=== PATIENT | male | born 1955 | race Caucasian/White ===

== ENCOUNTER 2017-03-29 21:30 | Emergency (ER) | payer BC ==
[~2017-03-29] VITALS: Ht 184.2 cm; Wt 104.4 kg
[~2017-03-29 21:30] MED LIST: ACET-1138 PO; ASPEC325 PO; CETI10TA84 PO; CHOL100010 PO; DIPH25CA5 PO; FLUT0.15 NAE; FRRG PO; HYDR2TAB3 PO; LISI-787 PO; MULT-506 PO; PRLSR20 PO
[2017-03-29 21:35] VITALS: TEMP 36.5; Ht 184.2 cm; Wt 104.4 kg
[2017-03-29] MEDS ORDERED: ASPCH81X PO (22:08)
[2017-03-29] MEDS ORDERED: CHOL1TAB42 PO (22:08)
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
[2017-03-29] MEDS ORDERED: OPTIRAY 320 IV PRN (22:15)
[2017-03-29 22:28] LABS: BASO % 0.6 %; BASO ABS # 0.05 K/uL (0-0.2); COMPLETE YES; EOS % 1.5 %; HEMATOCRIT 43.6 % (42-52); IG% 0.2 %; LYMPH % 19.8 %; MEAN CELL VOLUME 94.8 fL (80-100); MEAN CORPUSCULAR HEMOGLOBIN 32.8 pg (25-34); MEAN CORPUSCULAR HGB CONC 34.6 g/dl (32-36); MEAN PLATELET VOLUME 10.1 fL (7.4-10.4); MONO % 6.6 %; NEUT % 71.3 %; PLATELET COUNT 237 K/uL (130-400); WHITE BLOOD COUNT 8.09 K/uL (4.8-10.8)
[2017-03-29 22:44] LABS: ISTAT CREATININE 1.2 mg/dl (0.6-1.3); ISTAT HEMOGLOBIN 15.3 g/dl (14.0-18.0); ISTAT IONIZED CALCIUM 1.21 mmol/l (1.12-1.32)
[2017-03-29 22:45] LABS: CREATININE 1.44 mg/dl (0.60-1.40); POTASSIUM 3.9 mmol/L (3.5-5.1)
[2017-03-30 00:52] VITALS: BP 120/93; PULSE 64; O2SAT 94
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
== END 2017-03-30 00:54 | disposition home or self-care (01) ==
LOC: C.EDB 21:30 → C.EDC 03-30 00:54
DX: R10.13 Epigastric pain (principal); S30.1XXA Contusion of abdominal wall, initial encounter; W22.8XXA Striking against or struck by other objects, initial encounter; Y93.B9 Activity, other involving muscle strengthening exercises; Y99.8 Other external cause status; K21.9 Gastro-esophageal reflux disease without esophagitis; Z96.649 Presence of unspecified artificial hip joint; Z98.1 Arthrodesis status; Z98.890 Other specified postprocedural states; Z82.49 Family history of ischemic heart disease and other diseases of the circulatory system; Z79.82 Long term (current) use of aspirin; Z79.899 Other long term (current) drug therapy

== ENCOUNTER 2017-05-21 06:56 | Emergency (ER) | payer BC ==
[~2017-05-21] VITALS: Ht 185.4 cm; Wt 105.9 kg
[~2017-05-21 06:56] MED LIST changes: -ACET-1138 PO; +ASPCH81X PO; -ASPEC325 PO; -CHOL100010 PO; +CHOL1TAB42 PO; -DIPH25CA5 PO; -FRRG PO; -HYDR2TAB3 PO
[2017-05-21 07:05] VITALS: O2SAT 98; Ht 185.4 cm; Wt 105.9 kg
[2017-05-21] MEDS ORDERED: IBUP-1428 PO (07:25)
[2017-05-21] MEDS ORDERED: ASPI81TA28 PO (07:25)
[2017-05-21] MEDS ORDERED: ASPI325T45 PO (07:27)
[2017-05-21] MEDS ORDERED: MELATAB2 PO (07:28)
[2017-05-21 07:40] LABS: BASO % 0.6 %; BASO ABS # 0.03 K/uL (0-0.2); EOS % 1.7 %; EOS ABS # 0.09 K/uL (0-0.5); HEMATOCRIT 40.8 % (42-52); HEMOGLOBIN 14.3 g/dL (14.0-18.0); IG# 0.02 K/uL (0.00-0.02); LYMPH % 24.4 %; LYMPH ABS # 1.32 K/uL (1.2-3.4); MEAN CELL VOLUME 94.2 fL (80-100); MEAN PLATELET VOLUME 9.7 fL (7.4-10.4); MONO % 7.6 %; MONO ABS # 0.41 K/uL (0.11-0.59); NEUT % 65.3 %; NEUT ABS # 3.54 K/uL (1.4-6.5); PLATELET COUNT 201 K/uL (130-400); RED CELL DISTRIBUTION WIDTH CV 12.8 % (11.5-14.5); RED CELL DISTRIBUTION WIDTH SD 43.8 fL (36.4-46.3); WHITE BLOOD COUNT 5.41 K/uL (4.8-10.8)
--- NOTE | 2017-05-21 07:44 | DIAGNOSTIC IMAGING REPORT ---
CHEST ONE VIEW PORTABLE CLINICAL HISTORY: Atypical chest pain COMPARISON STUDY: 04/03/2015 FINDINGS: The cardiac and mediastinal contours are normal. There is no evidence of focal pulmonary consolidation. There is no evidence of failure. No pleural effusions are visualized.[ IMPRESSION: No active disease in the chest. Electronically signed by: Dennis Zafar M.D. 05/21/2017 7:43 AM Dictated Date/Time: 05/21/2017 7:39 AM
[2017-05-21] MEDS ORDERED: OPTIRAY 320 IV PRN (07:45)
[2017-05-21 07:57] LABS: ALBUMIN 3.8 gm/dl (3.4-5.0); POTASSIUM 3.8 mmol/L (3.5-5.1)
[2017-05-21 07:59] LABS: TOTAL PROTEIN 6.9 gm/dl (6.4-8.2)
--- NOTE | 2017-05-21 08:38 | DIAGNOSTIC IMAGING REPORT ---
CHEST COMBO ANGIO DISSECTION CT DOSE: 1037.36 mGy.cm HISTORY: 62 years-old Male presents with acute chest and thoracic pain with concern for possible aortic dissection. TECHNIQUE: Multiple CTA images of the chest were obtained after the intravenous administration of 93 ml Optiray 320. Coronal and sagittal MIPS were obtained from the axial data set and were submitted for review. A dose lowering technique was utilized adhering to the principles of ALARA. COMPARISON: Chest CT 03/29/2017. FINDINGS: CTA: There is no intramural hematoma identified on the noncontrast scan. Coronary arterial disease. Heart is upper limits of normal in size without pericardial effusion. The thoracic aorta is normal in both course and caliber. The imaged proximal great vessels are patent. There is no aortic dissection or aneurysm identified. Mild atherosclerosis of the thoracic aorta is present. The opacified pulmonary arterial tree is unremarkable. CT CHEST: 4 mm low attenuating nodule of the left thyroid lobe is present. No pathologic-appearing lymph nodes about the chest. There is mild dependent subsegmental atelectasis bilaterally. No pneumothorax, pleural effusion or focal airspace consolidation. Central airways appear patent. Low attenuating lesions throughout the liver again seen, largest which measures 1.2 cm within the hepatic dome, indeterminate. These may reflect hepatic cysts. Upper abdominal structures demonstrate no acute abnormality. Soft tissues are unremarkable. Degenerative changes are seen throughout the thoracic spine. IMPRESSION: 1. No acute intrathoracic abnormality identified. 2. Mild atherosclerosis of the thoracic aorta without evidence of aneurysm, dissection or intramural hematoma. The above report was generated using voice recognition software. It may contain grammatical, syntax or spelling errors. Electronically signed by: Kamron Berg M.D. 05/21/2017 8:37 AM Dictated Date/Time: 05/21/2017 8:26 AM
[2017-05-21] MEDS ORDERED: ALUMINUM/MAGNESIUM SUSP 30 ML UDC PO STA (08:47)
[2017-05-21] MEDS ORDERED: LIDOCAINE HCL 2% VISC SOLN 20 ML UDC PO STA (08:47)
[2017-05-21 10:10] VITALS: BP 132/85; PULSE 68
--- NOTE | 2017-05-21 17:32 | EMERGENCY ROOM VISIT NOTE ---
ED Visit Note First contact with patient: 07:00 Chief Complaint: Chest pain. History of Present Illness: Mr. Sanford is a 62 year-old white male who ambulates into the ED accompanied by his complaining of chest pain. Historically patient reports personal history of hypertension but no coronary artery disease or diabetes. Patient does report on 03/29/2017 he had a chest CT for trauma and was found to have mild dilatation of the proximal aspect of the descending thoracic aortic measuring up to 3.2 cm transversely but no dissection. A follow-up echocardiogram was performed and was reported him as normal; I was not able to review that result area Additionally he reports he has a history of family or valvular heart disease but no coronary disease. Patient reports intermittent chest pain for the last month. Patient has been variable on its onset of activities and resolution. He has not been assessed for his previous episodes. Patient reports he had an acute onset of upper sternal discomfort that started approximately 6 hours before he came to the emergency department. Since that time the discomfort has been constant. He describes his discomfort as a tightness sensation. He rates his discomfort 2/10. The discomfort is nonradiating. He has not identified any aggravating or alleviating factors rated to this discomfort. Associated with his discomfort he reports 2 days ago he fell walking out of his truck and is experiencing midthoracic back pain between the shoulder blades; this discomfort has not been aggravated since the onset of his chest discomfort. He does report he has taken 1 baby aspirin, his prescribed Prilosec and his blood pressure medication prior to arrival at the hospital without relief of his discomfort. Patient denies fevers, chills, sweats, skin eruptions, skin color changes, upper respiratory tract symptoms, wheezing, cough shortness of breath, orthopnea , dependent edema, previous clots, claudication, cramping, recent surgery/ inactivity/extended travel, abdominal pain, nausea, vomiting, diarrhea, constipation, rectal bleeding, black/tarry stools, urinary symptoms, back/flank pain. Review of Systems: As noted above in history of present illness. All body systems were reviewed and found to be negative as noted above. Past Medical History: As previously noted and osteoarthritis, status post right hip arthroplasty, TMJ reconstruction, left knee arthroplasty and lumbar fusion. Current Medications: Medications Dose Route/Sig Max Daily Dose Days Date Category Melatonin Maximum Strengt (Melatonin) 5 Mg Tab 2 Tab PO HS 30 05/21/17 Reported Aspirin 325 Mg Tab 325 Mg PO UD 05/21/17 Reported Motrin (Ibuprofen) 800 Mg Tab 800 Mg PO UD PRN 05/21/17 Reported Aspirin Ec (Aspirin) 81 Mg Tab 81 Mg PO HS 05/21/17 Reported Vitamin D (Cholecalciferol) 5,000 Unit Tab 5,000 Units PO QAM 03/29/17 Reported Zyrtec (Cetirizine HCl) 10 Mg Tab 10 Mg PO QAM 04/03/15 Reported Zestoretic 20MG/12.5MG (HCTZ/Lisinopril) Tab 1 Tab PO QAM 04/03/15 Reported Flonase Allergy Relief (Fluticasone Propionate (Nasal)) 50 Mcg/Act Spr 2 Sprays IRAM DAILY PRN 04/03/15 Reported Multivitamin (Multivitamins) Tab 1 Tab PO QAM 10/14/13 Reported Prilosec (Omeprazole) 20 Mg Capcr 20 Mg PO QAM 06/08/08 Reported Allergies to Medications: Oxycodone. Social History: Patient is not currently employed; he feels safe in his home environment; he denies tobacco use and admits to alcohol use. Physical Examination: Vital Signs: Date Time Temp Pulse Resp B/P (MAP) Pulse Ox O2 Delivery O2 Flow Rate FiO2 05/21/17 10:10 68 132/85 05/21/17 09:10 65 112/81 05/21/17 08:22 57 18 141/90 05/21/17 07:15 62 05/21/17 07:12 98 Room Air 05/21/17 07:05 65 18 146/99 98 Room Air GENERAL: 62-year-old female in no acute distress, nontoxic-appearing, afebrile and hemodynamically stable. NEUROLOGICAL: Awake, alert and oriented to person, place and time. Answering questions appropriately and following commands. Normal gait. Good hand eye coordination. SKIN: Warm, dry and pink. No soft tissue eruptions or trauma noted. HEENT: Atraumatic and normocephalic. PERRLA. Sclera white and conjunctiva pink. Oral cavity moist and pink. Pharynx is nonerythematous or edematous. Speech normal. No lymphadenopathy. Trachea midline. No jugular venous distention. No carotid bruits. BACK: No tenderness over the bony cervical or thoracic spine. Mild tenderness in the mid trapezius level and rhomboid muscle group area without palpable spasm. No CVA tenderness. THORAX: Lungs sounds are clear to auscultation and equal bilaterally with symmetrical chest wall. No wheezing, rales or rhonchi. No crepitus, tenderness , subcutaneous air or deformities noted. HEART: Regular rate and rhythm. No gallops, rubs or murmurs are appreciated. No lifts, heaves or thrills. PMI is not displaced. ABDOMEN: Flat and soft with mild tenderness in the epigastrium. Positive bowel sounds in all quadrants. No guarding, rigidity or organomegaly. EXTREMITIES: Moves all extremities well on command and with purpose. All distal neurovascular statuses are intact and equal bilaterally. No dependent edema or calf tenderness/cords. ED Course: Patient is assessed as noted above. Laboratory Testing: Test 05/21/17 07:25 05/21/17 07:32 Range/Units White Blood Count 5.41 4.8-10.8 K/uL Red Blood Count 4.33 4.7-6.1 M/uL Hemoglobin 14.3 14.0-18.0 g/dL Hematocrit 40.8 42-52 % Mean Corpuscular Volume 94.2 80-100 fL Mean Corpuscular Hemoglobin 33.0 25-34 pg Mean Corpuscular Hemoglobin Concent 35.0 32-36 g/dl Platelet Count 201 130-400 K/uL Mean Platelet Volume 9.7 7.4-10.4 fL Neutrophils (%) (Auto) 65.3 % Lymphocytes (%) (Auto) 24.4 % Monocytes (%) (Auto) 7.6 % Eosinophils (%) (Auto) 1.7 % Basophils (%) (Auto) 0.6 % Neutrophils # (Auto) 3.54 1.4-6.5 K/uL Lymphocytes # (Auto) 1.32 1.2-3.4 K/uL Monocytes # (Auto) 0.41 0.11-0.59 K/uL Eosinophils # (Auto) 0.09 0-0.5 K/uL Basophils # (Auto) 0.03 0-0.2 K/uL RDW Standard Deviation 43.8 36.4-46.3 fL RDW Coefficient of Variation 12.8 11.5-14.5 % Immature Granulocyte % (Auto) 0.4 % Immature Granulocyte # (Auto) 0.02 0.00-0.02 K/uL Sodium Level 139 136-145 mmol/L Potassium Level 3.8 3.5-5.1 mmol/L Chloride Level 105 98-107 mmol/L Carbon Dioxide Level 27 21-32 mmol/L Anion Gap 7.0 3-11 mmol/L Blood Urea Nitrogen 16 7-18 mg/dl Creatinine 1.00 0.60-1.40 mg/dl Est Creatinine Clear Calc Drug Dose 95.3 ml/min Estimated GFR () 91.8 Estimated GFR (Non- 79.2 BUN/Creatinine Ratio 16.3 10-20 Random Glucose 106 70-99 mg/dl Calcium Level 9.0 8.5-10.1 mg/dl Total Bilirubin 1.1 0.2-1 mg/dl Direct Bilirubin 0.2 0-0.2 mg/dl Aspartate Amino Transf (AST/SGOT) 53 15-37 U/L Alanine Aminotransferase (ALT/SGPT) 46 12-78 U/L Alkaline Phosphatase 63 45-117 U/L Total Protein 6.9 6.4-8.2 gm/dl Albumin 3.8 3.4-5.0 gm/dl Lipase 192 73-393 U/L Bedside Troponin I < 0.030 0-0.045 ng/ml Chest X-Rays: Were read by myself and the radiologist showing no acute infiltrates, effusions or pneumothorax. Normal heart silhouette and bony anatomy. Contrast CT of the Aorta: Was reviewed by myself and read by the radiologist showing no acute intrathoracic abnormalities. Mild atherosclerosis within the thoracic aorta without evidence of aneurysm, dissection or intramural hematoma. EKG #!: 0704 Was read by myself and reviewed with Dr. Posadas; shows sinus bradycardia with a ventricular rate of 59 bpm. Left axial deviation, incomplete right bundle-branch block and nonspecific EKG changes. This was compared to a previous from 2015 which shows improvement of ST inversion in the inferior leads but the incomplete right bundle-branch block appears new. EKG #2: 0940 was read myself and reviewed with Dr. Posadas; shows sinus bradycardia with a ventricular rate of 59 bpm. There is a sinus arrhythmia, left axial deviation. The new incomplete right bundle-branch findings are no longer present. There is no new ischemic changes. Patient was hydrated with normal saline. Patient was reassessed multiple times during his stay in the emergency department. Patient was given oral GI cocktail for his symptoms with the reported improvement of his chest discomfort. Patient's case was reviewed with Dr. Posadas; we agreed on diagnostic approach, treatment, disposition and plan. Patient was educated about today's findings and instructed on his treatment plan ; he verbalized understanding and agreement with this plan. Clinical Impression: Chest pain. Decision-Making: Initially my differential diagnosis I considered acute coronary syndrome, thoracic aneurysm, pneumothorax, pneumonia, pulmonary embolism, gastroesophageal reflux, esophagitis and other causes. Disposition: Patient discharged home in stable condition accompanied by his ; prior to departure he was reassessed and subjectively reported he was feeling better and rated his overall discomfort 2/10. Plan: Patient was encouraged to continue his current medications as prescribed. Patient was encouraged to stay well-hydrated, use a bland diet and avoid stomach irritants. Patient was encouraged to follow-up with family physician for recheck and possible referral to cardiology and/or gastroenterology. Patient was encouraged return ED for worsening/uncontrolled pain, shortness of breath, vomiting, bloody stools or any new/concerning symptoms.
== END 2017-05-21 10:39 | disposition home or self-care (01) ==
LOC: C.EDB 06:57
DX: R07.9 Chest pain, unspecified (principal); I10 Essential (primary) hypertension; Z96.641 Presence of right artificial hip joint; Z96.652 Presence of left artificial knee joint; Z98.1 Arthrodesis status; Z79.82 Long term (current) use of aspirin

== ENCOUNTER 2020-10-29 05:53 | Inpatient (IN) ==
--- NOTE | 2020-10-05 14:48 | PAT Medication Instructions ---
Medication Instructions Date of Service October 05, 2020 Home Medications acetaminophen 1,500 mg PO HS PRN amlodipine 5 mg PO QAM aspirin 81 mg PO HS atorvastatin 20 mg PO HS cetirizine 10 mg PO HS cholecalciferol (vitamin D3) [Vitamin D3] 125 mcg PO QAM ibuprofen 800 mg PO TID PRN lisinopril 40 mg PO QAM melatonin 10 mg PO HS metoprolol succinate 25 mg PO QAM multivitamin 1 tab PO QAM omeprazole 20 mg PO QAM trazodone 100 mg PO HS ASK your surgeon for instructions ibuprofen 800 mg PO TID PRN DO NOT take the morning of surgery cholecalciferol (vitamin D3) [Vitamin D3] 125 mcg PO QAM lisinopril 40 mg PO QAM multivitamin 1 tab PO QAM Take morning of surgery With a small sip of water, OTHERWISE NOTHING TO EAT OR DRINK AFTER MIDNIGHT: amlodipine 5 mg PO QAM metoprolol succinate 25 mg PO QAM omeprazole 20 mg PO QAM Take evening before surgery acetaminophen 1,500 mg PO HS PRN (if needed) aspirin 81 mg PO HS atorvastatin 20 mg PO HS cetirizine 10 mg PO HS melatonin 10 mg PO HS trazodone 100 mg PO HS Other Notes If you have any questions please call us at [phone] or [phone] or [phone] or [phone]
--- NOTE | 2020-10-08 14:04 | Anesthesiology Consultation ---
Date of Service October 08, 2020 Assessment & Plan (1) Encounter for pre-operative examination: COVID Status: As of 10/08 assessment, patient denies travel to endemic area, known exposure/sick contacts, or symptoms of COVID19. Patient advised to adhere to social distancing guidelines, wear a mask in public and avoid large crowds or unnecessary travel in the 2 weeks leading up to surgery. Preoperative COVID19 testing to be completed prior to surgery per surgeon's arrangements. Patient encouraged to be extra cautious/conscientious with COVID precautions between COVID testing and surgery. Pt is fully vaccinated. Pending cardio clearance 10/12. Will send EKG to [facility] cardio for their review. Chart Review Chart Review: Acceptable Risk for Surgery (pending [facility] cardio appt) and Patient seen in Pre Admission Testing Teaching & Discussion Instructed NPO after midnight before surgery, except medications with 15 cc of water. Medication instructions provided according to the PAT guidelines. History Surgery Operation Date: 10/29/20 10:05 Proposed Procedures p C5-C7 Anterior Cervical Discectomy and Fusion Spinal Cord Monitoring - Eric Whitlye DO Height/Weight Height: 6 ft 1 in Weight: 105.5 kg Allergies Allergy/AdvReac Type Severity Reaction Status Date / Time oxycodone Allergy Unknown itching Verified 10/03/20 12:45 Medications Home Medications Medication Instructions Recorded Confirmed Last Taken acetaminophen 1,500 mg PO HS PRN 10/03/20 10/03/20 Unknown amlodipine 5 mg PO QAM 10/03/20 10/03/20 Unknown aspirin 81 mg PO HS 10/03/20 10/03/20 Unknown atorvastatin 20 mg PO HS 10/03/20 10/03/20 Unknown cetirizine 10 mg PO HS 10/03/20 10/03/20 Unknown cholecalciferol (vitamin D3) 125 mcg PO QAM 10/03/20 10/03/20 Unknown [Vitamin D3] ibuprofen 800 mg PO TID PRN 10/03/20 10/03/20 Unknown lisinopril 40 mg PO QAM 10/03/20 10/03/20 Unknown melatonin 10 mg PO HS 10/03/20 10/03/20 Unknown metoprolol succinate 25 mg PO QAM 10/03/20 10/03/20 Unknown multivitamin 1 tab PO QAM 10/03/20 10/03/20 Unknown omeprazole 20 mg PO QAM 10/03/20 10/03/20 Unknown trazodone 100 mg PO HS 10/03/20 10/03/20 Unknown Past Medical History Medical History Dilatation of aorta mild? [place] [facility] cardiology [place] [facility]. GERD (gastroesophageal reflux disease) Hyperlipidemia Hypertension Nausea and vomiting after administration of anesthetic agent Ocular migraine "a couple times a year" Osteoarthritis Past Family History Family History Other No family history of adverse response to anesthesia Past Surgical History Surgical History History of colonoscopy History of esophagogastroduodenoscopy (EGD) History of mandibular surgery (~1984) to repair cartilage tear S/P epidural steroid injection S/P hip replacement bilateral S/P left knee arthroscopy S/P lumbar fusion L5-S1 Past Anesthesia History No Hx of Anesthesia Complications (other than PONV) and No Family Hx of Anesthesia Complications History of PONV History of PONV (after first ARUELIO - had general anesthesia) and Hx of Motion Sickness Social History Smoking Status: Never smoker Do You Dip or Chew Tobacco: No Hx Alcohol Use: Yes Alcohol type: beer and hard liquor alcohol intake frequency: a few times a week Hx Substance Use: No substance use type: does not use Review of Systems Pt denies any recent chest pain, shortness of breath, palpitations, cough, fever, URI. +persistent GERD depsite PPI Physical Exam Vital Signs BP: 108/71 P: 56bpm SPO2: 95% RA T: 98.5 F R: 16 ENMT Mouth: + dental restorations (few gold crowns); no chipped teeth and no loose teeth Thyromental Distance: < 3.5 Finger Breadths (3) Mallampati Class: I Neck normal visual inspection, + limited neck extension (but parathesias with full extension) and + facial hair (medum length goatee) Respiratory normal respiratory effort, lungs clear to auscultation Cardiovascular RRR, no murmur, no edema Vessels: no carotid bruit Lab Results Anesthesia Preop Results Results Anesthesia Widget: WBC 5.28 K/uL (4.8-10.8) 10/08/20 Hgb 13.8 g/dL (14.0-18.0) L 10/08/20 Hct 40.7 % (42-52) L 10/08/20 Plt 191 K/uL (130-400) 10/08/20 PT 9.9 Seconds (9.0-12.0) 10/08/20 PTT 25.0 Seconds (21.0-31.0) 10/08/20 INR 1.0 (0.9-1.1) 10/08/20 Urine Color Yellow 10/08/20 Urine Appearance Clear (Clear) 10/08/20 Urine pH 6.0 (4.5-7.5) 10/08/20 Urine Specific [place] 1.015 (1.000-1.030) 10/08/20 Urine Protein Negative (Negative) 10/08/20 Urine Glucose (UA) Negative (Negative) 10/08/20 Urine Ketones Negative (Negative) 10/08/20 Urine Blood Negative (Negative) 10/08/20 Urine Nitrite Negative (Negative) 10/08/20 Urine Bilirubin Negative (Negative) 10/08/20 Urine Urobilinogen Negative (Negative) 10/08/20 Urine Leukocyte Esterase Negative (Negative) 10/08/20 Blood Type O Positive 10/08/20 Antibody Screen NEGATIVE 10/08/20 Testing Laboratory Results 09/25/20 SODIUM: 141 POTASSIUM: 4.4 CHLORIDE: 105 CO2: 27 BUN: 16 CREATININE: 1.0 GLUCOSE: 118 Electrocardiogram Date: 10/08/20 Sinus bradycardia at 53 bpm. Left axis deviation. Nonspecific intraventricular conduction block. Compared with EKG of 05/21/2017, QRS duration has increased, criteria for septal infarct are no longer present. Echocardiogram Date: 04/29/18 EF: 62% The LV cavity size is normal. Mild concentric LVH. LV wall motion is normal. Grade 1 diastolic dysfunction of the left ventricle. The aortic root is mildly enlarged. Compared to previous study dated 04/21/2017, dimension of the aortic root is stable. Diameter of the ascending aorta is mildly increased and is now mildly enlarged. Other Testing Chest CT angiogram 08/30/2020 Subpleural reticular opacities within bilateral lower lobes, not significantly changed from 08/26/2018. No pleural effusion or pneumothorax. Central airways are clear. Unchanged mild ectasia of the aortic root without aneurysmal dilation.
[2020-10-29] MEDS ORDERED: CeleBREX 200 MG CAP PO SCH (06:00)
[2020-10-29] MEDS ORDERED: ACETAMINOPHEN 500 MG TAB PO SCH (06:00)
[2020-10-29] MEDS ORDERED: GABAPENTIN 300 MG CAP PO SCH (06:00)
[2020-10-29] MEDS ORDERED: ceFAZolin 2000MG 2,000 MG/15 ML SYR IV SCH (06:00)
[2020-10-29] MEDS ORDERED: LR 15ML/HR IV SCH (06:00)
[2020-10-29] MEDS ORDERED: PROMETHAZINE HCL 12.5 MG in SODIUM CHLORIDE 0.9% 50 ML IV PRN ×2 (07:01→11:02)
[2020-10-29] MEDS ORDERED: ePHEDrine sulfate 50 MG/ML AMP IV PRN (07:01)
[2020-10-29] MEDS ORDERED: LABETALOL HCL IV 5 MG/ML 20ML IV PRN (07:01)
[2020-10-29] MEDS ORDERED: HYDROmorphone INJ 1 MG/ML SYRINGE IV PRN ×2 (07:01→11:02)
[2020-10-29] MEDS ORDERED: FLUMAZENIL 0.1 MG/1 ML 10 ML VIAL IV PRN (07:01)
[2020-10-29] MEDS ORDERED: ATROPINE SULFATE 0.1 MG/ML 10ML SYR IV PRN (07:01)
[2020-10-29] MEDS ORDERED: ONDANSETRON INJ 2 MG/ML 2 ML VIAL IV PRN ×2 (07:01→11:02)
[2020-10-29] MEDS ORDERED: NALOXONE HCL 0.4 MG/1 ML VIAL/CARP IV PRN ×2 (07:01→11:02)
[2020-10-29] MEDS ORDERED: fentaNYL citrate 100 MCG/2 ML VIAL ONE (07:03)
[2020-10-29] MEDS ORDERED: MIDAZOLAM HCL 1 MG/ML 2ML VIAL ONE (07:03)
[2020-10-29] MEDS ORDERED: PROPOFOL IV EMULSION 10 MG/ML 100 ML VIAL IV ONE (07:15)
--- NOTE | 2020-10-29 07:30 | History & Physical Bridge Note ---
Date of Service October 29, 2020 History & Physical Bridge Note I have examined the patient, reviewed the History & Physical and in the interval since the performance of the History & Physical I have noted the following changes of clinical significance: no changes noted
--- NOTE | 2020-10-29 07:31 | History & Physical Report ---
Date of Service October 29, 2020 Assessment & Plan (1) Cervical stenosis of spinal canal: Admission and Anticipated Discharge Date Admission Date: C5-C7 anterior cervical discectomy and fusion History of Present Illness Chief Complaint: Neck and arm pain Primary Care Provider: Vinny Montero DO This is a 65-year-old male presents with chronic persistent neck and arm pain. After failing course of nonoperative care is here for surgical invention. Allergies Allergy/AdvReac Type Severity Reaction Status Date / Time oxycodone Allergy Mild itching Verified 10/29/20 06:29 Home Medications Medication Instructions Recorded Confirmed Type acetaminophen 1,500 mg PO HS PRN 10/03/20 10/29/20 History amlodipine 5 mg PO QAM 10/03/20 10/29/20 History aspirin 81 mg PO HS 10/03/20 10/29/20 History atorvastatin 20 mg PO HS 10/03/20 10/29/20 History cetirizine 10 mg PO HS 10/03/20 10/29/20 History cholecalciferol (vitamin D3) 125 mcg PO QAM 10/03/20 10/29/20 History [Vitamin D3] ibuprofen 800 mg PO TID PRN 10/03/20 10/29/20 History lisinopril 40 mg PO QAM 10/03/20 10/29/20 History melatonin 10 mg PO HS 10/03/20 10/29/20 History metoprolol succinate 25 mg PO QAM 10/03/20 10/29/20 History multivitamin 1 tab PO QAM 10/03/20 10/29/20 History omeprazole 20 mg PO QAM 10/03/20 10/29/20 History trazodone 100 mg PO HS 10/03/20 10/29/20 History Past Med/Surg History Medical History Dilatation of aorta mild? follows with [facility] cardiology and [facility] [place]. monitors annually. GERD (gastroesophageal reflux disease) Hyperlipidemia Hypertension Nausea and vomiting after administration of anesthetic agent Ocular migraine "a couple times a year" Osteoarthritis Surgical History History of colonoscopy History of esophagogastroduodenoscopy (EGD) History of mandibular surgery (~1984) to repair cartilage tear S/P epidural steroid injection S/P hip replacement bilateral S/P left knee arthroscopy S/P lumbar fusion L5-S1 Family History Other No family history of adverse response to anesthesia Social History Smoking Status: Never smoker Second Hand Exposure: No; Do You Dip or Chew Tobacco: No; Tobacco Cessation Education Requested by Patient: No Hx Alcohol Use: Yes Alcohol type: beer and hard liquor Hx Substance Use: No Preferred Language: Turkmen Communication Ability: Effective Ore Storage Drier Required: No Beliefs That Will Affect Care: None Current Living Situation: Spouse Other Information That Helps Us Care for You: No Feels Safe at Home: Yes Safety Concerns: Feels Safe At This Time Assistive Devices: Glasses Assistive Devices Comment: x1 dental implant Physical Exam Physical Exam: Patient is alert and oriented Heart regular in rhythm Lungs clear to auscultation Results & Data ([facility] [place]) Vital Signs (Past 12 Hours) Vital Signs Temp Pulse Resp BP Pulse Ox 10/29/20 06:32 36.6 C 53 L 20 123/94 95
[2020-10-29] MEDS ORDERED: HYDROmorphone INJ 2 MG/ML SYR/VIAL ONE (08:24)
[2020-10-29] MEDS ORDERED: ePHEDrine sulfate 50 MG/ML SYR ONE (08:26)
[2020-10-29] MEDS ORDERED: PHENYLEPHRINE 100MCG/ML 5ML SYR ONE (08:26)
[2020-10-29] MEDS ORDERED: GLYCOPYRROLATE 0.2 MG/ML VIAL ONE (08:26)
[2020-10-29] MEDS ORDERED: DEXAMETHASONE SOD INJ 4 MG/ML VIAL ONE (08:26)
[2020-10-29] MEDS ORDERED: LARYING-O-JET KIT (LTA) ONE (08:26)
[2020-10-29] MEDS ORDERED: PROPOFOL IV EMULSION 10 MG/ML 20 ML VIAL IV ONE (08:26)
[2020-10-29] MEDS ORDERED: LIDOCAINE 2% 2 ML VIAL/AMP(20MG/ML) INFIL ONE (08:26)
[2020-10-29] MEDS ORDERED: ONDANSETRON INJ 2 MG/ML 2 ML VIAL ONE (08:26)
[2020-10-29] MEDS ORDERED: SUCCINYLCHOLINE CHLORIDE 20 MG/ML 10 ML VIAL IV ONE (08:26)
[2020-10-29] MEDS ORDERED: FLOSEAL HEMOSTATIC MATRIX 10ML TOP ONE (08:30)
--- NOTE | 2020-10-29 09:28 | Operative Report ---
Post Operative Report Pre & Post Diagnosis Operation Date: 10/29/20 07:45 Pre-Op Diagnosis: Spinal Stenosis Cervical Region Post-Op Diagnosis: Spinal Stenosis Cervical Region I identified the patient and participated in the time-out.: Yes Procedure Operation Date: 10/29/20 07:45 Actual Procedures #1 Anterior cervical discectomy with bilateral foraminotomies C5-6 and C6-C7. #2 anterior cervical arthrodesis C5-C6 C6-C7. #3 placement of Spira 9 mm cage at C5-C6 and 8 mm cage at C6-C7 both filled with I factor. #4 application 5 complete screws from C5-C7. Surgeon Erci Whitley, DO Cafeteria Counter Attendant Carla Shay Estimated Blood Loss 10 Findings Consistent with Post-Op Diagnosis Specimens None Indications This is a 65-year-old male well-known to me the presents with above-mentioned diagnosis after failing extensive course of nonoperative care is here for the above-mentioned procedure. Description of Procedure Patient met with identified informed consent obtained. Patient was then taken to the operative suite underwent ablation placed in supine position Chaitanya table the head [employer]. All bony prominences well-padded eyes inspected to ensure no external pressure placed upon them. This point the anterior cervical spine was prepped and draped in a sterile fashion. Sharp dissection with the assistance of bipolar electrocautery performed down to and exposing anterior cervical spine from C5-C7. Self-retaining retractors placed. Then performed a complete discectomy of C5-C6 out to the uncovertebral's bilaterally. [place] distraction pins were utilized to assist in visualization. Removed all posterior annular fibers and longitudinal ligament and performed bilateral foraminotomies addressing all stenosis. The endplates were then burred to subcortical bleeding bone and a 9 mm spiral cage filled I factor tapped in position. Then proceeded to C6-C7. Again complete discectomy performed out to the uncovertebral's bilaterally. [place] distractor pins again utilized. Removed all posterior annular fibers longitudinal ligament bilateral foraminotomies performed. Endplates were then burred to subcortical bleeding bone and an 8 mm spiral cage filled with I factor tapped in position. Distracting apparatus was removed all anterior osteophytes burred to a smooth cortical surface and a 5 complete screws applied with the assistance of fluoroscopy. The incision was then copiously irrigated explored to ensure no damage to surrounding structures remaining bleeding. 10 round MARY drain inserted. Incision was then closed with 2 Vicryl in the fascia and 4 Monocryl for final skin closure. Steri-Strip sterile dressings placed. Patient waken taken PACU stable condition. Please note spinal cord monitoring was realized at the procedure no changes noted. Lastly Carla Shay was present at the entire surgery involved the patient positioning complex portions of the surgery and final skin closure. I attest to the content of the Intraoperative Record and any orders documented therein. Any exceptions are noted below.
--- NOTE | 2020-10-29 09:59 | Fluoroscopy Report ---
FL cervical 2-3V CLINICAL HISTORY: ACDF C5-7 COMPARISON STUDY: None FLUOROSCOPY TIME: 7 seconds. NUMBER OF FLUOROSCOPIC IMAGES: 2 FINDINGS: 2 intraoperative fluoroscopic spot images demonstrate postsurgical changes of an anterior c ervical discectomy and fusion at the C5-7 level. IMPRESSION: Intraoperative fluoroscopic spot images demonstrating anterior cervical discectomy and f usion at the C5-7 level. ACT 112: Negative or not required by law. Electronically signed by: Dennis Zafar M.D. 10/29/2020 9:58 AM
[2020-10-29] MEDS: fentaNYL citrate 100 MCG/2 ML VIAL IV PRN ×4 (10:00→10:15)
--- NOTE | 2020-10-29 10:50 | Anesthesiology Progress Note ---
Date of Service October 29, 2020 Anesthesia Post Procedure Vital Signs Vital Signs: Temp Pulse Pulse Resp BP BP Pulse Ox 10/29/20 10:35 36.3 C L 62 16 110/66 94 10/29/20 10:25 68 16 113/74 94 10/29/20 10:15 64 16 114/50 L 94 10/29/20 10:05 61 16 96/45 L 94 10/29/20 09:55 73 16 93/64 L 94 10/29/20 09:45 57 L 16 108/65 96 10/29/20 09:37 36.0 C L 61 16 98/43 L 96 10/29/20 06:32 36.6 C 53 L 20 123/94 95 Pain Intensity Neck: Pain Intensity: 5 Transfer of Care Handoff Completed per policy Notes Mental Status: alert / awake / arousable Patient Amnestic to Procedure: Yes Nausea / Vomiting: adequately controlled Pain: adequately controlled Airway Patency, RR, SpO2: stable & adequate BP & HR: stable & adequate Hydration State: stable & adequate Anesthetic Complications: no major complications apparent
[2020-10-29] MEDS ORDERED: dexAMETHasone 8 MG in SYRINGE 0 ML IV PRN (11:02)
[2020-10-29] MEDS ORDERED: LORazepam 0.5 MG/1 ML VIAL IV PRN (11:02)
[2020-10-29] MEDS ORDERED: DO NOT ADMINISTER FLU VACCINE PRN (11:02)
[2020-10-29] MEDS ORDERED: FAMOTIDINE 20 MG TAB PO PRN (11:02)
[2020-10-29] MEDS ORDERED: MAGNESIUM HYDROXIDE SUSP 30 ML UDC PO PRN (11:02)
[2020-10-29] MEDS ORDERED: SOD PHOSPHATE/SOD BIPHOSPHATE ENEMA 132 ML BTL PR PRN (11:02)
[2020-10-29] MEDS ORDERED: HYDROmorphone INJ 0.5 MG/0.5 ML SYR IV PRN (11:02)
[2020-10-29] MEDS ORDERED: ACETAMINOPHEN 1,000 MG/100 ML VIAL IV PRN (11:02)
[2020-10-29] MEDS ORDERED: hydrOXYzine HCl 25 MG TAB PO PRN (11:02)
[2020-10-29] MEDS ORDERED: RACEPINEPHRINE 2.25% NEBU SOLN 0.5 ML VIAL INH PRN (11:02)
[2020-10-29] MEDS ORDERED: ONDANSETRON 4 MG OD TAB PO PRN (11:02)
[2020-10-29] MEDS ORDERED: ACETAMINOPHEN 500 MG TAB PO PRN (11:02)
[2020-10-29] MEDS ORDERED: traMADol HCL 50 MG TABLET PO PRN (11:02)
[2020-10-29] MEDS ORDERED: ALUMINUM/MAGNESIUM SUSP 30 ML UDC PO PRN (11:02)
[2020-10-29] MEDS ORDERED: METOCLOPRAMIDE HCL INJ 5 MG/ML 2 ML VIAL IV PRN (11:02)
[2020-10-29] MEDS ORDERED: LORazepam 0.5 MG TAB PO PRN (11:02)
[2020-10-29] MEDS ORDERED: DO NOT ADMINISTER PNEUMOCOCCAL VACCINE PRN (11:02)
[2020-10-29] MEDS ORDERED: diphenhydrAMINE Capsule 25 MG CAP PO PRN (11:02)
--- NOTE | 2020-10-29 11:25 | Hospitalist Consultation ---
Date of Consultation October 29, 2020 Assessment & Plan (1) Cervical stenosis of spinal canal: POD #0 - Anterior Cervical Discectomy and Fusion - Pain control, DVT prophylaxis, activity per primary service - Encourage incentive spirometry - Check AM labs (2) Hypertension: BP at present appears well-controlled - Continue to monitor closely - Continue home meds (3) Dyslipidemia: - Continue statin therapy (4) Prediabetes: A1c has been stable per pt x 5 years - does not follow any specific diet (although eats relatively healthy at baseline) or take any medications (5) GERD (gastroesophageal reflux disease): - Continue PPI therapy Pt seen and reviewed with collaborating physician, Dr. Bartlett. Plan of care discussed and as outlined above. We will continue to follow this patient with you. A member of the [facility]ist team is available 24/11 via [employer]. Please do not hesitate to reach out with questions or concerns. Thank you for this consultation. Charlie Brown PA-C Supervising Physician Co-Signing Physician Notes I saw this patient with the physician financial assistant, I participated in the history, physical, review of systems, and physical exam on this consult. I reviewed the medications with the patient and the physician financial assistant and helped reconcile the medications. I helped take a detailed family and social history as well. I formulated the assessment and plan personally with the physician financial assistant and went over it with the patient. ROS-No Headache, No Visual Changes, No Nausea, No Vomiting, No Fever, No Chills, No Neck Pain or Stiffness, No Chest Pain, No Palpitations, No SOB, No JIMÉNEZ, No Cough, No Sputum, No Wheezing, No Abdominal Pain, No Diarrhea, No Hematemesis, No Hemoptysis, No Unexpected Weight Loss, No Flank pain, No Melena, No Hematochezia, No Frequency, No Urgency, No Burning, No Hematuria, No Rashes, No Diaphoresis. Appetite is Normal, sore post neck-positional Physical Exam Gen-AAO x 3, NAD, Afebrile, + Collar, +Drain Head-NCAT, EOMI, PERRLA, Anicteric Sclera, No Posterior Pharyngeal Erythema Neck-Supple, No JVD, No Thyromegaly, No Masses, No LAD, No Bruits Lungs-Clear to Auscultation Bilaterally, No Rales, No Rhonchi, No Wheezing, No Crepitus Chest-No S4, +S1, +S2, No S3, No Murmurs, No Rubs, No Gallops, No Ectopy Abdomen-Soft, Bowel Sounds Present, Non Tender, Non Distended, No Hepatomegaly, No Splenomegaly, No Palpable Masses, No Rebound, No Rigidity, No Guarding Musculoskeletal-Full Range of Motion Bilaterally, No CVAT Extremities-No Cyanosis, No Clubbing, No Edema Nuero-Cranial Nerves II-XII grossly intact, Motor WNL, DTRs WNL, Strength WNL, Non Focal Psych-Normal Mood History of Present Illness Reason for Consultation: Post-Operative Medical Management Requesting Physician: Dr. Eric Whitley Attending Physician: Eric Whitley, DO History of Present Illness This is a 65 y/o male with a PMH of HTN, aortic root aneurysm, dyslipidemia, GERD, and prediabetes (last A1c = 5.7 in Jun 2020) who underwent anterior cervical discectomy and fusion today by Dr. Whitley and for whom we have now been consulted for post-operative medical management. Pt reports ongoing neck issues for the past 3-4 years that started after he carried a tree stand uphill. Pain has been worsening, now with radiation to shoulders and upper arms, although may be relieved with specific positions. Ongoing intermittent "pins and needles" in bilateral hands, right > left. Pt is typically very active, preferring to hike and bike, but neck issues are interfering with his ability to remain active. He was taking ibuprofen 800 mg BID pre-op to help with pain. Currently, pt reports "tension pain" in his neck post-operatively. He denies radiation into arms at present. No numbness or tingling. He does c/o dry mouth, mild sore throat but denies any significant dysphagia. Chronic issues with pills sticking at times. Denies chest pain, palpitations, SOB, cough, N/V/D, BASURTO, dizziness. Allergies Allergy/AdvReac Type Severity Reaction Status Date / Time oxycodone Allergy Mild itching Verified 10/29/20 06:29 Home Medications Medication Instructions Recorded Confirmed Type acetaminophen 1,500 mg PO HS PRN 10/03/20 10/29/20 History amlodipine 5 mg PO QAM 10/03/20 10/29/20 History aspirin 81 mg PO HS 10/03/20 10/29/20 History atorvastatin 20 mg PO HS 10/03/20 10/29/20 History cetirizine 10 mg PO HS 10/03/20 10/29/20 History cholecalciferol (vitamin D3) 125 mcg PO QAM 10/03/20 10/29/20 History [Vitamin D3] ibuprofen 800 mg PO TID PRN 10/03/20 10/29/20 History lisinopril 40 mg PO QAM 10/03/20 10/29/20 History melatonin 10 mg PO HS 10/03/20 10/29/20 History metoprolol succinate 25 mg PO QAM 10/03/20 10/29/20 History multivitamin 1 tab PO QAM 10/03/20 10/29/20 History omeprazole 20 mg PO QAM 10/03/20 10/29/20 History trazodone 100 mg PO HS 10/03/20 10/29/20 History oxycodone 5 mg PO Q6H PRN #20 tab 10/29/20 Rx tramadol 50 mg PO Q6H PRN #20 tab 10/29/20 Rx Patient History Medical History Aortic root aneurysm Dyslipidemia GERD (gastroesophageal reflux disease) Hypertension Nausea and vomiting after administration of anesthetic agent Ocular migraine "a couple times a year" Osteoarthritis Prediabetes Surgical History History of colonoscopy History of esophagogastroduodenoscopy (EGD) History of mandibular surgery (~1984) to repair cartilage tear S/P epidural steroid injection S/P hip replacement bilateral S/P left knee arthroscopy S/P lumbar fusion L5-S1 Family History Daughter Leukemia Sister Multiple sclerosis Mother Hypertension Other No family history of adverse response to anesthesia Social History (Updated 10/29/20 @ 11:24 by Lori Brown PA-C) Smoking Status: Never smoker Second Hand Exposure: No; Do You Dip or Chew Tobacco: No; Tobacco Cessation Education Requested by Patient: No Hx Alcohol Use: Yes Alcohol type: beer and hard liquor Alcohol Intake Frequency: 2-4 x/Month Hx Substance Use: No Preferred Language: Irish Communication Ability: Effective Sour Bleaching Pleater Required: No Beliefs That Will Affect Care: None Current Living Situation: Spouse Other Information That Helps Us Care for You: No Feels Safe at Home: Yes Safety Concerns: Feels Safe At This Time Assistive Devices: Glasses Assistive Devices Comment: x1 dental implant Review of Systems Review of Systems: All systems reviewed & are unremarkable except as noted in HPI & below Constitutional: no fever, no chills, no sweats and no fatigue Eyes: no diplopia and no worsening vision Ear, Nose, Mouth, Throat: + dry mouth and + sore throat; no nasal congestion Respiratory: no cough, no dyspnea and no wheezing Cardiovascular: no chest pain, no palpitations, no syncope and no edema Gastrointestinal: no abdominal pain, no nausea, no vomiting and no diarrhea/loose stools Genitourinary: no dysuria and no hematuria Musculoskeletal: + neck pain; no back pain and no joint pain Integumentary: no rash and no skin ulcer Neurologic: as per Subjective / HPI; no seizure-like activity, no headache(s) and no confusion Psychiatric: no depression and no anxiety Physical Exam Constitutional: WD/WN, vitals as above no acute distress Eyes: + anicteric sclerae; no conjunctival abnormality Neck: hard cervical collar in place - MARY drain with small amount of sanguinous drainage Respiratory: no respiratory distress and no labored breathing Auscultation: lungs clear to auscultation bilaterally; no rales, no rhonchi and no wheezes Cardiovascular: Rate/Rhythm: regular rate and regular rhythm Heart Sounds: no gallop, no murmur and no cardiac rub Gastrointestinal (Abdomen): Inspection/Auscultation: normal bowel sounds; abdomen not distended Percussion/Palpation: abdomen soft; abdomen nontender Musculoskeletal: Extremities: no cyanosis and no clubbing Ophthalmic Medical Assistant stregnth 5/5 bilaterally and equal Skin: no rashes, warm and dry Neurologic: sensation to light touch intact bilateral UE Psychiatric: A+Ox3, euthymic affect Results & Data Results & Data ([facility]) Vital Signs (Past 12 Hours) Vital Signs Temp Pulse Pulse Resp BP BP Pulse Ox 10/29/20 10:35 36.3 C L 62 16 110/66 94 10/29/20 10:25 68 16 113/74 94 10/29/20 10:15 64 16 114/50 L 94 10/29/20 10:05 61 16 96/45 L 94 10/29/20 09:55 73 16 93/64 L 94 10/29/20 09:45 57 L 16 108/65 96 10/29/20 09:37 36.0 C L 61 16 98/43 L 96 10/29/20 06:32 36.6 C 53 L 20 123/94 95 Laboratory Results 10/29/20 10/29/20 10/29/20 06:25 06:27 06:27 COVID-19 Eval Order Covid19 IDNow [facility] SARS-CoV-2, RNA, NAAT NEGATIVE Blood Type O Positive Antibody Screen NEGATIVE Crossmatch See Detail Medications Administered Acetaminophen (Acetaminophen 500 Mg Tab) 1,000 mg PO PREOP FAISAL Stop: 10/29/20 18:00 Last Admin: 10/29/20 06:49 Dose: 1,000 mg Documented by: [id number] Celecoxib (Celebrex 200 Mg Cap) 200 mg PO PREOP FAISAL Stop: 10/29/20 18:00 Last Admin: 10/29/20 06:48 Dose: 200 mg Documented by: [id number] Fentanyl Citrate (Fentanyl Citrate 100 Mcg/2 Ml Vial) 25 mcg IV Q5M PRN PRN Reason: PACU Use Only-Pain Stop: 10/29/20 15:01 Last Admin: 10/29/20 10:15 Dose: 25 mcg Documented by: [id number] Admin: 10/29/20 10:10 Dose: 25 mcg Documented by: [id number] Admin: 10/29/20 10:05 Dose: 25 mcg Documented by: [id number] Admin: 10/29/20 10:00 Dose: 25 mcg Documented by: [id number] Gabapentin (Gabapentin 300 Mg Cap) 300 mg PO PREOP FAISAL Stop: 10/29/20 18:00 Last Admin: 10/29/20 06:48 Dose: 300 mg Documented by: [id number] Lactated Ringer's (Lr) 1,000 mls @ 15 mls/hr IV .Q24H FAISAL Stop: 10/30/20 05:59 Last Infusion: 10/29/20 07:43 Dose: 0 mls/hr Documented by: [id number] Admin: 10/29/20 06:25 Dose: 15 mls/hr Documented by: [id number] Cefazolin Sodium (Ancef 2000mg) 2,000 mg in 15 mls @ 3.75 mls/min IV PREOP FAISAL; Protocol Stop: 10/29/20 18:00 Last Admin: 10/29/20 07:43 Dose: 3.75 mls/min Documented by: [id number] Discontinued Medications Cefazolin Sodium (Cefazolin 250 Mg/Ml 1 Gm Vial) Confirm Administered Dose 1,000 mg .ROUTE .STK-MED ONE Stop: 10/29/20 07:03 Last Admin: 10/29/20 08:29 Dose: 1,000 mg Documented by: [id number] Miscellaneous ( Floseal Hemostatic Matrix 10ml) 10 ml TOP ONCE ONE Stop: 10/29/20 08:31 Last Admin: 10/29/20 09:17 Dose: 10 ml Documented by: [id number] (1) GERD (gastroesophageal reflux disease) Esophagitis presence: without esophagitis Qualified Code(s): K21.9 - Gastro- esophageal reflux disease without esophagitis (2) Hypertension Hypertension type: essential hypertension Qualified Code(s): I10 - Essential (primary) hypertension
[2020-10-29] MEDS: HYDROCODONE/ACETAMOPHEN 5/325MG TAB PO PRN ×4 (11:49→23:45)
[2020-10-29] MEDS: LACTATED RINGER'S 1,000 ML IV SCH ×2 (13:20→22:53)
[2020-10-29] MEDS: ceFAZolin 2000MG 2,000 MG/15 ML SYR IV SCH ×2 (16:07→23:46)
[2020-10-29] MEDS ORDERED: CETIRIZINE HCL 10 MG TABLET PO SCH (21:00)
[2020-10-29] MEDS ORDERED: ATORVASTATIN 20 MG TAB PO SCH (21:00)
[2020-10-29] MEDS ORDERED: DOCUSATE SODIUM/SENNA 50/8.6MG TAB PO SCH (21:00)
[2020-10-29] MEDS ORDERED: traZODone HCL 100 MG TAB PO SCH (21:00)
[2020-10-29] MEDS ORDERED: MELATONIN 3 MG TAB PO SCH (21:00)
[2020-10-29] MEDS ORDERED: ASPIRIN 81 MG ECTAB PO SCH (21:00)
[2020-10-30] MEDS ORDERED: POLYETHYLENE (MIRALAX) 17 GM PACK PO SCH (06:00)
[2020-10-30] MEDS ORDERED: amLODIPine BESYLATE 5 MG TAB PO SCH (09:00)
[2020-10-30] MEDS ORDERED: METOPROLOL SUCC 25MG EXT REL TAB PO SCH (09:00)
[2020-10-30] MEDS ORDERED: MULTIVITAMIN TAB PO SCH (09:00)
[2020-10-30] MEDS ORDERED: PANTOprazole 40 MG TAB PO SCH (09:00)
[2020-10-30] MEDS ORDERED: CHOLECALCIFEROL 1,000 UNITS 25 MCG TAB PO SCH (09:00)
[2020-10-30] MEDS ORDERED: lisinopril 40 MG TAB PO SCH (09:00)
--- NOTE | 2020-10-30 09:33 | Discharge Summary ---
Date of Service October 30, 2020 Admission HPI Per Admitting Provider This is a 65-year-old male presents with chronic persistent neck and arm pain. After failing course of nonoperative care is here for surgical invention. Principal Diagnosis Cervical spinal stenosis with radiculopathy Discharge Data Allergies Allergy/AdvReac Type Severity Reaction Status Date / Time oxycodone Allergy Mild itching Verified 10/29/20 06:29 Consultations 10/29/20 11:02 Consult Hospitalist Routine Procedures Performed Operation Date: 10/29/20 07:45 Actual Procedures p C5-C7 Anterior Cervical Discectomy and Fusion Spinal Cord Monitoring(Not Applicable) - Eric Whitley DO Ordered Studies 10/29/20 07:45 FL cervical 2-3V Routine Hospital Course (1) Cervical stenosis of spinal canal: Patient went anterior cervical discectomy fusion tolerates well second orthopedic for postoperative postop day 1 he was up and ambulating. He is swallowing well. No hoarseness. X strength testing. MARY drain decreasing appropriately. Subsequent discharge home. Discharge orders instructions from the chart for further review. Total Time Total Time Spent Total Time Spent (In Minutes): 20 minutes Discharge Plan Discharge Items Patient Disposition: Home - Self-Care Reason For Visit: Spinal Stenosis Cervical Region Discharge Diagnosis: Cervical spinal stenosis with radiculopathy Activity: As commented below Non-emergency contact: Primary Care Provider Call non-emergency contact if: you have any medication questions Follow-up/Referrals: Vinny Montero DO [Primary Care Provider] - Diet: Regular Addtl Attending Provider Instructions: ACTIVITY RECOMMENDATIONS: SELF CARE INSTRUCTIONS AFTER CERVICAL FUSIONS 1. No smoking. Smoking drastically decreases the chance of a solid fusion. 2. No bending, lifting more than 5 pounds, or twisting (roll like a log when turning in bed). 3. You may shower 3 days after surgery. Thoroughly dry wound. Do not soak in the tub. 4. Cervical collar: Must be worn at all times including sleeping. You may remove the brace only to bath, eat and if you are sitting in a recliner. 5. Please walk as much as you can for exercise. Gradually increase the distance that you walk as your endurance increases. SPECIAL CARE INSTRUCTIONS: VERY IMPORTANT TO READ AND REVIEW A. Do not take any anti-inflammatory medications (i.e. Indocin, Advil, Aspirin, Naprosyn, Aleve, Motrin, etc.) as these may inhibit the chance of a solid fusion. Tylenol is okay to take. B. Your surgical incision has been closed with a cosmetic suture under the skin that will dissolve in about 6 weeks. In 14 days, you can use a pair of clean scissors and cut the suture that is left outside of the skin at the ends of your incision. C. Complications are uncommon, but please contact us if you have any signs or symptoms of: 1. wound infection (fever higher than 102.5 degrees F, redness, separation of wound, drainage, or increasing pain from the incision) 2. blood clots in legs (pain, swelling, redness and warmth in legs) 3. urinary tract infection (fever higher than 102.5 degrees, burning upon urination or increased frequency of urination) 4. nerve problems (inability to walk on your toes or heels, numbness, loss of bowel or bladder control) 5. any other symptoms that concern you. D. Please call the office at if you have any concerns or questions about your operation or recovery. MANAGING PAIN AFTER SPINAL SURGERY 1. Narcotic medication is intended for short-term use and will be provided for surgical pain. Surgical pain usually lasts for a period of 4-6 weeks. Narcotic medication includes Percocet, Vicodin, Darvocet, Tylenol #3 or Lortab. 2. Longer-term pain is more appropriately treated with non-narcotic medication such as Tylenol ES. 3. Muscle spasm is not appropriately treated with narcotics. Muscle relaxers such as Soma, Flexeril or Skelaxin can be used along with Tylenol ES. 4. Remember that we all live with some "aches and pains". This is not unusual or uncommon after an injury or as we get older. 5. We will provide appropriate medication within the normal guidelines of their prescribed use. We will also be very cautious and aware of potential abuse and extended duration of patients' medication needs. 6. Please allow 2-3 days to process refills. Prescriptions will not be mailed but must be picked up at the office. FOLLOW UP VISIT: Keep your scheduled follow-up appointment. Any questions, please call the office at . Pending Studies at Discharge: No Stand-Alone Forms: [facility], Smoking Cessation Medications and DC Order Prescriptions: New oxycodone 5 mg tablet 5 mg PO Q6H PRN (Reason: pain, severe) Qty: 20 RF: 0 tramadol 50 mg tablet 50 mg PO Q6H PRN (Reason: pain, moderate) Qty: 20 RF: 0 Continued multivitamin Tablet 1 tab PO QAM RF: 0 atorvastatin 20 mg Tablet 20 mg PO HS RF: 0 cetirizine 10 mg Tablet 10 mg PO HS RF: 0 amlodipine 5 mg Tablet 5 mg PO QAM RF: 0 ibuprofen 200 mg Tablet 800 mg PO TID PRN (Reason: Pain) RF: 0 omeprazole 20 mg Capsule,Delayed Release(Dr/Ec) 20 mg PO QAM RF: 0 aspirin 81 mg Tablet 81 mg PO HS RF: 0 metoprolol succinate 25 mg Tablet Extended Release 24 Hr 25 mg PO QAM RF: 0 lisinopril 40 mg Tablet 40 mg PO QAM RF: 0 cholecalciferol (vitamin D3) [Vitamin D3] 125 mcg (5,000 unit) Tablet 125 mcg PO QAM RF: 0 melatonin 10 mg Tablet 10 mg PO HS RF: 0 acetaminophen 500 mg Tablet 1,500 mg PO HS PRN (Reason: Pain) RF: 0 trazodone 100 mg Tablet 100 mg PO HS RF: 0 Discharge Orders: Discharge Order (Routine); Ordered 10/30/20 Ordered By: Eric Whitley Admission Data Admit Date/Time: 10/29/20 11:02 Attending Provider: Eric Whitley Admit Provider: Eric Whitley Primary Care Provider: Vinny Montero Other Providers: Yoel Bartlett
--- NOTE | 2020-10-30 09:54 | Hospitalist Progress Note ---
Date of Service October 30, 2020 Assessment & Plan (1) Cervical stenosis of spinal canal: POD #1 - Anterior Cervical Discectomy and Fusion - Pain control, DVT prophylaxis, activity per primary service - Encourage incentive spirometry - Check AM labs (2) Hypertension: BP at present appears well-controlled - Continue to monitor closely - Continue home meds (3) Dyslipidemia: - Continue statin therapy (4) Prediabetes: A1c has been stable per pt x 5 years - does not follow any specific diet (although eats relatively healthy at baseline) or take any medications (5) GERD (gastroesophageal reflux disease): - Continue PPI therapy OK for DC ROS-No Headache, No Visual Changes, No Nausea, No Vomiting, No Fever, No Chills, No Neck Pain or Stiffness, No Chest Pain, No Palpitations, No SOB, No JIMÉNEZ, No Cough, No Sputum, No Wheezing, No Abdominal Pain, No Diarrhea, No Hematemesis, No Hemoptysis, No Unexpected Weight Loss, No Flank pain, No Melena, No Hematochezia, No Frequency, No Urgency, No Burning, No Hematuria, No Rashes, No Diaphoresis. Appetite is Normal Physical Exam Gen-AAO x 3, NAD, Afebrile, Drain and collar in place Head-NCAT, EOMI, PERRLA, Anicteric Sclera, No Posterior Pharyngeal Erythema Neck-Supple, No JVD, No Thyromegaly, No Masses, No LAD, No Bruits Lungs-Clear to Auscultation Bilaterally, No Rales, No Rhonchi, No Wheezing, No Crepitus Chest-No S4, +S1, +S2, No S3, No Murmurs, No Rubs, No Gallops, No Ectopy Abdomen-Soft, Bowel Sounds Present, Non Tender, Non Distended, No Hepatomegaly, No Splenomegaly, No Palpable Masses, No Rebound, No Rigidity, No Guarding Musculoskeletal-Full Range of Motion Bilaterally, No CVAT Extremities-No Cyanosis, No Clubbing, No Edema Nuero-Cranial Nerves II-XII grossly intact, Motor WNL, DTRs WNL, Strength WNL, Non Focal Psych-Normal Mood Admission and Anticipated Discharge Date Admission Date: October 29, 2020 Results & Data Results & Data ([facility]) Vital Signs (Past 12 Hours) Vital Signs Temp Pulse Resp BP Pulse Ox 10/30/20 07:57 36.8 C 64 20 143/90 H 94 10/30/20 07:09 71 20 93 10/30/20 05:32 36.5 C 60 16 146/95 H 96 10/30/20 03:50 59 L 16 144/91 H 93 10/30/20 02:26 57 L 12 96 10/30/20 01:50 36.5 C 62 16 122/81 94 10/29/20 23:50 36.4 C L 66 16 130/82 93 10/29/20 23:07 62 12 96 (1) Hypertension Hypertension type: essential hypertension Qualified Code(s): I10 - Essential (primary) hypertension (2) GERD (gastroesophageal reflux disease) Esophagitis presence: without esophagitis Qualified Code(s): K21.9 - Gastro- esophageal reflux disease without esophagitis
[2020-10-30] MEDS: HYDROCODONE/ACETAMOPHEN 5/325MG TAB PO PRN (11:24)
[2020-10-31] MEDS ORDERED: bisacodyL 10 MG SUPP PR PRN (08:00)
== END 2020-10-30 13:08 | disposition home or self-care (01) | DRG 473 ==
LOC: ASU 05:53 → 3E 11:02

== ENCOUNTER 2025-04-03 17:58 | Inpatient (IN) ==
[2025-04-03] MEDS: AMIODARONE / D5W 150 MG/100 ML BAG IV STA (18:10)
[2025-04-03] MEDS: MIDAZOLAM HCL 5 MG/ML 2ML VIAL IV STA (18:14)
[2025-04-03] MEDS ORDERED: 0.2 MICRON FILTER SET 1 EACH IV STA (18:19)
[2025-04-03] MEDS: STAT IV Infusion **Titration per Protocol STA (18:19)
[2025-04-03] MEDS: AMIODARONE / D5W 360 MG/200 ML BAG IV ONE (18:20)
[2025-04-03] MEDS: AMIODARONE 360MG / 200ML D5W IV ONE (18:30)
[2025-04-03] MEDS: MIDAZOLAM HCL 5 MG/ML 2ML VIAL ONE (18:30)
[2025-04-03] MEDS: AMIODARONE 150MG / 100ML D5W IV ONE (18:30)
[2025-04-03] MEDS: AMIODARONE IV BOLUS & DRIP IV STA (18:30)
--- NOTE | 2025-04-03 18:32 | Emergency Department Note ---
Impression & Plan Ventricular tachycardia, Chest pain, History of cardioversion, New onset a-fib, Dizziness ED Provider Note HISTORY OF PRESENT ILLNESS: Patient is a 70-year-old male presenting with chest pain. Patient reports he was [place] at around 5:30 PM when he developed substernal chest pressure. He denies any radiation of the pain and locates it just to the substernal and xiphoid process region of his chest. He reports has never had pain like this before. He reported feeling very lightheaded and dizzy. Was able to get to his vehicle and brought him to the ER. Patient denies any history of cardiac stents. He is not on any anticoagulation or antiplatelet therapies. He currently is complaining of pain in the chest. Reports some associated shortness of breath. Denies any nausea or vomiting. Denies any DVT or PE history. He denies any recent changes to medications. ROS: as above PHYSICAL EXAM: Constitutional: Patient appears in no acute distress. Diaphoretic. HENT: Head: Normocephalic and atraumatic. Eyes: EOMI, PERRL Mouth/Throat: Mucous membranes moist. Neck: Trachea midline. Neck supple. Cardiovascular: Tachycardic. No murmurs, rubs or gallops. Intact distal pulses. Pulmonary/Chest: No respiratory distress. Breath sounds clear and equal bilaterally. No wheezes or rales. Abdominal: Abdomen soft, no tenderness, rebound or guarding. Musculoskeletal: No edema, tenderness or deformity noted. Skin: Warm and dry. No rash, erythema, pallor or cyanosis Psychiatric: Appropriate mood and affect for situation. Neurological: Alert and keenly responsive. CN II-XII grossly intact, moving all extremities equally and fully. MDM: - Vitals signs showed tachycardia. Patient's initial blood pressure was initially stable, but on repeat examination her blood pressure was unable to be found by manual or automatic blood pressure cuff. Patient's heart rate persistently in the 230s to 250s and a wide-complex tachycardia. Discussed vital sign instability and need for emergent cardioversion with the patient. He was verbally consented and his at bedside was in agreement. -IV access was obtained. Patient given 5 mg of IV Versed for the anxiolytic prior to cardioversion. Synchronized cardioversion with 200 J performed with improvement in heart rate to the 60s. Repeat EKG showed atrial fibrillation as dictated below. Patient placed on supplemental oxygen post Versed dosing. - History obtained via patient. History as above. - Chronic conditions affecting care: GERD; HLD; aortic root aneurysm - Differential diagnoses include, but are not limited to: Dysrhythmia; ACS; aortic dissection; pneumonia - Order placed for continuous cardiac monitoring. At this time, monitor showed rate of 243 bpm with wide-complex regular rhythm, per my interpretation. - External medical records reviewed. Echocardiogram dated 10/11/2020 was reviewed. Patient had an ejection fraction of 55 to 59% at that time. - EKG image obtained at 18:02 interpreted by myself showed ventricular tachycardia. Rate to 44 bpm. - EKG image obtained at 18:17 post cardioversion interpreted by myself showed atrial fibrillation. Rate 74 bpm. QT 378. No acute ischemic changes. Noted to have a right bundle branch block. - Patient did recover from Versed dosing and reports he does feel improved. - Laboratory workup interpreted by myself showed normal WBC; normal PT/INR; stable electrolytes; elevated total bilirubin (1.2) with normal AST/ALT; normal troponin; normal lipase; elevated BNP (110) - CXR image reviewed interpreted by myself was negative for pneumonia, per my interpretation. - CTA chest negative for dissection. - Heparin bolus and drip ordered. - Post cardioversion, patient reports he is now chest pain-free and feels significantly improved. - Discussion was had with patient case coordinator about patient's case and need for admission - Hospitalist consulted for admission - Patient admitted to [facility] service for further evaluation and management. I have personally spent 63 minutes of critical care time in the direct management of this patient. This includes bedside care, interpretation of diagnostic studies, and testing, discussion with consultants, patient, and family members, and other required patient management activities. This 63 minutes is in excess of all separately billable procedures. PROCEDURE: Electrical Synchronized Cardioversion Indication: unstable ventricular tachycardia Emergent consent was implied given the patient's vital sign instability. He did give verbal consent after discussion of the risks and benefits of the procedure were explained, including but not limited to pain, thermal burn, allergic reaction, aspiration, airway obstruction, laryngospasm, infection, hypotension, and cardiorespiratory arrest. At this time, the risks of the procedure are less than the risks of NOT performing the procedure. A time out was taken and the correct patient and procedure identified. Suction, airway equipment, medications, respiratory equipment, ACLS cart, and appropriate personnel were prepared prior to the initiation of the procedure. Patient was given a total of 5 mg of IV Versed for an anxiolytic. The biphasic defibrillator was set to 200 joules of energy and synched. After confirmation of sedation and "all clear" safety check the synchronized shock was delivered. This resulted in successful conversion of the dysrhythmia back into atrial fibrillation. See nursing notes for dosages and times. There were no complications and the patient recovered uneventfully from the procedure. ASSESSMENT AND PLAN: Diagnosis: Ventricular tachycardia; cardioversion; chest pain; new onset A-fib; dizziness Plan: Admit Past Med/Surg History Problem List (Updated 04/03/25 @ 19:43 by Barbara Wright MD) Dizziness (Acute) New onset a-fib (Acute) History of cardioversion (Acute) Chest pain (Acute) Ventricular tachycardia (Acute) H/O bilateral hip replacements Hypertension Prediabetes Dyslipidemia Cervical stenosis of spinal canal Encounter for pre-operative examination History of esophagogastroduodenoscopy (EGD) GERD (gastroesophageal reflux disease) (Chronic) Osteoarthritis (Chronic) Medical History Aortic root aneurysm Nausea and vomiting after administration of anesthetic agent Ocular migraine "a couple times a year" Surgical History History of mandibular surgery (~1984) to repair cartilage tear History of colonoscopy S/P epidural steroid injection Family History Daughter Leukemia Sister Multiple sclerosis Mother Hypertension Other No family history of adverse response to anesthesia Social History Smoking Status: Unknown if ever smoked Second Hand Exposure: No; Do You Dip or Chew Tobacco: No; Hx Alcohol Use: Yes Alcohol type: beer and hard liquor Alcohol Intake Frequency: 2-4 x/Month Hx Substance Use: No Preferred Language: Guinean Communication Ability: Effective Pastor Required: No Beliefs That Will Affect Care: None Current Living Situation: Spouse Feels Safe at Home: Yes Assistive Devices: None Allergies Allergies Allergy/AdvReac Type Severity Reaction Status Date / Time aspirin [From Percodan] Allergy Intermediate Itching Verified 04/03/25 18:44 lisinopril Allergy Mild Cough Verified 04/03/25 18:44 oxycodone Allergy Mild itching Verified 04/03/25 18:44 Home Meds Home Medications Medication Instructions Recorded Confirmed aspirin 81 mg tablet 81 mg PO HS 10/03/20 04/03/25 atorvastatin 20 mg tablet 20 mg PO DAILY 10/03/20 04/03/25 cholecalciferol (vitamin D3) 125 125 mcg PO QAM 10/03/20 04/03/25 mcg (5,000 unit) tablet (Vitamin D3) melatonin 10 mg tablet 10 mg PO HS 10/03/20 04/03/25 metoprolol succinate 25 mg 25 mg PO QA 10/03/20 04/03/25 tablet,extended release 24 hr multivitamin 1 tab PO QA 10/03/20 04/03/25 omeprazole 20 mg capsule,delayed 20 mg PO [facility] 10/03/20 04/03/25 release trazodone 100 mg tablet 100 mg PO HS 10/03/20 04/03/25 fluorouracil 5 % topical cream 1 applic topical BID 04/03/25 04/03/25 losartan 50 mg tablet 50 mg PO HS 04/03/25 04/03/25 montelukast 10 mg tablet 10 mg PO [facility] 04/03/25 04/03/25 Previous Rx's Medication Instructions Recorded meclizine 25 mg tablet 25 mg PO TID PRN dizziness #30 tabs 06/14/22 Results & Data (ED) Vital Signs Vital Signs - 24 hr 04/03/25 17:59 04/03/25 18:01 04/03/25 18:15 Temperature 36.4 C L Temperature Source Oral Pulse Rate 243 H 244 H 76 Respiratory Rate 30 H Blood Pressure 117/83 Blood Pressure Mean 94 Pulse Oximetry 95 Sepsis Recent Fever Within 48 Hours No Sepsis New/Unexplained Change in Mental Status No Sepsis Action Taken by Nursing Physician Notified Laboratory Data 04/03/25 18:05 04/03/25 18:05 Lab Results 04/03/25 04/03/25 04/03/25 Range/Units 18:05 18:10 18:47 WBC 8.58 (4.8-10.8) K/ul RBC 4.88 (4.70-6.10) M/uL Hgb 16.0 (14.0-18.0) g/dL POC Hgb 16.3 (14.0-18.0) g/dl Hct 47.2 (42.0-52.0) % POC Hct 48 (42-52) % MCV 96.7 (80.0-100.0) fL MCH 32.8 (25.0-34.0) pg MCHC 33.9 (32.0-36.0) g/dL RDW Std Deviation 44.8 (36.4-46.3) fL RDW Coeff of Roney 12.5 (11.5-14.5) % Plt Count 253 (130-400) K/uL MPV 10.2 (9.4-12.4) fL Immature Gran % (Auto) 0.3 % Neut % (Auto) 51.0 % Lymph % (Auto) 36.7 % [place] % (Auto) 9.8 % Eos % (Auto) 1.3 % Baso % (Auto) 0.9 % Neut # (Auto) 4.37 (1.40-6.50) K/uL Lymph # (Auto) 3.15 (1.20-3.40) K/uL [place] # (Auto) 0.84 H (0.11-0.59) K/uL Eos # (Auto) 0.11 (0.00-0.50) K/uL Baso # (Auto) 0.08 (0.00-0.20) K/uL Immature Gran # (Auto) 0.03 (0.01-0.20) K/uL PT 10.1 (9.0-12.0) Seconds INR 1.0 (0.9-1.1) POC Sodium 143 (135-144) mmol/L Sodium 140 (136-145) mmol/L POC Potassium 3.7 (3.3-5.0) mmol/L Potassium 3.7 (3.5-5.1) mmol/L POC Chloride 102 (101-112) mmol/L Chloride 104 (98-107) mmol/L Carbon Dioxide 25 (21-32) mmol/L POC Total CO2 23 L (24-31) mmol/L Anion Gap 11 (3-11) POC Anion Gap 23.0 (16-25) mmol/L POC BUN 12 (7-18) mg/dl BUN 12 (6-23) mg/dl Creatinine 1.22 (0.6-1.4) mg/dl POC Creatinine 1.4 H (0.6-1.3) mg/dl Est Cr Clr Drug Dosing 69.8 ml/min eGFR 62.99 BUN/Creatinine Ratio 9.8 L (10-20) Glucose 128 H (70-99(Fasting)) mg/dl POC Glucose (other) 127 H (70-99) mg/dl Calcium 9.3 (8.6-10.3) mg/dl POC Ioniz Calcium Carter 1.10 L (1.12-1.32) mmol/l Magnesium 2.1 (1.7-2.4) mg/dl Total Bilirubin 1.2 H (0.2-1.0) mg/dl AST 34 (13-39) U/L ALT 31 (7-52) U/L Alkaline Phosphatase 81 (34-104) U/L Troponin I High Sens 10.2 (0-20) pg/ml B-Natriuretic Peptide 110 H (0-100) pg/ml Total Protein 7.3 (6.0-8.3) gm/dl Albumin 4.3 (3.4-5.0) gm/dl Globulin 3.0 (2.5-4.0) gm/dl Albumin/Globulin Ratio 1.4 (0.9-2) Lipase 40 (11-82) U/L Administered Medications Amiodarone HCl/Dextrose (Nexterone / D5w) 360 mg in 200 mls @ 33.333 mls/hr IV ONE ONE Stop: 04/04/25 00:28 Last Admin: 04/03/25 18:20 Dose: 1 mg/min, 33.3 mls/hr Documented By: DENNYS Co-signed By: TOD Discontinued Medications Amiodarone HCl/Dextrose (Amiodarone 360mg / 200ml D5w) Confirm Administered Dose 360 mg IV .STK-MED ONE Stop: 04/03/25 18:06 Last Admin: 04/03/25 18:30 Dose: Not Given Documented By: DENNYS Amiodarone HCl/Dextrose (Amiodarone 150mg / 100ml D5w) Confirm Administered Dose 150 mg IV .STK-MED ONE Stop: 04/03/25 18:06 Last Admin: 04/03/25 18:30 Dose: Not Given Documented By: DENNYS Amiodarone HCl (Amiodarone Iv Bolus & Drip) 1 each IV NOW STA; Protocol Stop: 04/03/25 18:20 Last Admin: 04/03/25 18:30 Dose: Not Given Documented By: DENNYS Amiodarone HCl/Dextrose (Nexterone / D5w) 150 mg in 100 mls @ 600 mls/hr IV NOW STA Stop: 04/03/25 18:28 Last Admin: 04/03/25 18:10 Dose: 600 mls/hr Documented By: DENNYS Co-signed By: TOD Ioversol (Optiray 320 125ml) 118 ml IV ONCE ONE Stop: 04/03/25 18:35 Last Admin: 04/03/25 18:40 Dose: 118 ml Documented By: EHSAN Midazolam HCl (Midazolam Hcl 5 Mg/Ml 2ml Vial) Confirm Administered Dose 10 mg .ROUTE .STK-MED ONE Stop: 04/03/25 18:14 Last Admin: 04/03/25 18:30 Dose: Not Given Documented By: DENNYS Midazolam HCl (Midazolam Hcl 5 Mg/Ml 2ml Vial) 5 mg IV NOW STA Stop: 04/03/25 18:20 Last Admin: 04/03/25 18:14 Dose: 5 mg Documented By: DENNYS Miscellaneous (Stat Iv Infusion Titration Per Protocol) 1 each N/A NOW STA Stop: 04/03/25 18:20 Last Admin: 04/03/25 18:19 Dose: Not Given Documented By: DENNYS Imaging Data Radiologist's Impression: Chest CTA 04/03/25 18:19 CT pulmonary angiogram, dissection with IV contrast History: Chest pain COMPARISON: 05/21/2017 TECHNIQUE: CT angiography of the chest was performed without IV contrast followed by IV contrast, including 3D post processing CTA image reconstruction. Dose reduction techniques were achieved by using automatic exposure control and/or adjustment of mA and/or kV according to patient size and/or use of iterative reconstruction technique. FINDINGS: Diagnostic quality: Adequate There is no evidence for pulmonary embolism. No thoracic aortic dissection. Mildly dilated aortic root at the sinuses of Valsalva measuring approximately 4.0 cm. Otherwise no aneurysm. The heart is not enlarged. There is no pericardial effusion. There are no abnormally enlarged hilar or mediastinal lymph nodes. The central tracheobronchial tree is clear. The lungs are clear. Mild bibasilar atelectasis. There is no pleural effusion. Limited visualized upper abdomen. Scattered low-density lesions in the liver favor cysts. No destructive osseous changes are seen. IMPRESSION: No aortic dissection. No other acute findings in the chest. Electronically signed by Norberto Montero 04-03-2025 6:59 PM Discharge Plan Visit Data Chief Complaint: Chest Pain Stated Complaint: CHEST PAIN ED Provider: Barbara Wrigth Discharge Problem: Ventricular tachycardia, Chest pain, History of cardioversion, New onset a-fib, Dizziness Patient Disposition: Admitted As Inpatient Condition: Fair Forms Stand Alone Forms: [facility] Prescriptions Prescriptions: No Action multivitamin Tablet 1 tab PO QAM atorvastatin 20 mg Tablet 20 mg PO DAILY omeprazole 20 mg Capsule,Delayed Release(Dr/Ec) 20 mg PO QAM aspirin 81 mg Tablet 81 mg PO HS metoprolol succinate 25 mg Tablet Extended Release 24 Hr 25 mg PO QAM cholecalciferol (vitamin D3) [Vitamin D3] 125 mcg (5,000 unit) Tablet 125 mcg PO QAM melatonin 10 mg Tablet 10 mg PO HS trazodone 100 mg Tablet 100 mg PO HS meclizine 25 mg tablet 25 mg PO TID PRN (Reason: dizziness) Qty: 30 0RF montelukast 10 mg tablet 10 mg PO QAM losartan 50 mg tablet 50 mg PO HS fluorouracil 5 % cream 1 applic TOPICAL BID Rx Instructions: apply to skin cancer on ear for 2 weeks...keep tube away from pets...keep area out of sun Referrals Referrals: Vinny Montero DO [Primary Care Provider] -
[2025-04-03 18:33] LABS: Hematocrit (blood only) 47.2 % (42.0-52.0); Hemoglobin 16.0 g/dL (14.0-18.0); Immature Granulocytes # (auto) 0.03 K/uL (0.01-0.20); Immature Granulocytes % (auto) 0.3 %; Mean Corpuscular Hemoglobin 32.8 pg (25.0-34.0); Mean Corpuscular Volume 96.7 fL (80.0-100.0); Platelet Count 253 K/uL (130-400); RDW Standard Deviation 44.8 fL (36.4-46.3); Red Blood Count 4.88 M/uL (4.70-6.10); White Blood Count 8.58 K/ul (4.8-10.8)
[2025-04-03] MEDS: OPTIRAY 320 125ml IV ONE (18:40)
[2025-04-03 18:49] LABS: Alanine Aminotransferase 31.0 U/L (7-52); Albumin Level 4.3 gm/dl (3.4-5.0); Alkaline Phosphatase 81.0 U/L (34-104); Anion Gap 11.0 (3-11); Blood Urea Nitrogen 12.0 mg/dl (6-23); Calcium 9.3 mg/dl (8.6-10.3); Carbon Dioxide 25.0 mmol/L (21-32); Chloride 104.0 mmol/L (98-107); Creatinine Clr Calc Pharmacy 69.8 ml/min; Glucose 128.0 mg/dl (70-99(Fasting)); Lipase 40.0 U/L (11-82); Magnesium 2.1 mg/dl (1.7-2.4); Potassium 3.7 mmol/L (3.5-5.1); Sodium 140.0 mmol/L (136-145)
[2025-04-03 18:56] LABS: Bilirubin,Total 1.2 mg/dl (0.2-1.0)
--- NOTE | 2025-04-03 18:59 | CT Scan Report ---
CT pulmonary angiogram, dissection with IV contrast History: Chest pain COMPARISON: 05/21/2017 TECHNIQUE: CT angiography of the chest was performed without IV contrast followed by IV contrast, including 3D post processing CTA image reconstruction. Dose reduction techniques were achieved by using automatic exposure control and/or adjustment of mA and/or kV according to patient size and/or use of iterative reconstruction technique. FINDINGS: Diagnostic quality: Adequate There is no evidence for pulmonary embolism. No thoracic aortic dissection. Mildly dilated aortic root at the sinuses of Valsalva measuring approximately 4.0 cm. Otherwise no aneurysm. The heart is not enlarged. There is no pericardial effusion. There are no abnormally enlarged hilar or mediastinal lymph nodes. The central tracheobronchial tree is clear. The lungs are clear. Mild bibasilar atelectasis. There is no pleural effusion. Limited visualized upper abdomen. Scattered low-density lesions in the liver favor cysts. No destructive osseous changes are seen. IMPRESSION: No aortic dissection. No other acute findings in the chest. Electronically signed by Norberto Montero 04-03-2025 6:59 PM
[2025-04-03 19:06] LABS: Albumin Globulin Ratio 1.4 (0.9-2); Globulin 3.0 gm/dl (2.5-4.0); Total Protein 7.3 gm/dl (6.0-8.3)
[2025-04-03 19:07] LABS: INR 1.0 (0.9-1.1); Prothrombin Time 10.1 Seconds (9.0-12.0)
--- NOTE | 2025-04-03 19:26 | History & Physical Report ---
Date of Service April 03, 2025 Assessment & Plan (1) Ventricular tachycardia: (2) Chest pain: (3) Aortic root aneurysm: (4) Hypertension: (5) Dyslipidemia: Plan This is a 70 yr old M who has a significant PMH of HTN, HLD, pre diabetes, GERD, hx of insomnia, hx of lacunar infarct found on MRI 06/2022 who presents to ED 2/2 Chest pain, lightheaded and sustained HR in 230s-250s with monomorphic vtach. Initial ECG at 18:02 revealed a monomorphic ventricular tachycardia with 244bpms. Pt was becoming hemodynamically unstable and therefore immediate synchronized cardioversion was performed at 200J with successful cardioversion to what appears to be atrial fibrillation 74bpm Echo in September of 2024 revealed LVEF 55-59%, grade 1 diastolic dysfunction, mild TR, mild pulm htn, aortic root enlarged to 4.1cm and thoracic aortic mildly enlarged to 4.1cm. #Sustained Ventricular Tachycardia #Chest pain admit to PCU Pt initiated on IV amiodarone and heparin in ED,will continue NPO after midnight Consult cardiology replace lytes, keep K > 4.0 and Mag > 2.0 #Aortic Root Aneursym follows [facility], stable at 4.1cm #HTN chronic, stable on losartan and metoprolol #Chronic Insomnia takes melatonin, trazodone and nyquil tablet at HS #HLD chronic, stable continue statin DVT ppx: IV heparin FULL CODE PCP: Vinny Montero Dispo: admit to PCU Pt was seen and examined in collaboration with Dr. Suresh, please see addendum I spent a total of 50 minutes coordinating, documenting and providing care for this patient excluding time spent in the performance of separately billed services or time spent by another provider/QHP. History of Present Illness Chief Complaint: Chest pain and lightheaded prior to arrival. Primary Care Provider: Vinny Montero, This is a 70 yr old M who has a significant PMH of HTN, HLD, pre diabetes, GERD, hx of insomnia, hx of lacunar infarct per brain MRI 06/2022 who presents to ED 2/2 chest pain that started shortly prior to pts arrival. Pt was out hunting this evening when he developed a substernal chest pain with associated lightheaded. When he arrived in triage per nursing notes pt looked unwell, in distress and was diaphoretic. He was found to have HR in 240s and tele monitor revealed a wide complex tachycardia. Initially pt was normotensive, but as ED visit progressed his blood pressure was unable to be found with persistent HR in 230s-250s. ED provider administered 5mg of IV versed and performed synchronized cardioversion at 200J with improvements of HR to 60s with rhythm of atrial fibrillation. He was started on IV heparin and IV amiodarone and was recommended for admission. [facility]. Echo in September of 2024 revealed LVEF 55-59%, grade 1 diastolic dysfunction, mild TR, mild pulm htn, aortic root enlarged to 4.1cm and thoracic aortic mildly enlarged to 4.1cm. He does follow with [facility] cardiology due to HTN, RBBB, aortic root aneursym and HLD. Patient was seen in a 1 trauma bay with , son, 2 daughters and granddaughter at bedside. He reports being out hunting this evening whenever he heard what he thought was his grandson shoot his gun. He then turned around to walk back out to find him whenever he developed intense substernal chest pain that was nonradiating. He describes it as a crushing sensation. It was also associated with lightheadedness and dizziness. He sat down on a rock which improved his lightheadedness. He then opted to turn around and walked back to his car which was approximately 60 yards. He then contacted his who met him and brought him to ED. reports that he was sweaty and pale. Patient reports having similar chest pain symptoms, but never experienced it to the point that it did not go away. His symptoms persisted until he was treated in the ED. He reports previous episodes of similar substernal chest pain whenever he would ambulate and hike out in the [place] specifically up hills. As soon as he would get to the top of the hill or take a break it would go away. He denies any prior history of CAD, arrhythmia, atrial fibrillation or cardiac catheterization. He does report that his brother was recently diagnosed with atrial fibrillation. His mother had bradycardia requiring pacemaker placement as well as valve replacement but no history of arrhythmia in mother or father. He denies any tobacco or drug use. He does occasionally drink alcohol. Currently he feels significantly improved since treatment in ED. He currently denies any chest pain, shortness of breath, lightheadedness, dizziness, palpitations, nausea, vomiting or abdominal pain. He denies any recent illness. Allergies Allergy/AdvReac Type Severity Reaction Status Date / Time aspirin [From Percodan] Allergy Intermediate Itching Verified 04/03/25 18:44 lisinopril Allergy Mild Cough Verified 04/03/25 18:44 oxycodone Allergy Mild itching Verified 04/03/25 18:44 Home Medications Medication Instructions Recorded Confirmed Type aspirin 81 mg tablet 81 mg PO HS 10/03/20 04/03/25 History atorvastatin 20 mg tablet 20 mg PO HS 10/03/20 04/03/25 History melatonin 10 mg tablet 10 mg PO HS 10/03/20 04/03/25 History metoprolol succinate 25 mg 25 mg PO [facility] 10/03/20 04/03/25 History tablet,extended release 24 hr multivitamin 1 tab PO QA 10/03/20 04/03/25 History omeprazole 20 mg capsule,delayed 20 mg PO [facility] 10/03/20 04/03/25 History release trazodone 100 mg tablet 100 mg PO HS 10/03/20 04/03/25 History meclizine 25 mg tablet 25 mg PO TID PRN dizziness #30 tabs 06/14/22 04/03/25 Rx cholecalciferol (vitamin D3) 50 50 mcg PO DAILY 04/03/25 04/03/25 History mcg (2,000 unit) tablet fluorouracil 5 % topical cream 1 applic topical BID 04/03/25 04/03/25 History losartan 50 mg tablet 50 mg PO 04/03/25 04/03/25 History montelukast 10 mg tablet 10 mg PO [facility] 04/03/25 04/03/25 History Past Med/Surg History Problem List (Updated 04/03/25 @ 21:54 by Zeus Li) Dizziness (Acute) New onset a-fib (Acute) History of cardioversion (Acute) Chest pain (Acute) Ventricular tachycardia (Acute) H/O bilateral hip replacements Hypertension Prediabetes Dyslipidemia Cervical stenosis of spinal canal Encounter for pre-operative examination History of esophagogastroduodenoscopy (EGD) GERD (gastroesophageal reflux disease) (Chronic) Osteoarthritis (Chronic) Medical History Aortic root aneurysm Nausea and vomiting after administration of anesthetic agent Ocular migraine "a couple times a year" Surgical History History of mandibular surgery (~1984) to repair cartilage tear History of colonoscopy S/P epidural steroid injection Family History Daughter Leukemia Sister Multiple sclerosis Mother Hypertension Other No family history of adverse response to anesthesia Social History Smoking Status: Never smoker Second Hand Exposure: No; Do You Dip or Chew Tobacco: No; Hx Alcohol Use: Yes Alcohol type: hard liquor Alcohol Intake Frequency: 2-4 x/Month Hx Substance Use: No Preferred Language: [place] Communication Ability: Effective 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 Beliefs That Will Affect Care: None Current Living Situation: Spouse Current Living Situation Comment: Lives w/ spouse at home Other Information That Helps Us Care for You: No Feels Safe at Home: Yes Safety Concerns: Feels Safe At This Time Assistive Devices: None Review of Systems Review of Systems: All systems reviewed & are unremarkable except as noted in HPI & below Physical Exam Physical Exam: Constitutional: WD/WN, Tall, nontoxic-appearing,vitals as above, NAD, sitting up in bed, pleasant, conversing easily Head: Normocephalic, Atraumatic Eyes: conjunctivae normal, anicteric sclerae ENMT: external ear and nose normal, oropharynx normal Neck: trachea midline, no thyromegaly normal visual inspection Respiratory: CTAB, no W/R/R, normal inspection, no accessory muscle use Cardiovascular: RRR, no murmur, no edema Chest: normal inspection of chest Abdomen: S, NT, ND, +BS x 4 Musculoskeletal: no cyanosis or clubbing, extremities AROM x 4 Skin: no rashes, warm and dry normal turgor Neurologic: PERRL, EOMI, accommodation nl, no face palsy, no dysarthria CN's II-XI intact bilaterally and moves all extremities Psychiatric: A+Ox3, euthymic affect Results & Data Results & Data Vital Signs (Past 12 Hours) Vital Signs Temp Pulse Resp BP Pulse Ox 04/03/25 18:15 76 04/03/25 18:01 244 H 04/03/25 17:59 36.4 C L 243 H 30 H 117/83 95 Laboratory Results I have independently reviewed and interpreted patient's admitting labs including CBC, CMP,bnp, mag and troponin. Diagnostic Findings Chest CTA 04/03/25 18:19 CT pulmonary angiogram, dissection with IV contrast History: Chest pain COMPARISON: 05/21/2017 TECHNIQUE: CT angiography of the chest was performed without IV contrast followed by IV contrast, including 3D post processing CTA image reconstruction. Dose reduction techniques were achieved by using automatic exposure control and/or adjustment of mA and/or kV according to patient size and/or use of iterative reconstruction technique. FINDINGS: Diagnostic quality: Adequate There is no evidence for pulmonary embolism. No thoracic aortic dissection. Mildly dilated aortic root at the sinuses of Valsalva measuring approximately 4.0 cm. Otherwise no aneurysm. The heart is not enlarged. There is no pericardial effusion. There are no abnormally enlarged hilar or mediastinal lymph nodes. The central tracheobronchial tree is clear. The lungs are clear. Mild bibasilar atelectasis. There is no pleural effusion. Limited visualized upper abdomen. Scattered low-density lesions in the liver favor cysts. No destructive osseous changes are seen. IMPRESSION: No aortic dissection. No other acute findings in the chest. Electronically signed by Norberto Montero 04-03-2025 6:59 PM Medications Administered Medication List Amiodarone HCl/Dextrose (Nexterone / D5w) 360 mg in 200 mls @ 33.333 mls/hr IV ONE ONE Stop: 04/04/25 00:28 Last Admin: 04/03/25 18:20 Dose: 1 mg/min, 33.3 mls/hr Documented By: DENNYS Co-signed By: TOD Discontinued Medications Amiodarone HCl/Dextrose (Amiodarone 360mg / 200ml D5w) Confirm Administered Dose 360 mg IV .STK-MED ONE Stop: 04/03/25 18:06 Last Admin: 04/03/25 18:30 Dose: Not Given Documented By: DENNYS Amiodarone HCl/Dextrose (Amiodarone 150mg / 100ml D5w) Confirm Administered Dose 150 mg IV .STK-MED ONE Stop: 04/03/25 18:06 Last Admin: 04/03/25 18:30 Dose: Not Given Documented By: DENNYS Amiodarone HCl (Amiodarone Iv Bolus & Drip) 1 each IV NOW STA; Protocol Stop: 04/03/25 18:20 Last Admin: 04/03/25 18:30 Dose: Not Given Documented By: DENNYS Amiodarone HCl/Dextrose (Nexterone / D5w) 150 mg in 100 mls @ 600 mls/hr IV NOW STA Stop: 04/03/25 18:28 Last Admin: 04/03/25 18:10 Dose: 600 mls/hr Documented By: DENNYS Co-signed By: TOD Ioversol (Optiray 320 125ml) 118 ml IV ONCE ONE Stop: 04/03/25 18:35 Last Admin: 04/03/25 18:40 Dose: 118 ml Documented By: EHSAN Midazolam HCl (Midazolam Hcl 5 Mg/Ml 2ml Vial) Confirm Administered Dose 10 mg .ROUTE .STK-MED ONE Stop: 04/03/25 18:14 Last Admin: 04/03/25 18:30 Dose: Not Given Documented By: DENNYS Midazolam HCl (Midazolam Hcl 5 Mg/Ml 2ml Vial) 5 mg IV NOW STA Stop: 04/03/25 18:20 Last Admin: 04/03/25 18:14 Dose: 5 mg Documented By: DENNYS Miscellaneous (Stat Iv Infusion Titration Per Protocol) 1 each N/A NOW STA Stop: 04/03/25 18:20 Last Admin: 04/03/25 18:19 Dose: Not Given Documented By: DENNYS ECG Additional Comments: I have independently reviewed and interpreted patient's admitting EKG which revealed: wide complex tachycardia monomorphic @18:02 COVID-19 Results Results COVID-19 Adm Lab Results: RBC 4.88 M/uL (4.70-6.10) 04/03/25 WBC 8.58 K/ul (4.8-10.8) 04/03/25 Hgb 16.0 g/dL (14.0-18.0) 04/03/25 Hct 47.2 % (42.0-52.0) 04/03/25 Plt Count 253 K/uL (130-400) 04/03/25 Neutrophils (%) (Auto) 51.0 % 04/03/25 Lymphocytes (%) (Auto) 36.7 % 04/03/25 Monocytes # (Auto) 0.84 K/uL (0.11-0.59) H 04/03/25 Eosinophils # (Auto) 0.11 K/uL (0.00-0.50) 04/03/25 Immature Granulocyte % (Auto) 0.3 % 04/03/25 Neutrophils # (Auto) 4.37 K/uL (1.40-6.50) 04/03/25 Lymphocytes # (Auto) 3.15 K/uL (1.20-3.40) 04/03/25 Monocytes # (Auto) 0.84 K/uL (0.11-0.59) H 04/03/25 Eosinophils # (Auto) 0.11 K/uL (0.00-0.50) 04/03/25 Basophils # (Auto) 0.08 K/uL (0.00-0.20) 04/03/25 Immature Granulocyte # (Auto) 0.03 K/uL (0.01-0.20) 5 Na 140 mmol/L (136-145) 04/03/25 K 3.7 mmol/L (3.5-5.1) 04/03/25 Cl 104 mmol/L (98-107) 04/03/25 CO2 25 mmol/L (21-32) 04/03/25 Anion Gap 11 (3-11) 04/03/25 BUN 12 mg/dl (6-23) 04/03/25 Creatinine 1.22 mg/dl (0.6-1.4) 04/03/25 BUN/Creatinine Ratio 9.8 (10-20) L 04/03/25 Glucose Level 128 mg/dl (70-99(Fasting)) H 04/03/25 Ca 9.3 mg/dl (8.6-10.3) 04/03/25 Total Bilirubin 1.2 mg/dl (0.2-1.0) H 04/03/25 AST/SGOT 34 U/L (13-39) 04/03/25 ALT/SGPT 31 U/L (7-52) 04/03/25 Alkaline Phosphatase 81 U/L (34-104) 04/03/25 Total Protein 7.3 gm/dl (6.0-8.3) 04/03/25 Albumin 4.3 gm/dl (3.4-5.0) 04/03/25 Globulin 3.0 gm/dl (2.5-4.0) 04/03/25 Albumin/Globulin Ratio 1.4 (0.9-2) 04/03/25 PTT 26 Seconds (21-31) 04/03/25 INR 1.0 (0.9-1.1) 04/03/25 Chest X-Ray 04/03/25 Code Status & VTE Plan Code Status FULL CODE Supervising Physician Co-Signing Physician Notes IM ATTENDING : Patient seen and examined. History obtained from patient and records. Concur with salient points upon review of preceding documentation by Ms. Azucena Pate PA-C. I take responsibility for plan of care below. FINAL ASSESSMENT AND PLAN as follows : Ventricular tachycardia status post cardioversion A-fib rhythm noted post cardioversion, new onset Chest pain secondary to ventricular arrhythmia rule out ACS Hypertension, stable Hyperlipidemia on statin Rx Mild TR Aortic root aneurysm/proximal ascending thoracic aorta enlargement Pulmonary hypertension as per records History of CVA Prediabetes, hemoglobin A1c of 5.7 from May, GERD on PPI Admit to PCU Continue amiodarone drip for VT Continue IV heparin for thromboembolic prophylaxis for A-fib and for possible ACS Aspirin, beta-john, statin Rx for possible ACS TTE, cardiology consult re: VT, new onset AF, chest pain N.p.o. after midnight in anticipation of ischemic workup DVT prophylaxis. IV heparin Full code Patient requesting updates providers. Ms. Leeanne Sanford, contact #[phone]. I spent a total of 30 minutes coordinating, documenting, and providing care for this patientexcludingtime spent by another provider/QHP. Text document was generated using [employer] voice recognition software. It may contain grammatical or spelling errors. Kindly contact undersigned for clarification of any documentation item in question. (4) Hypertension Hypertension type: essential hypertension Qualified Code(s): I10 - Essential (primary) hypertension
[2025-04-03] MEDS: HEPARIN SOD (PORCINE) 1000 UNIT/ML IV ONE (19:47)
[2025-04-03] MEDS: HEPARIN 25000 UNIT/500 ML D5W 25,000 UNITS/500 ML BAG IV SCH (19:49)
[2025-04-03 19:50] LABS: Partial Thromboplastin Time 26 Seconds (21-31)
[2025-04-03] MEDS: Heparin IV Adult Wt-Based Low-Dose w/ INITIAL Bolus Protocol IV STA (19:55)
[2025-04-03] MEDS: POTASSIUM CHLORIDE CRTAB 20 MEQ TABCR PO STA (20:00)
--- NOTE | 2025-04-03 20:04 | XRay Report ---
Chest radiograph, one view History: Chest pain Comparison: None Findings: Single AP view of the chest performed. No focal consolidation or pleural effusion. No pneumothorax. The cardiomediastinal silhouette is within normal limits. Normal pulmonary vascularity. No evidence for lymphadenopathy. No visualized bony or soft tissue abnormality. Impression: Normal chest radiograph Electronically signed by Norberto Montero 04-03-2025 7:53 PM
[2025-04-03] MEDS ORDERED: NITROGLYCERIN SL 0.4 MG/TAB TAB SL PRN (20:50)
[2025-04-03] MEDS ORDERED: PROMETHAZINE 6.25 MG/50.25 ML BAG IV PRN (20:50)
[2025-04-03] MEDS ORDERED: MoRPHine SULFATE 4 MG/ML 1 ML CARP\\VIAL IV PRN (20:51)
[2025-04-03] MEDS ORDERED: HYDROCODONE/ACETAMOPHEN 5/325MG TAB PO PRN (20:51)
[2025-04-03] MEDS ORDERED: MELATONIN 3 MG TAB PO PRN (21:21)
[2025-04-03] MEDS: LOSARTAN POTASSIUM 50 MG TAB PO SCH (22:20)
[2025-04-03 22:33] LABS: Appearance Urine Clear (Clear); Bacteria Urine Automated None Seen (None Seen); Cast Urine Automated 0-2 /lpf (0-2); Epithelial Cell Urine Auto 0-2 /hpf (0-2); Glucose Urine UA Negative (Negative); RBC Urine Automated 0-2 /hpf (0-2); WBC Urine Automated 0-5 /hpf (0-5)
[2025-04-03] MEDS: POTASSIUM CHLORIDE 20 MEQ in LACTATED RINGER'S 1,000 ML IV ONE (22:34)
[2025-04-03] MEDS: ASPIRIN 81 MG ECTAB PO SCH (23:08)
[2025-04-03] MEDS: ATORVASTATIN 20 MG TAB PO SCH (23:09)
[2025-04-04] MEDS ORDERED: AMIODARONE / D5W 360 MG/200 ML BAG IV SCH (00:30)
[2025-04-04 02:39] LABS: ANTI-Xa, UFH(UnfractionatedHep 0.33 IU/ml (0.3-0.7)
[2025-04-04] MEDS ORDERED: ATROPINE SULFATE 0.1 MG/ML 10ML SYR IV PRN (02:40)
--- NOTE | 2025-04-04 02:41 | Communication Note ---
Date of Service: April 04, [id number] Patient heart rate 50s upon arrival at PCU as per RN. Patient comfortable. Hold amiodarone infusion for now A Patient heart rate 40 to 50s with junctional beats on printed EKG strip as per RN. Patient sleeping as per RN. Hold a.m. beta-john for now until patient seen by Cardiology.
[2025-04-04 05:58] LABS: Hematocrit (blood only) 39.8 % (42.0-52.0); Hemoglobin 13.9 g/dL (14.0-18.0); Immature Granulocytes # (auto) 0.03 K/uL (0.01-0.20); Immature Granulocytes % (auto) 0.4 %; Mean Corpuscular Hemoglobin 33.3 pg (25.0-34.0); Mean Corpuscular Volume 95.4 fL (80.0-100.0); Platelet Count 178 K/uL (130-400); RDW Standard Deviation 44.3 fL (36.4-46.3); Red Blood Count 4.17 M/uL (4.70-6.10); White Blood Count 7.35 K/ul (4.8-10.8)
[2025-04-04 06:12] LABS: Anion Gap 6.0 (3-11); Blood Urea Nitrogen 11.0 mg/dl (6-23); Calcium 8.5 mg/dl (8.6-10.3); Carbon Dioxide 27.0 mmol/L (21-32); Chloride 108.0 mmol/L (98-107); Creatinine Clr Calc Pharmacy 89.6 ml/min; Glucose 107.0 mg/dl (70-99(Fasting)); Potassium 4.3 mmol/L (3.5-5.1); Sodium 141.0 mmol/L (136-145)
[2025-04-04 06:30] LABS: Thyroid Stimulating Hormone 2.165 uIu/ml (0.300-4.500)
--- NOTE | 2025-04-04 08:41 | XCELERA ---
[id number] \\[id number]
[2025-04-04] MEDS ORDERED: METOPROLOL SUCC 25MG EXT REL TAB PO SCH (09:00)
[2025-04-04] MEDS: MULTIVITAMIN TAB PO SCH (09:03)
[2025-04-04] MEDS: MONTELUKAST SODIUM 10 MG TABLET PO SCH (09:03)
[2025-04-04 09:17] LABS: ANTI-Xa, UFH(UnfractionatedHep 0.27 IU/ml (0.3-0.7)
--- NOTE | 2025-04-04 09:40 | Cardiology Consultation ---
Date of Consultation April 04, 2025 Assessment & Plan (1) Ventricular tachycardia: (2) Non-ST elevation (NSTEMI) myocardial infarction: (3) Coronary artery calcification: (4) Hypertension: Plan 70-year-old male admitted with NSTEMI and sustained ventricular tachycardia requ iring external direct-current cardioversion. Echocardiogram demonstrating preserved LV systolic function. Amiodarone and metoprolol placed on hold overnight due to bradycardia. Risk, benefit, alternative to cardiac catheterization discussed. Patient agreeable to proceed. IV heparin only placed on hold prior to procedure. IV amiodarone and metoprolol placed on hold due to bradycardia overnight. Continue aspirin, atorvastatin and losartan. Further recommendations and electrophysiology consultation pending results of cardiac catheterization. Tej Huggins DO, [facility] I spent a total of 80 minutes on the date of service in preparation, delivery, and documentation of the care provided to this patient, excluding any time spent in the performance of separately billed services. History of Present Illness Reason for Consultation: Chest pain, ventricular tachycardia, atrial fibrillation Requesting Physician: Dr. Suresh Attending Physician: Gualberto Boswell DO History of Present Illness 70-year-old male presented to the emergency department with chest pain and ventricular tachycardia. Patient has been hunting throughout the day. He shot a deer in the evening and climbed down from his tree stand. When he attempted to walk to his truck, he became short of breath and extremely weak. Notes his significant substernal, epigastric chest tightness. He was able to walk approximately 10 feet and then needed to sit down and rest. No palpitations, lightheadedness, dizziness, syncope or near or near syncope. Eventually he was able to contact his family who brought him to the ER. When he arrived in the emergency department he felt extremely weak and faint. ECG confirming ventricular tachycardia with heart rate of 230 bpm. An external direct-current cardioversion was performed with conversion to sinus rhythm and sinus bradycardia. IV amiodarone was initiated overnight however discontinued secondary to bradycardia. Postconversion ECG demonstrates sinus rhythm with PACs. I do not see evidence of atrial fibrillation per ECG. This morning, he is feeling much better from a cardiovascular perspective. Denies any chest pain or shortness of breath at rest. Notes history of exertional chest discomfort dating back several years. Primarily notes symptoms when climbing steep hills at a higher pace. Symptoms have consistently been relieved with rest until his episode yesterday. Denies personal history of coronary disease, congestive heart failure, or rheumatic fever as a child. Reports low resting heart rate through much of his adult life. 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 Cardiac history includes hypertension and mild aortic root enlargement. Prior ZIO monitor demonstrating occasional PVCs with a 1.8% burden. CTA of the chest on admission negative for pulmonary embolus or dissection. LAD calcifications noted. High-sensitivity troponin peaking at 961, trending downward to 764 this morning. Allergies Allergy/AdvReac Type Severity Reaction Status Date / Time aspirin [From Percodan] Allergy Intermediate Itching Verified 04/03/25 18:44 lisinopril Allergy Mild Cough Verified 04/03/25 18:44 oxycodone Allergy Mild itching Verified 04/03/25 18:44 Home Medications Medication Instructions Recorded Confirmed Type aspirin 81 mg tablet 81 mg PO HS 10/03/20 04/03/25 History atorvastatin 20 mg tablet 20 mg PO HS 10/03/20 04/03/25 History melatonin 10 mg tablet 10 mg PO HS 10/03/20 04/03/25 History metoprolol succinate 25 mg 25 mg PO QAM 10/03/20 04/03/25 History tablet,extended release 24 hr multivitamin 1 tab PO QAM 10/03/20 04/03/25 History omeprazole 20 mg capsule,delayed 20 mg PO QAM 10/03/20 04/03/25 History release trazodone 100 mg tablet 100 mg PO HS 10/03/20 04/03/25 History meclizine 25 mg tablet 25 mg PO TID PRN dizziness #30 tabs 06/14/22 04/03/25 Rx cholecalciferol (vitamin D3) 50 50 mcg PO DAILY 04/03/25 04/03/25 History mcg (2,000 unit) tablet fluorouracil 5 % topical cream 1 applic topical BID 04/03/25 04/03/25 History losartan 50 mg tablet 50 mg PO HS 04/03/25 04/03/25 History montelukast 10 mg tablet 10 mg PO QAM 04/03/25 04/03/25 History Patient History Medical History Aortic root aneurysm Nausea and vomiting after administration of anesthetic agent Ocular migraine "a couple times a year" Surgical History History of mandibular surgery (~1984) to repair cartilage tear History of colonoscopy S/P epidural steroid injection Family History Daughter Leukemia Sister Multiple sclerosis Mother Hypertension Other No family history of adverse response to anesthesia Social History Smoking Status: Never smoker Second Hand Exposure: No; Do You Dip or Chew Tobacco: No; Hx Alcohol Use: Yes Alcohol type: hard liquor Alcohol Intake Frequency: 2-4 x/Month Hx Substance Use: No Preferred Language: Nicaraguan Communication Ability: Effective Bobbin Dumper Required: No Beliefs That Will Affect Care: None Current Living Situation: Spouse Current Living Situation Comment: Lives w/ spouse at home Other Information That Helps Us Care for You: No Feels Safe at Home: Yes Safety Concerns: Feels Safe At This Time Assistive Devices: None Review of Systems Review of Systems: All systems reviewed & are unremarkable except as noted in Subjective Physical Exam Constitutional: well nourished; no acute distress Respiratory: no respiratory distress and no labored breathing Auscultation: no crackles, no rales, no rhonchi and no wheezes Cardiovascular: Rate/Rhythm: regular rate and regular rhythm Heart Sounds: normal S1 and normal S2; no murmur Vessels: femoral pulses present and radial pulses present; no JVD and no carotid bruit Extremities: no edema Gastrointestinal (Abdomen): Inspection/Auscultation: abdomen normal to inspection; abdomen not distended Percussion/Palpation: abdomen soft; abdomen nontender, no guarding and abdomen not rigid Neurologic: CN's II-XI intact bilaterally and moves all extremities; no focal motor deficits Results & Data Vital Signs (Past 12 Hours) Vital Signs Temp Pulse Pulse Resp BP BP Pulse Ox 04/04/25 07:25 54 L 04/04/25 07:16 36.7 C 55 L 19 167/93 H 95 04/04/25 02:50 36.6 C 53 L 18 157/95 H 94 04/04/25 01:57 150/98 H 04/03/25 23:37 154/108 H 149/100 H 04/03/25 23:11 36.5 C 56 L 18 173/109 H 94 04/03/25 22:24 55 L 04/03/25 21:54 36.6 C 52 L 14 134/93 94 04/03/25 21:54 Pulse Ox O2 Del Method O2 Del Method 04/04/25 07:25 04/04/25 07:16 Room Air 04/04/25 02:50 Room Air 04/04/25 01:57 04/03/25 23:37 04/03/25 23:11 Room Air 04/03/25 22:24 04/03/25 21:54 Room Air 04/03/25 21:54 94 Room Air Laboratory Results Cardiac Enzymes 04/03/25 04/03/25 04/04/25 Range/Units 18:05 18:47 05:43 AST 34 (13-39) U/L Troponin I High Sens 10.2 961.7 H* D (0-20) pg/ml B-Natriuretic Peptide 110 H (0-100) pg/ml 04/04/25 Range/Units 08:26 AST (13-39) U/L Troponin I High Sens 764.0 H* D (0-20) pg/ml B-Natriuretic Peptide (0-100) pg/ml Coagulation 04/03/25 04/03/25 Range/Units 18:05 18:47 PT 10.1 (9.0-12.0) Seconds APTT 26 (21-31) Seconds B-Natriuretic Peptide 110 H (0-100) pg/ml CBC 04/03/25 04/04/25 Range/Units 18:05 05:43 WBC 8.58 7.35 (4.8-10.8) K/ul RBC 4.88 4.17 L (4.70-6.10) M/uL Hgb 16.0 13.9 L (14.0-18.0) g/dL Hct 47.2 39.8 L (42.0-52.0) % Plt Count 253 178 (130-400) K/uL Neut # (Auto) 4.37 4.82 (1.40-6.50) K/uL Lymph # (Auto) 3.15 1.87 (1.20-3.40) K/uL [place] # (Auto) 0.84 H 0.52 (0.11-0.59) K/uL Eos # (Auto) 0.11 0.07 (0.00-0.50) K/uL Baso # (Auto) 0.08 0.04 (0.00-0.20) K/uL Comprehensive Metabolic Panel 04/03/25 04/04/25 Range/Units 18:05 05:43 Sodium 140 141 (136-145) mmol/L Potassium 3.7 4.3 (3.5-5.1) mmol/L Chloride 104 108 H (98-107) mmol/L Carbon Dioxide 25 27 (21-32) mmol/L BUN 12 11 (6-23) mg/dl Creatinine 1.22 0.96 (0.6-1.4) mg/dl Glucose 128 H 107 H (70-99(Fasting)) mg/dl Calcium 9.3 8.5 L (8.6-10.3) mg/dl AST 34 (13-39) U/L ALT 31 (7-52) U/L Alkaline Phosphatase 81 (34-104) U/L Total Protein 7.3 (6.0-8.3) gm/dl Albumin 4.3 (3.4-5.0) gm/dl Intake and Output 04/03/25 04/04/25 04/04/25 22:59 06:59 14:59 Intake Total 219.325 / 442.325 223.000 / 442.325 Output Total 425 / 425 Balance -205.675 / 17.325 223.000 / 17.325 Intake: IV 219.325 / 442.325 223.000 / 442.325 Amiodarone / D5w 150 mg In 100 100 / 100 ml @ 600 mls/hr IV NOW STA Rx#: [id number] Amiodarone / D5w 360 mg In 200 0 / 0 ml @ 1 MG/MIN 33.333 mls/hr IV ONE ONE Rx#:[id number] Heparin 13463 Unit/500 ml D5w 223.000 / 223.000 25,000 units In 500 ml @ 1,000 UNITS/HR 20 mls/hr IV .Q24H FAISAL Rx#:[id number] Output: Urine 425 / 425 Other: Other Intake Source NPO Weight 109.1 kg 107.8 kg Weight Measurement Method [facility] Care Time/CCT Total # of Minutes Spent Total Time Spent with Patient: Total time spent is greater than 50% in coordination of care (as documented) at patient's floor/unit and/or counseling patient: Coding Level of Care Code 20876 INT INP/OBS CARE 3/75MIN Diagnoses Ventricular tachycardia I47.20 Non-ST elevation (NSTEMI) myocardial infarction I21.4 Coronary artery calcification I25.10 Essential hypertension I10 Hypertension type: essential hypertension (4) Hypertension Hypertension type: essential hypertension Qualified Code(s): I10 - Essential (primary) hypertension
--- NOTE | 2025-04-04 10:10 | Electrocardiogram Report ---
Test Reason : Blood Pressure : */* mmHG Vent. Rate : 244 BPM Atrial Rate : * BPM P-R Int : * ms QRS Dur : 162 ms QT Int : 232 ms P-R-T Axes : * 244 154 degrees QTcB Int : 467 ms Wide QRS tachycardia Non-specific intra-ventricular conduction block Abnormal ECG When compared with ECG of 14-Jun-2022 08:49, Significant changes have occurred Confirmed by Timbo Dao ([id number]) on 04/04/2025 10:09:32 AM Referred By: REFERRED SELF Confirmed By: Timbo Dao
--- NOTE | 2025-04-04 11:13 | Pre Anesthesia Assessment ---
Date of Service April 04, 2025 Pre Sedation Assessment Vital Signs Temp Pulse Pulse Resp BP BP BP 04/04/25 10:46 60 14 182/105 H 04/04/25 07:25 54 L 04/04/25 07:16 36.7 C 55 L 19 167/93 H 04/04/25 02:50 36.6 C 53 L 18 157/95 H 04/04/25 01:57 150/98 H 04/03/25 23:37 154/108 H 149/100 H 04/03/25 23:11 36.5 C 56 L 18 173/109 H 04/03/25 22:24 55 L 04/03/25 21:54 36.6 C 52 L 14 134/93 04/03/25 21:54 04/03/25 21:17 04/03/25 19:59 63 16 125/93 04/03/25 19:56 64 16 04/03/25 18:15 76 04/03/25 18:01 244 H 04/03/25 17:59 36.4 C L 243 H 30 H 117/83 Pulse Ox Pulse Ox O2 Del Method O2 Del Method 04/04/25 10:46 93 Room Air 04/04/25 07:25 04/04/25 07:16 95 Room Air 04/04/25 02:50 94 Room Air 04/04/25 01:57 04/03/25 23:37 04/03/25 23:11 94 Room Air 04/03/25 22:24 04/03/25 21:54 94 Room Air 04/03/25 21:54 94 Room Air 04/03/25 21:17 Room Air 04/03/25 19:59 97 Room Air 04/03/25 19:56 97 Room Air 04/03/25 18:15 04/03/25 18:01 04/03/25 17:59 95 Cardiovascular + regular rate and + regular rhythm + S1 normal and + S2 normal; no murmur + femoral pulses present and + radial pulses present no edema Respiratory no respiratory distress and no labored breathing no crackles, no rales, no rhonchi and no wheezes Pre-Sedation Airway Assessment Smoking Status: Never smoker Hx Sleep Apnea: No Short, Thick Neck: No Thyromental Distance: > or= 3.5 Finger Breadths Oral Cavity: + WNL Mallampati Class: III ASA: ASA2 NPO Status Date of Last Intake of Fluids: 04/03/25 Time of Last Intake of Fluids: 21:00 Date of Last Intake of Solid Food: 04/03/25 Time of Last Intake of Solid Foods: 21:00 Procedure Planning Contraindications for Sedation: none Current Medications Reviewed: Yes Notes The planned sedation has been discussed with the patient. Informed Consent was obtained. I have identified the patient, determined the appropriateness of sedation and have assessed the patient immediately prior to the procedure. All medicine(s) and interventions are by my order.
--- NOTE | 2025-04-04 11:32 | Hospitalist Progress Note ---
Date of Service April 04, 2025 Assessment & Plan (1) Non-ST elevation (NSTEMI) myocardial infarction: (2) Paroxysmal ventricular tachycardia: Plan: Status post cardioversion in ED (3) Coronary artery calcification: (4) Hypertension: (5) Dyslipidemia: Plan Patient 70-year-old gentleman presented with ventricular tachycardia that required cardioversion in the ED. Subsequently patient has been bradycardic after being bolused with amiodarone. Reviewed cardiology consultation, planning cardiac catheterization today. Further medical management based on cardiac cath findings Continue other medical regimen Monitor electrolytes and renal function Admission and Anticipated Discharge Date Admission Date: April 03, 2025 Subjective Patient denies any further chest pains. No shortness of breath. Physical Exam Physical Exam: Constitutional: Alert, nontoxic HEENT: Mucous membranes moist. Lungs: Clear to auscultation, decreased, no wheezes rales or rhonchi CV: S1-S2, regular, no significant murmurs Abdomen: Soft, nontender, nondistended Extremities: No significant edema Neuro: No focal deficits Psych: Cooperative, normal mood Results & Data Results & Data Vital Signs (Past 12 Hours) Vital Signs Temp Pulse Pulse Resp BP BP Pulse Ox 04/04/25 10:46 60 14 182/105 H 93 04/04/25 07:25 54 L 04/04/25 07:16 36.7 C 55 L 19 167/93 H 95 04/04/25 02:50 36.6 C 53 L 18 157/95 H 94 04/04/25 01:57 150/98 H 04/03/25 23:37 154/108 H 149/100 H O2 Del Method 04/04/25 10:46 Room Air 04/04/25 07:25 04/04/25 07:16 Room Air 04/04/25 02:50 Room Air 04/04/25 01:57 04/03/25 23:37 Diagnostic Findings Reviewed imaging, laboratory and diagnostic studies. Pertinent findings as below. Telemetry with 8 beat run of V. tach CBC stable Potassium 4.3 Creatinine 0.96 Troponin [id number] Lyme negative (4) Hypertension Hypertension type: essential hypertension Qualified Code(s): I10 - Essential (primary) hypertension
--- NOTE | 2025-04-04 12:49 | Post Anesthesia Assessment ---
Date of Service April 04, 2025 Post Sedation Assessment Vital Signs Temp Pulse Pulse Resp BP BP BP 04/04/25 10:46 60 14 182/105 H 04/04/25 07:25 54 L 04/04/25 07:16 36.7 C 55 L 19 167/93 H 04/04/25 02:50 36.6 C 53 L 18 157/95 H 04/04/25 01:57 150/98 H 04/03/25 23:37 154/108 H 149/100 H 04/03/25 23:11 36.5 C 56 L 18 173/109 H 04/03/25 22:24 55 L 04/03/25 21:54 36.6 C 52 L 14 134/93 04/03/25 21:54 04/03/25 21:17 04/03/25 19:59 63 16 125/93 04/03/25 19:56 64 16 04/03/25 18:15 76 04/03/25 18:01 244 H 04/03/25 17:59 36.4 C L 243 H 30 H 117/83 Pulse Ox Pulse Ox O2 Del Method O2 Del Method 04/04/25 10:46 93 Room Air 04/04/25 07:25 04/04/25 07:16 95 Room Air 04/04/25 02:50 94 Room Air 04/04/25 01:57 04/03/25 23:37 04/03/25 23:11 94 Room Air 04/03/25 22:24 04/03/25 21:54 94 Room Air 04/03/25 21:54 94 Room Air 04/03/25 21:17 Room Air 04/03/25 19:59 97 Room Air 04/03/25 19:56 97 Room Air 04/03/25 18:15 04/03/25 18:01 04/03/25 17:59 95 Recovery Score Activity: Moves 4 extremities Respiration: Deep Breath/Cough Circulation: +/-20% PreAnes Value Consciousness: Arouseable (by name) Oxygen Saturation: > 92% On Room Air Discharge Sedation Level of Care: Phase I Post Sedation Plan On clinical assessment, the patient appears to have tolerated the sedation without complications. Patient is recovering as anticipated. Patient will continue to be monitored by nursing and may be discharged when sedation discharge criteria are met per below protocol. Upon Completions of procedure up to 15 minutes continue every 5 minute vital signs and the P.A.R. score; then discharge to a Phase I or Fast Track to Phase II per the following guidelines: * Discharge Patient to appropriate Phase II area if PAR is 8 or greater or return to pre- procedure baseline. The post - procedure orders will be as directed. * If PAR score is less than 8 or not return to pre-procedure baseline then patient will follow Phase I monitoring till PAR is reached for Phase II. The Phase I may be done in procedure room or may call to secure a Phase I area. * If naloxone or flumazenil are used for reversal, hold in Phase I for continued monitoring from when last reversal dose was given for a minimum of 60 minutes or longer pending the nurse and/or physician discretion of patient condition before discharge to Phase II. Please call the Sedation Physician to re-evaluate and complete post-note for discharge to Phase II area. Do NOT discharge from procedure sedation or Phase 1 until post- sedation evaluation note is complete by procedure /sedation MD Sedation Discharge Instructions to be given to the patient at discharge to home.
--- NOTE | 2025-04-04 13:01 | Cardiac Catheterization ---
[facility] Data: Building Operator Cardiac Status Clinical evaluation leading to the procedure NSTEMI Sustained ventricular tachycardia s/p cardioversion CAD Presenation: Non STEMI (sustained VT) Heart Failure: No Coronary Anatomy Dominant: Co-Dominant Left Main (% Stenosis): Normal LAD (% Stenosis): Proximal (20%, moderate calcification) and Mid (50%) D1 (% Stenosis): Normal Circumflex (% Stenosis): Mid (20%) OM1 (% Stenosis): Normal L PL1 (% Stenosis): Normal L PL2 (% Stenosis): Normal L PDA (% Stenosis): Normal RCA (% Stenosis): Proximal (30% late proximal) and Distal (20%) R PDA (% Stenosis): Normal Ramus (% Stenosis): Normal Diagnostic Physicians Name: Tej Huggins DO Closure Device Percutaneous Entry Location: Radial Closure Device: Radial Band Recommendations: Management Recommendatons (Functional assessment (FFR / IVUS) mid LAD. ) Intraprocedure Events Significant Disection: No Perforation: No Cardiac Cath Procedure Full Procedure Date April 04, 2025 Pre-Procedure Diagnosis Pre-Procedure Diagnosis: Non STEMI and Arrhythmia (sustained ventricular tachycardia s/p cardioversion) AUC Score AUC Score: 8 Post-Procedure Diagnosis Post-Procedure Diagnosis: Moderate CAD (50% mid LAD) and Normal Intracardiac Pressures Procedure(s) Performed Procedure(s) Performed: Coronary Angiography and Left Heart Cath Catering Truck Driver Tej Huggins DO Baby Doctor(s) Josue Haskins RTR Estimated Blood Loss Estimated Blood Loss: 5cc Medication(s) Medication(s): Fentanyl, Heparin, Lidocaine 1%, Nicardipine, Nitroglycerin and Versed Summary of Findings 50% mid LAD Hemodynamics Rest Ao:: 130/85/106 Final Ao: 142/79/109 LV: 153/4/12 Recommendations Recommendations: Management Recommendatons (Functional assessment (FFR / IVUS) mid LAD. ) Radiation Exposure (mGy) 1690 Contrast (mls) 105 Fluids (cc crystalloids) Fluids (cc crystalloids): 20cc NSS Drains Drains: N/A Anesthesia Moderate sedation. Start 1212. End 1241. Sedation monitor: Lillian HOLDEN Procedural Complication(s) None Disposition Patient remained in Building Operator for functional assessment I attest to the content of the Intraoperative Record and any orders documented therein. Any exceptions are noted below. [facility] Card Cath Procedure Codes Cardiac Catheterization Procedure 1: Cardiovascular Cath Procedures: 42563 Coronaries and LHC (+/-LV) Moderate Sedation Procedure 1: Sedation/Anesthesia: 18156 Mod Sedation by the same physician;Init15 Min Child Age 5 & Up Procedure 2: Sedation/Anesthesia: 71203 Mod Sedation by the same physician; Ea [id number] Minutes PG Care Time/CCT Total # of Minutes Spent Total Time Spent with Patient: Total time spent is greater than 50% in coordination of care (as documented) at patient's floor/unit and/or counseling patient:
[2025-04-04] MEDS: HEPARIN (PORCINE) 1000 UNIT/ML 10 ML (CATH LAB USE ONLY) ONE (13:02)
[2025-04-04] MEDS: OPTIRAY 350 ONE (13:02)
[2025-04-04] MEDS: niCARdipine 2,000 MCG/20 ML SYR ONE (13:03)
[2025-04-04] MEDS: NITROGLYCERIN/D5W 100MCG/ML 20ML SYR ONE (13:03)
[2025-04-04] MEDS: MIDAZOLAM HCL 1 MG/ML 2ML VIAL ONE ×2 (13:03)
--- NOTE | 2025-04-04 13:15 | Post Anesthesia Assessment ---
Date of Service April 04, 2025 Post Sedation Assessment Vital Signs Temp Pulse Pulse Resp BP BP BP 04/04/25 10:46 60 14 182/105 H 04/04/25 07:25 54 L 04/04/25 07:16 98.1 F 55 L 19 167/93 H 04/04/25 02:50 97.9 F 53 L 18 157/95 H 04/04/25 01:57 150/98 H 04/03/25 23:37 154/108 H 149/100 H 04/03/25 23:11 97.7 F 56 L 18 173/109 H 04/03/25 22:24 55 L 04/03/25 21:54 97.9 F 52 L 14 134/93 04/03/25 21:54 04/03/25 21:17 04/03/25 19:59 63 16 125/93 04/03/25 19:56 64 16 04/03/25 18:15 76 04/03/25 18:01 244 H 04/03/25 17:59 97.5 F L 243 H 30 H 117/83 Pulse Ox Pulse Ox O2 Del Method O2 Del Method 04/04/25 10:46 93 Room Air 04/04/25 07:25 04/04/25 07:16 95 Room Air 04/04/25 02:50 94 Room Air 04/04/25 01:57 04/03/25 23:37 04/03/25 23:11 94 Room Air 04/03/25 22:24 04/03/25 21:54 94 Room Air 04/03/25 21:54 94 Room Air 04/03/25 21:17 Room Air 04/03/25 19:59 97 Room Air 04/03/25 19:56 97 Room Air 04/03/25 18:15 04/03/25 18:01 04/03/25 17:59 95 Recovery Score Activity: Moves 4 extremities Respiration: Deep Breath/Cough Circulation: +/-20% PreAnes Value Consciousness: Fully Awake Oxygen Saturation: > 92% On Room Air Discharge Sedation Level of Care: Fast Track Phase II
--- NOTE | 2025-04-04 13:26 | Cardiac Catheterization ---
[facility] Data: Wheel Press Clerk Cardiac Status Clinical evaluation leading to the procedure CAD Presenation: Non STEMI Diagnostic Physicians Name: Norberto Barnes MD Closure Device Recommendations: Medical Therapy and/or Counseling Cardiac Cath Procedure Full Procedure Date April 04, 2025 Pre-Procedure Diagnosis Pre-Procedure Diagnosis: Non STEMI and Arrhythmia AUC Score AUC Score: 8 Post-Procedure Diagnosis Post-Procedure Diagnosis: Moderate CAD (50% mid LAD) Procedure(s) Performed Procedure(s) Performed: Coronary Angiography and Fractional Flow [place] Tru[employer] Pinion And Wheel Norberto Barnes MD High School Teacher(s) Josue RTR Estimated Blood Loss Estimated Blood Loss: 15 Medication(s) Medication(s): Fentanyl, Heparin, Nicardipine, Nitroglycerin and Versed Summary of Findings iFR of LAD For full details of patient's coronary angiography please see cath report dictat ed by Dr. Huggins. Briefly, patient found to have a intermediate mid LAD stenosis. Decision to proceed with IFR. Procedure: Left main cannulated with EBU 3.5 guide guide [place] blue wire placed into distal LAD ACIST Catheter placed across stenosis Pd/Pa 0.97 Coronary angiography revealed no apparent complications post wire/catheter removal Summary: 1. Nonobstructive moderate mid LAD stenosis (Pd/Pa 0.97). Recommendations: Continued ASCVD risk factor modification and arrhythmia management per Dr. Huggins. Hemodynamics Rest Ao:: 130/85/106 Final Ao: 154/86/113 LV: 142/15 Recommendations Recommendations: Medical Therapy and/or Counseling Radiation Exposure (mGy) 2269 Contrast (mls) 135 Drains Drains: N/A Anesthesia Moderate sedation. Start 1241. End 1303. Sedation monitor: Procedural Complication(s) None Disposition PCU I attest to the content of the Intraoperative Record and any orders documented therein. Any exceptions are noted below. [facility] Card Cath Procedure Codes Cardiac Catheterization Procedure 1: Cardiovascular Cath Procedures: 92101 (Doppler) Pressure Wire Moderate Sedation Procedure 1: Sedation/Anesthesia: 75673 Mod Sedation by the same physician; Ea Additi onal15 Minutes PG Care Time/CCT Total # of Minutes Spent Total Time Spent with Patient: Total time spent is greater than 50% in coordination of care (as documented) at patient's floor/unit and/or counseling patient:
[2025-04-04] MEDS: ACETAMINOPHEN 325 MG TAB PO PRN (14:54)
--- NOTE | 2025-04-04 15:49 | Electrocardiogram Report ---
Test Reason : Blood Pressure : */* mmHG Vent. Rate : 74 BPM Atrial Rate : * BPM P-R Int : * ms QRS Dur : 120 ms QT Int : 378 ms P-R-T Axes : * -70 53 degrees QTcB Int : 419 ms Normal sinus rhythm Premature atrial complexes Left axis deviation Right bundle branch block Minimal voltage criteria for LVH, may be normal variant ( R in aVL ) Possible Lateral infarct , age undetermined Abnormal ECG When compared with ECG of 03-Apr-2025 18:02, Vent. rate has decreased by 170 bpm Confirmed by Timbo Dao ([id number]) on 04/04/2025 3:49:53 PM Referred By: REFERRED SELF Confirmed By: Timbo Dao
--- NOTE | 2025-04-04 15:50 | Electrocardiogram Report ---
Test Reason : Blood Pressure : */* mmHG Vent. Rate : 52 BPM Atrial Rate : 52 BPM P-R Int : 226 ms QRS Dur : 122 ms QT Int : 494 ms P-R-T Axes : 12 -65 -15 degrees QTcB Int : 459 ms Sinus bradycardia with 1st degree A-V block with Premature supraventricular complexes Left anterior fascicular block Left ventricular hypertrophy with QRS widening ( R in aVL ) Nonspecific ST abnormality Abnormal ECG When compared with ECG of 03-Apr-2025 18:17, (unconfirmed) Right bundle branch block is no longer Present Borderline criteria for Lateral infarct are no longer Present Confirmed by Timbo Dao ([id number]) on 04/04/2025 3:50:10 PM Referred By: REFERRED SELF Confirmed By: Timbo Dao
[2025-04-04] MEDS ORDERED: Nursing to Pharmacy Communication SCH (18:45)
[2025-04-04] MEDS: METOPROLOL TARTRATE 25 MG TAB PO SCH (19:58)
[2025-04-05 06:18] LABS: Hematocrit (blood only) 41.1 % (42.0-52.0); Hemoglobin 14.5 g/dL (14.0-18.0); Mean Corpuscular Hemoglobin 33.6 pg (25.0-34.0); Mean Corpuscular Volume 95.4 fL (80.0-100.0); Platelet Count 184 K/uL (130-400); RDW Standard Deviation 43.5 fL (36.4-46.3); Red Blood Count 4.31 M/uL (4.70-6.10); White Blood Count 5.69 K/ul (4.8-10.8)
[2025-04-05 06:49] LABS: Anion Gap 7.0 (3-11); Blood Urea Nitrogen 12.0 mg/dl (6-23); Calcium 8.7 mg/dl (8.6-10.3); Carbon Dioxide 24.0 mmol/L (21-32); Chloride 107.0 mmol/L (98-107); Cholesterol 119.0 mg/dl (0-200); Creatinine Clr Calc Pharmacy 87.8 ml/min; Glucose 111.0 mg/dl (70-99(Fasting)); HDL Cholesterol 43.0 mg/dl; Magnesium 2.0 mg/dl (1.7-2.4); Potassium 4.5 mmol/L (3.5-5.1); Sodium 138.0 mmol/L (136-145); Triglycerides 117.0 mg/dl (0-150)
--- NOTE | 2025-04-05 10:10 | History & Physical Bridge Note ---
Date of Service April 05, 2025 History & Physical Bridge Note I have examined the patient, reviewed the History & Physical and in the interval since the performance of the History & Physical I have noted the following changes of clinical significance: Pt with sustained VT and non-obstructive CAD and sinus bradycardia; he was recommended an ICD prior to hospital discharge. I discussed the procedure and potential complications with the patient. A formal shared decision making process was performed with Davi Sanford today utilizing the IDECIDE ICD evidence based tool from [employer] [place] [employer] Patient Centered Decisions. The discussion that followed was collaborative: detailing the information, risks, and benefits provided by the tool. We also discussed the values and preferences of Davi Sanford to build a consensus regarding the preferred treatment plan. A decision was reached to proceed with dual chamber ICD
--- NOTE | 2025-04-05 10:11 | Pre Anesthesia Assessment ---
Date of Service April 05, 2025 Pre Sedation Assessment Vital Signs Temp Pulse Pulse Resp BP BP Pulse Ox 04/05/25 09:19 55 L 14 155/111 H 93 04/05/25 07:08 36.9 C 53 L 20 145/106 H 93 04/05/25 07:02 52 L 04/05/25 03:00 36.5 C 58 L 18 171/109 H 93 04/04/25 22:21 36.7 C 60 18 151/106 H 91 04/04/25 19:59 36.6 C 68 18 162/102 H 94 04/04/25 18:20 36.4 C L 64 18 137/88 96 04/04/25 17:22 60 18 148/78 H 96 04/04/25 15:23 36.6 C 60 19 151/83 H 94 04/04/25 15:19 63 04/04/25 14:59 168/91 H 04/04/25 14:22 56 L 18 175/109 H 98 04/04/25 13:52 36.7 C 58 L 18 195/110 H 98 04/04/25 13:30 57 L 18 136/98 93 04/04/25 13:15 87 18 155/95 H 93 04/04/25 10:46 60 14 182/105 H 93 O2 Del Method 04/05/25 09:19 Room Air 04/05/25 07:08 Room Air 04/05/25 07:02 04/05/25 03:00 Room Air 04/04/25 22:21 Room Air 04/04/25 19:59 Room Air 04/04/25 18:20 Room Air 04/04/25 17:22 Room Air 04/04/25 15:23 Room Air 04/04/25 15:19 04/04/25 14:59 04/04/25 14:22 Room Air 04/04/25 13:52 Room Air 04/04/25 13:30 Room Air 04/04/25 13:15 Room Air 04/04/25 10:46 Room Air Cardiovascular + bradycardic Respiratory normal respiratory effort, lungs clear to auscultation Pre-Sedation Airway Assessment Smoking Status: Never smoker Hx Sleep Apnea: No Short, Thick Neck: No Thyromental Distance: > or= 3.5 Finger Breadths Oral Cavity: + WNL Mallampati Class: II ASA: ASA2 NPO Status Date of Last Intake of Fluids: 04/04/25 Time of Last Intake of Fluids: 22:00 Date of Last Intake of Solid Food: 04/04/25 Time of Last Intake of Solid Foods: 22:00 Procedure Planning Contraindications for Sedation: none Current Medications Reviewed: Yes Notes The planned sedation has been discussed with the patient. Informed Consent was obtained. I have identified the patient, determined the appropriateness of sedation and have assessed the patient immediately prior to the procedure. All medicine(s) and interventions are by my order.
[2025-04-05] MEDS: VANCOMYCIN HCL 1000MG/20ML VIAL ONE (11:01)
[2025-04-05] MEDS: LIDOCAINE 1% LOCAL 20 ML VIAL ONE (11:01)
[2025-04-05] MEDS: BUPIVACAINE 0.25% PF 30 ML VIAL ONE (11:01)
[2025-04-05] MEDS: WATER, STERILE FOR INJ 10 ML VIAL ONE (11:02)
[2025-04-05] MEDS: ceFAZolin 330 MG/ML 1 GM VIAL ONE (11:02)
[2025-04-05] MEDS: MIDAZOLAM HCL 5 MG/ML 1 ML VIAL ONE (11:29)
--- NOTE | 2025-04-05 11:30 | Post Anesthesia Assessment ---
Date of Service April 05, 2025 Post Sedation Assessment Vital Signs Temp Pulse Pulse Resp BP BP Pulse Ox 04/05/25 09:19 55 L 14 155/111 H 93 04/05/25 07:08 36.9 C 53 L 20 145/106 H 93 04/05/25 07:02 52 L 04/05/25 03:00 36.5 C 58 L 18 171/109 H 93 04/04/25 22:21 36.7 C 60 18 151/106 H 91 04/04/25 19:59 36.6 C 68 18 162/102 H 94 04/04/25 18:20 36.4 C L 64 18 137/88 96 04/04/25 17:22 60 18 148/78 H 96 04/04/25 15:23 36.6 C 60 19 151/83 H 94 04/04/25 15:19 63 04/04/25 14:59 168/91 H 04/04/25 14:22 56 L 18 175/109 H 98 04/04/25 13:52 36.7 C 58 L 18 195/110 H 98 04/04/25 13:30 57 L 18 136/98 93 04/04/25 13:15 87 18 155/95 H 93 O2 Del Method 04/05/25 09:19 Room Air 04/05/25 07:08 Room Air 04/05/25 07:02 04/05/25 03:00 Room Air 04/04/25 22:21 Room Air 04/04/25 19:59 Room Air 04/04/25 18:20 Room Air 04/04/25 17:22 Room Air 04/04/25 15:23 Room Air 04/04/25 15:19 04/04/25 14:59 04/04/25 14:22 Room Air 04/04/25 13:52 Room Air 04/04/25 13:30 Room Air 04/04/25 13:15 Room Air Recovery Score Activity: Moves 4 extremities Respiration: Deep Breath/Cough Circulation: +/-20% PreAnes Value Consciousness: Fully Awake Oxygen Saturation: > 92% On Room Air Post Anesthesia Score: 10 Discharge Sedation Level of Care: Fast Track Phase II Post Sedation Plan On clinical assessment, the patient appears to have tolerated the sedation without complications. Patient is recovering as anticipated. Patient will continue to be monitored by nursing and may be discharged when sedation discharge criteria are met per below protocol. Upon Completions of procedure up to 15 minutes continue every 5 minute vital signs and the P.A.R. score; then discharge to a Phase I or Fast Track to Phase II per the following guidelines: * Discharge Patient to appropriate Phase II area if PAR is 8 or greater or return to pre- procedure baseline. The post - procedure orders will be as directed. * If PAR score is less than 8 or not return to pre-procedure baseline then patient will follow Phase I monitoring till PAR is reached for Phase II. The Phase I may be done in procedure room or may call to secure a Phase I area. * If naloxone or flumazenil are used for reversal, hold in Phase I for continue d monitoring from when last reversal dose was given for a minimum of 60 minutes or longer pending the nurse and/or physician discretion of patient condition before discharge to Phase II. Please call the Sedation Physician to re-evaluate and complete post-note for discharge to Phase II area. Do NOT discharge from procedure sedation or Phase 1 until post- sedation evaluation note is complete by procedure /sedation MD Sedation Discharge Instructions to be given to the patient at discharge to home.
[2025-04-05] MEDS: LOSARTAN POTASSIUM 50 MG TAB PO ONE ×2 (12:27→12:33)
[2025-04-05] MEDS: METOPROLOL SUCC 50MG EXT REL TAB PO SCH (12:33)
--- NOTE | 2025-04-05 12:59 | Cardiology Progress Note ---
Date of Service April 05, 2025 Assessment & Plan (1) Ventricular tachycardia: (2) Non-ST elevation (NSTEMI) myocardial infarction: (3) Coronary artery calcification: (4) Hypertension: Plan 70-year-old male admitted with NSTEMI and sustained ventricular tachycardia requiring external direct-current cardioversion. Echocardiogram demonstrating preserved LV systolic function. Cardiac catheterization performed 04/04/2025 demonstrating nonobstructive coronary artery disease. Low-dose beta-john restarted last evening. ICD implanted today without complication. Discussed treatment with beta-jhon therapy versus addition of antiarrhythmic therapy, amiodarone. Patient prefers to avoid amiodarone after reviewing potential side effects. Agreeable to titration of Toprol-XL to 50 mg daily. Blood pressure remains elevated. Titrate losartan to 100 mg daily. Review postprocedural x-ray when available. Postcardiac catheterization and ICD implantation activity restrictions reviewed. Patient may not lift the left elbow above the left shoulder for 1 month. He cannot lift more than 10 pounds with his left upper extremity for 2 weeks. Outpatient wound check and device interrogation in 1 week Outpatient cardiology follow-up scheduled 04/18/2025. Tej Huggins DO, [facility] RECOMMENDATIONS Post Cardiac Catheterization: Excess manipulation of the wrist should be avoided for the next 24 hours. * No lifting over 2 pounds (approximately a 1/2 gallon of milk) with the utilized arm for 24 hours. * No strenuous activity such as bowling or tennis for 3 days. * Keep the site of the procedure covered with a bandage for 24 hours. *You may shower the day after the procedure. Do not take a tub bath or submerge the puncture site in water for the next 3 days. *Do not operate any motorized equipment for 3 days. SPECIAL CARE INSTRUCTIONS: The site may be slightly bruised and sore following your procedure. Should any of the following occur, contact the Dr. who performed your procedure. 1. Redness/inflammation, swelling, chills, or fever, or colored drainage at procedure site within 3-7 days after your procedure. 2. Coldness, discoloration, ongoing numbness, severe pain, or swelling. Expect mild tingling of hand and tenderness at the puncture site for up to three days. If this persists beyond three days, or other symptoms develop, notify the DrZiyad who performed your procedure. BLEEDING: If the procedure site on your wrist begins to bleed, do not panic 1. Place 1 or 2 fingers firmly just slightly above the insertion site to stop the bleeding. You may be able to feel your pulse as you hold pressure. 2. Lift your finger after 5 minutes to see if the bleeding has stopped. 3. Once the bleeding has stopped, gently wipe the wrist area clean with a bandage. * If the bleeding from your wrist does not stop after 10 minutes, or if there is a large amount of bleeding or spurting, call 911 ([address] drive yourself to the hospital). SKIN IRRITATION: * You may experience some redness and/or swelling in the area where radiation was administered. If any skin irritation occurs, please contact your family physician. FOLLOW UP VISIT: Keep any scheduled doctor appointments. Admission and Anticipated Discharge Date Admission Date: April 03, 2025 Subjective 70-year-old male seen and examined at the bedside. ICD implanted today without complication. Denies chest pain or shortness of breath. No orthopnea, PND, or edema. Offers no concerns/complaints. Review of Systems Review of Systems: All systems reviewed & are unremarkable except as noted in Subjective Physical Exam Constitutional: well nourished; no acute distress Respiratory: no respiratory distress and no labored breathing Auscultation: no crackles, no rales, no rhonchi and no wheezes Cardiovascular: Rate/Rhythm: regular rate and regular rhythm Heart Sounds: normal S1 and normal S2; no murmur Vessels: femoral pulses present and radial pulses present; no JVD and no carotid bruit Extremities: no edema Gastrointestinal (Abdomen): Inspection/Auscultation: abdomen normal to inspection; abdomen not distended Percussion/Palpation: abdomen soft; abdomen nontender, no guarding and abdomen not rigid Neurologic: CN's II-XI intact bilaterally and moves all extremities; no focal motor deficits Results & Data Vital Signs (Past 12 Hours) Vital Signs Temp Pulse Pulse Resp BP BP Pulse Ox 04/05/25 12:00 60 14 151/120 H 92 04/05/25 11:41 60 14 172/113 H 92 04/05/25 09:19 55 L 14 155/111 H 93 04/05/25 07:08 36.9 C 53 L 20 145/106 H 93 04/05/25 07:02 52 L 04/05/25 03:00 36.5 C 58 L 18 171/109 H 93 O2 Del Method 04/05/25 12:00 Room Air 04/05/25 11:41 Room Air 04/05/25 09:19 Room Air 04/05/25 07:08 Room Air 04/05/25 07:02 04/05/25 03:00 Room Air Laboratory Results Lipids 04/05/25 Range/Units 05:50 Triglycerides 117 (0-150) mg/dl Cholesterol 119 (0-200) mg/dl HDL Cholesterol 43 mg/dl Cholesterol/HDL Ratio 2.8 (0-5) CBC 04/05/25 Range/Units 05:50 WBC 5.69 (4.8-10.8) K/ul RBC 4.31 L (4.70-6.10) M/uL Hgb 14.5 (14.0-18.0) g/dL Hct 41.1 L (42.0-52.0) % Plt Count 184 (130-400) K/uL Comprehensive Metabolic Panel 04/05/25 Range/Units 05:50 Sodium 138 (136-145) mmol/L Potassium 4.5 (3.5-5.1) mmol/L Chloride 107 (98-107) mmol/L Carbon Dioxide 24 (21-32) mmol/L BUN 12 (6-23) mg/dl Creatinine 0.98 (0.6-1.4) mg/dl Glucose 111 H (70-99(Fasting)) mg/dl Calcium 8.7 (8.6-10.3) mg/dl Intake and Output 04/04/25 04/05/25 04/05/25 22:59 06:59 14:59 Intake Total 490 / 1575.200 Output Total 300 / 1900 800 / 1900 Balance 190 / -324.800 -800 / -324.800 Intake: IV 0 / 1085.200 Heparin 68218 Unit/500 ml D5w 0 / 75.200 25,000 units In 500 ml @ 0 UNITS/HR IV .Q0M [facility] Rx#: [id number] Oral 490 / 490 Output: Urine 300 / 1900 800 / 1900 Other: Weight 107.8 kg Weight Measurement Method Built in [facility] Care Time/CCT Total # of Minutes Spent Total Time Spent with Patient: Total time spent is greater than 50% in coordination of care (as documented) at patient's floor/unit and/or counseling patient: Coding Level of Care Code 72551 SUB INP/OBS CARE 350MIN Diagnoses Ventricular tachycardia I47.20 Non-ST elevation (NSTEMI) myocardial infarction I21.4 Coronary artery calcification I25.10 Essential hypertension I10 Hypertension type: essential hypertension (4) Hypertension Hypertension type: essential hypertension Qualified Code(s): I10 - Essential (primary) hypertension
[2025-04-05 13:12] VITALS: PULSE 60
--- NOTE | 2025-04-05 14:12 | XRay Report ---
XR chest 1V portable CLINICAL HISTORY: s/p icd ensure no PTX COMPARISON STUDY: 04/03/2025 FINDINGS: The heart is enlarged. There is tortuosity/ectasia of the thoracic aorta. There is no failu re. There is no lobar consolidation. Increased markings at the level of the right lung base are likel y atelectatic. There is been interval placement of a left subclavian implantable defibrillator. Elect rode position appears unremarkable. No pneumothorax is visualized. There are postsurgical changes pre sent within the cervical spine. IMPRESSION: No evidence of pneumothorax status post placement of a left subclavian implantable defib rillator. ACT 112: Negative or not required by law. Electronically signed by: Dennis Zafar M.D. 04/05/2025 2:11 PM
[2025-04-05 14:54] VITALS: RESP 17; TEMP 97.9; O2SAT 93
--- NOTE | 2025-04-05 14:58 | Discharge Summary ---
Discharge Summary Date of Service April 05, 2025 Principal Dx & Hospital Course #1 = Principal Diagnosis (1) Non-ST elevation (NSTEMI) myocardial infarction: (2) Paroxysmal ventricular tachycardia: Status post cardioversion in ED (3) Coronary artery calcification: (4) Hypertension: (5) Dyslipidemia: Plan Patient 70-year-old gentleman presented to the emergency room with acute onset of lightheadedness and dizziness and chest pain. In the emergency room EKG revealed ventricular tachycardia. Patient was electrically cardioverted in the ED and given an amiodarone bolus. Patient subsequently became somewhat bradycardic and was referred for further evaluation. Patient was admitted to the hospital on a monitored unit. Amiodarone and metoprolol was held due to relative bradycardia. Troponins were trended and were increased. He was on IV heparin drip. Patient did have a recurrent short run of ventricular tachycardia. Cardiology consultation was obtained. Patient was taken for cardiac catheterization. Cardiac catheterization showed nonocclusive disease. Patient's blood pressure was managed with both IV and oral medications. With the patient having relatively unprovoked ventricular tachycardia was recommend the patient have AICD placed. On the day of discharge patient underwent AICD placement. Postprocedure course was uneventful. He was started on metoprolol succinate and losartan postprocedure for blood pressure control and rhythm control. Cardiology discussed possible amiodarone treatment with the patient. At this time patient chose to continue on the beta-john. Postprocedure chest x-ray was negative for pneumothorax. Other vital signs and laboratory studies were stable. Patient was given instructions on activity and wound care. He be discharged home to follow-up with his PCP and cardiology. Notes For Next Care Provider Follow-up with cardiology May need additional titration of antihypertensive medications Medication Changes From Visit Losartan dose increased Metoprolol dose increased Admission HPI Per Admitting Provider This is a 70 yr old M who has a significant PMH of HTN, HLD, pre diabetes, GERD, hx of insomnia, hx of lacunar infarct per brain MRI 06/2022 who presents to ED 2/2 chest pain that started shortly prior to pts arrival. Pt was out hunting this evening when he developed a substernal chest pain with associated lightheaded. When he arrived in triage per nursing notes pt looked unwell, in distress and was diaphoretic. He was found to have HR in 240s and tele monitor revealed a wide complex tachycardia. Initially pt was normotensive, but as ED visit progressed his blood pressure was unable to be found with persistent HR in 230s-250s. ED provider administered 5mg of IV versed and performed synchronized cardioversion at 200J with improvements of HR to 60s with rhythm of atrial fibrillation. He was started on IV heparin and IV amiodarone and was recommended for admission. External chart was reviewed in [facility]. Echo in September of 2024 revealed LVEF 55-59%, grade 1 diastolic dysfunction, mild TR, mild pulm htn, aortic root enlarged to 4.1cm and thoracic aortic mildly enlarged to 4.1cm. He does follow with [facility] cardiology due to HTN, RBBB, aortic root aneursym and HLD. Patient was seen in a 1 trauma bay with , son, 2 daughters and granddaughter at bedside. He reports being out hunting this evening whenever he heard what he thought was his grandson shoot his gun. He then turned around to walk back out to find him whenever he developed intense substernal chest pain that was nonradiating. He describes it as a crushing sensation. It was also associated with lightheadedness and dizziness. He sat down on a rock which improved his lightheadedness. He then opted to turn around and walked back to his car which was approximately 60 yards. He then contacted his who met him and brought him to ED. reports that he was sweaty and pale. Patient reports having similar chest pain symptoms, but never experienced it to the point that it did not go away. His symptoms persisted until he was treated in the ED. He reports previous episodes of similar substernal chest pain whenever he would ambulate and hike out in the [place] specifically up hills. As soon as he would get to the top of the hill or take a break it would go away. He denies any prior history of CAD, arrhythmia, atrial fibrillation or cardiac catheterization. He does report that his brother was recently diagnosed with atrial fibrillation. His mother had bradycardia requiring pacemaker placement as well as valve replacement but no history of arrhythmia in mother or father. He denies any tobacco or drug use. He does occasionally drink alcohol. Currently he feels significantly improved since treatment in ED. He currently denies any chest pain, shortness of breath, lightheadedness, dizziness, palpitations, nausea, vomiting or abdominal pain. He denies any recent illness. Admission Exam Per Admitting Provider See H&P Discharge Exam Constitutional: Alert, nontoxic HEENT: Mucous membranes moist. Lungs: Clear to auscultation, decreased, no wheezes rales or rhonchi CV: S1-S2, regular, dressing left subclavian area clean and dry Abdomen: Soft, nontender, nondistended Extremities: No significant edema Neuro: No focal deficits Psych: Cooperative, normal mood Updated Medication List Medication Instructions Recorded Confirmed Type aspirin 81 mg tablet 81 mg PO HS 10/03/20 04/03/25 History atorvastatin 20 mg tablet 20 mg PO HS 10/03/20 04/03/25 History melatonin 10 mg tablet 10 mg PO HS 10/03/20 04/03/25 History metoprolol succinate 25 mg 25 mg PO QA 10/03/20 04/03/25 History tablet,extended release 24 hr multivitamin 1 tab PO QA 10/03/20 04/03/25 History omeprazole 20 mg capsule,delayed 20 mg PO QA 10/03/20 04/03/25 History release trazodone 100 mg tablet 100 mg PO HS 10/03/20 04/03/25 History meclizine 25 mg tablet 25 mg PO TID PRN dizziness #30 tabs 06/14/22 04/03/25 Rx cholecalciferol (vitamin D3) 50 50 mcg PO DAILY 04/03/25 04/03/25 History mcg (2,000 unit) tablet fluorouracil 5 % topical cream 1 applic topical BID 04/03/25 04/03/25 History losartan 50 mg tablet 50 mg PO HS 04/03/25 04/03/25 History montelukast 10 mg tablet 10 mg PO QAM 04/03/25 04/03/25 History losartan 100 mg tablet 100 mg PO DAILY #30 tabs 04/05/25 Rx metoprolol succinate 50 mg 50 mg PO DAILY #30 tabs 04/05/25 Rx tablet,extended release 24 hr (Toprol XL) Hospital Stay Data Consultations 04/03/25 19:15 ED Decision to Admit Stat 04/03/25 21:54 Consult Cardiology Routine Procedures Performed Operation Date: 04/05/25 10:00 Actual Procedures p ICD Insertion Single or Dual - Lor Peraza DO s Venogram, Unilateral - Lor Peraza DO Diagnostic Imagining Performed 04/03/25 18:19 CTA chest dissec wo/w con [CT angio chest dissec wo/w con] Stat 04/04/25 11:00 CL Cath Imgs for PACS use only Routine 04/05/25 06:15 EP Lab Images for PACS ONCE Reviewed imaging, laboratory and diagnostic studies. Pertinent findings as below. WBCs 5.6 Hemoglobin 14.5 Platelets 184 Electrolytes within normal range Creatinine 0.98 Troponin [id number] Triglycerides 117 Total cholesterol 119 LDL 53 HDL 43 TSH 2.1 Lyme screen negative Pending Results Patient Have Any Pending Studies at Discharge: No Discharge Instructions Given to Patient (Per Discharging Provider) device and wound check in [facility] Cardiology in 10-14 days-someone will call you with the appointment Total Time Total Time Spent Total Time Spent (In Minutes): 40
[2025-04-05 15:46] VITALS: BP 170/91
[2025-04-06] MEDS ORDERED: LOSARTAN POTASSIUM 50 MG TAB PO SCH (21:00)
== END 2025-04-05 16:26 | disposition home or self-care (01) | DRG 281 ==
LOC: ED 17:58 → 2E 20:26
PROC: EPB.ICD (2025-04-05 10:00)

== ENCOUNTER 2025-04-16 00:36 | Inpatient (IN) ==
--- NOTE | 2025-04-16 02:22 | XRay Report ---
EXAM: XR chest 1V portable CLINICAL HISTORY: Chest pain, nonspecific. TECHNIQUE: An X-ray image of the chest is obtained in AP projection. COMPARISON: 04/05/2025 X-ray. FINDINGS: Pulmonary Parenchyma: Slight regression of the previously noted right lower lung zone paracradiac/hilar opacities. Still seen left lower lung zone faint opacity that may be due to the overlap of the soft tissue. No evidence of collapse. No evidence of pleural effusion or pleural thickening. Heart and Mediastinum: Stable enlarged cardiac size. No hilar or mediastinal lymphadenopathy. Still seen well placed left-sided cardiac defibrillator. Stable tortuosity of the aorta. Bony Thorax: Bony thorax appears intact without fractures or deformities. Stable degenerative changes of the scanned spine. Stable lower cervical disc cages. Soft Tissues: EKG leads projected over the chest wall. Otherwise, the soft tissues overlying the chest wall are unremarkable. IMPRESSION: 1. No acute cardiopulmonary abnormalities are identified. 2. Slight regression of the previously noted right lower lung zone paracradiac/hilar opacities that could represent an inflammatory/infectious process or pulmonary congestion that needs clinical correlation. Electronically signed by Han Red 04-16-2025 02:22 AM
[2025-04-16 02:24] LABS: Hematocrit (blood only) 40.5 % (42.0-52.0); Hemoglobin 14.0 g/dL (14.0-18.0); Immature Granulocytes # (auto) 0.05 K/uL (0.01-0.20); Immature Granulocytes % (auto) 0.7 %; Mean Corpuscular Hemoglobin 33.0 pg (25.0-34.0); Mean Corpuscular Volume 95.5 fL (80.0-100.0); Platelet Count 156 K/uL (130-400); RDW Standard Deviation 44.0 fL (36.4-46.3); Red Blood Count 4.24 M/uL (4.70-6.10); White Blood Count 7.57 K/ul (4.8-10.8)
[2025-04-16 02:42] LABS: Alanine Aminotransferase 19.0 U/L (7-52); Albumin Globulin Ratio 1.8 (0.9-2); Albumin Level 4.0 gm/dl (3.4-5.0); Alkaline Phosphatase 66.0 U/L (34-104); Anion Gap 8.0 (3-11); Bilirubin,Total 1.3 mg/dl (0.2-1.0); Blood Urea Nitrogen 16.0 mg/dl (6-23); Calcium 8.9 mg/dl (8.6-10.3); Carbon Dioxide 26.0 mmol/L (21-32); Chloride 106.0 mmol/L (98-107); Creatinine Clr Calc Pharmacy 85.3 ml/min; Globulin 2.2 gm/dl (2.5-4.0); Glucose 104.0 mg/dl (70-99(Fasting)); Lipase 42.0 U/L (11-82); Potassium 3.9 mmol/L (3.5-5.1); Sodium 140.0 mmol/L (136-145); Total Protein 6.2 gm/dl (6.0-8.3)
--- NOTE | 2025-04-16 02:47 | Emergency Department Note ---
ED Visit Note ED Physician Supervisory Note & Attestation: I was consulted by the Advanced Practice Provider, Johnny BELCHER. I personally made/approved the management plan and take responsibility for the patient management. I performed a substantive portion of the visit. This includes the aspects of: MDM: 70 year-old gentleman arrives for evaluation of worsening chest pain. Recent hospitalization for cardiac cath and pacemaker placement following an NSTEMI and V. tach. Tao Caro MD
--- NOTE | 2025-04-16 02:48 | Emergency Department Note ---
History of Present Illness General Chief complaint: Cardiac Assessment Stated complaint: HEART HURTS Time Seen by Provider: 04/16/25 00:40 History of Present Illness Maximum Pain Intensity: 5 This is a 70-year-old male presenting to the emergency department for evaluation of left-sided chest pain. Patient has an extensive recent cardiac history including V. tach with cardiac catheterization and subsequent pacemaker placement 12 days ago at this facility. Patient has been doing very well after discharge, but tonight he developed new symptoms. He rates his overall discomfort a 5/10. No lightheadedness or dizziness. No fevers or chills. Sometimes it feels like it is difficult to get a full breath. Home Medications Medication Instructions Recorded Confirmed Type aspirin 81 mg tablet 81 mg PO HS 10/03/20 04/16/25 History atorvastatin 20 mg tablet 20 mg PO HS 10/03/20 04/16/25 History melatonin 10 mg tablet 10 mg PO HS 10/03/20 04/16/25 History multivitamin 1 tab PO QAM 10/03/20 04/16/25 History omeprazole 20 mg capsule,delayed 20 mg PO QAM 10/03/20 04/16/25 History release trazodone 100 mg tablet 100 mg PO HS 10/03/20 04/16/25 History meclizine 25 mg tablet 25 mg PO TID PRN dizziness #30 tabs 06/14/22 04/16/25 Rx cholecalciferol (vitamin D3) 50 50 mcg PO DAILY 04/03/25 04/16/25 History mcg (2,000 unit) tablet fluorouracil 5 % topical cream 1 applic topical BID 04/03/25 04/16/25 History montelukast 10 mg tablet 10 mg PO QAM 04/03/25 04/16/25 History losartan 100 mg tablet 100 mg PO QAM 04/16/25 04/16/25 History metoprolol succinate 50 mg 50 mg PO QAM 04/16/25 04/16/25 History tablet,extended release 24 hr (Toprol XL) Allergies Allergy/AdvReac Type Severity Reaction Status Date / Time aspirin [From Percodan] Allergy Intermediate Itching Verified 04/16/25 01:06 lisinopril Allergy Mild Cough Verified 04/16/25 01:06 oxycodone Allergy Mild itching Verified 04/16/25 01:06 Past Med/Surg History Problem List (Updated 04/16/25 @ 21:56 by Johnny Rojas PA-C) History of ventricular tachycardia (Acute) Left-sided chest pain (Acute) CAD (coronary artery disease) Pericarditis Paroxysmal ventricular tachycardia Coronary artery calcification Non-ST elevation (NSTEMI) myocardial infarction Dizziness (Acute) New onset a-fib (Acute) History of cardioversion (Acute) Chest pain (Acute) Ventricular tachycardia (Acute) H/O bilateral hip replacements Hypertension Prediabetes Dyslipidemia Cervical stenosis of spinal canal Encounter for pre-operative examination History of esophagogastroduodenoscopy (EGD) GERD (gastroesophageal reflux disease) (Chronic) Osteoarthritis (Chronic) Medical History Aortic root aneurysm Nausea and vomiting after administration of anesthetic agent Ocular migraine "a couple times a year" Surgical History History of mandibular surgery (~1984) to repair cartilage tear History of colonoscopy S/P epidural steroid injection Family History Daughter Leukemia Sister Multiple sclerosis Mother Hypertension Other No family history of adverse response to anesthesia Social History Smoking Status: Never smoker Second Hand Exposure: No; Do You Dip or Chew Tobacco: No; Hx Alcohol Use: Yes Alcohol type: hard liquor Alcohol Intake Frequency: 2-4 x/Month Hx Substance Use: No Preferred Language: Yakut Communication Ability: Effective 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: No Beliefs That Will Affect Care: None Current Living Situation: Spouse Current Living Situation Comment: Lives w/ spouse at home Feels Safe at Home: Yes Safety Concerns: Feels Safe At This Time Assistive Devices: None Review of Systems A total of 10 systems reviewed and were otherwise negative Physical Exam Vital Signs Vital Signs - 24 hr 04/16/25 00:37 04/16/25 00:41 04/16/25 00:50 Temperature 36.7 C Temperature Source Temporal Artery Scan Pulse Rate 61 60 Pulse Rate from SpO2 Sensor Pulse Rhythm Regular Respiratory Rate 18 Respiratory Effort / Characteristics Non-Labored Spontaneous Respiratory Depth Normal Blood Pressure 180/103 H Blood Pressure Mean 128 Pulse Oximetry 95 99 Oxygen Delivery Method Room Air Room Air Sepsis Recent Fever Within 48 Hours No Sepsis New/Unexplained Change in Mental Status N/A Sepsis Action Taken by Nursing No Action Required 04/16/25 00:56 04/16/25 01:00 04/16/25 01:30 Temperature Temperature Source Pulse Rate 60 61 Pulse Rate from SpO2 Sensor 60 61 Pulse Rhythm Respiratory Rate 18 16 Respiratory Effort / Characteristics Respiratory Depth Blood Pressure 145/108 H 141/98 H Blood Pressure Mean 120 112 Pulse Oximetry 94 92 Oxygen Delivery Method Room Air Sepsis Recent Fever Within 48 Hours Sepsis New/Unexplained Change in Mental Status Sepsis Action Taken by Nursing 04/16/25 02:00 04/16/25 02:30 04/16/25 03:00 Temperature Temperature Source Pulse Rate 61 61 60 Pulse Rate from SpO2 Sensor 60 60 60 Pulse Rhythm Respiratory Rate 19 14 16 Respiratory Effort / Characteristics Respiratory Depth Blood Pressure 150/104 H 154/110 H 164/106 H Blood Pressure Mean 119 124 125 Pulse Oximetry 94 92 92 Oxygen Delivery Method Sepsis Recent Fever Within 48 Hours Sepsis New/Unexplained Change in Mental Status Sepsis Action Taken by Nursing VITALS: Vitals are noted on the nurse's note and reviewed by myself. Vital signs stable. GENERAL: Well-developed, well-nourished, white male, who is in no acute distress and resting comfortably. Patient is cooperative with the examination. HEAD: Normocephalic atraumatic. NECK: Supple without nuchal rigidity. No lymphadenopathy. No thyromegaly. Cervical spine is nontender. HEART: Regular rate and rhythm without murmurs gallops or rubs. LUNGS: Clear to auscultation bilaterally without wheezes, rales or rhonchi. No retractions or accessory muscle use. CHEST WALL: No significant erythema or edema noted around pacemaker left upper chest wall ABDOMEN: Positive normal bowel sounds x 4. Soft, nontender, without masses or organomegaly. No guarding or rebound tenderness. MUSCULOSKELETAL: No muscle atrophy, erythema, or edema noted. Full range of motion in all extremities. Course Administered Medications Hydrocodone Bitart/Acetaminophen (Hydrocodone/Acetamophen 5/325mg Tab) 1 tab PO QID PRN PRN Reason: Pain Stop: 04/30/25 03:56 Last Admin: 04/16/25 11:55 Dose: 1 tab Documented By: GABRIEL Amlodipine Besylate (Amlodipine Besylate 5 Mg Tab) 2.5 mg PO QAM [facility] Stop: 05/16/25 08:59 Last Admin: 04/16/25 07:53 Dose: 2.5 mg Documented By: GABRIEL Aspirin (Aspirin 81 Mg Ectab) 81 mg PO [facility] Stop: 05/16/25 20:59 Last Admin: 04/16/25 20:28 Dose: 81 mg Documented By: rmt Atorvastatin Calcium (Atorvastatin 20 Mg Tab) 20 mg PO [facility] Stop: 05/16/25 20:59 Last Admin: 04/16/25 20:29 Dose: 20 mg Documented By: [email or web address] Colchicine (Colchicine 0.6 Mg Tab) 0.6 mg PO BID [facility] Stop: 05/16/25 10:44 Last Admin: 04/16/25 20:28 Dose: 0.6 mg Documented By: [email or web address] Admin: 04/16/25 11:45 Dose: 0.6 mg Documented By: GABRIEL Enoxaparin Sodium (Enoxaparin Inj 40 Mg/0.4 Ml Syr) 40 mg SQ [facility] Stop: 05/16/25 08:59 Last Admin: 04/16/25 09:58 Dose: 40 mg Documented By: GABRIEL Ketorolac Tromethamine (Ketorolac Tromethamine 15 Mg/Ml Vial) 15 mg IV Q6H PRN PRN Reason: Pain Stop: 04/21/25 13:01 Last Admin: 04/16/25 20:29 Dose: 15 mg Documented By: [email or web address] Admin: 04/16/25 14:06 Dose: 15 mg Documented By: GABRIEL Losartan Potassium (Losartan Potassium 50 Mg Tab) 100 mg PO [facility] Stop: 05/16/25 08:59 Last Admin: 04/16/25 07:50 Dose: 100 mg Documented By: GABRIEL Melatonin (Melatonin 3 Mg Tab) 9 mg PO HS PRN PRN Reason: insomnia Stop: 05/16/25 04:02 Last Admin: 04/16/25 20:27 Dose: 9 mg Documented By: [email or web address] Metoprolol Succinate (Metoprolol Succ 50mg Ext Rel Tab) 50 mg PO [facility] Stop: 05/16/25 08:59 Last Admin: 04/16/25 07:50 Dose: 50 mg Documented By: GABRIEL Montelukast Sodium (Montelukast Sodium 10 Mg Tablet) 10 mg PO [facility] Stop: 05/16/25 08:59 Last Admin: 04/16/25 09:58 Dose: 10 mg Documented By: GABRIEL Morphine Sulfate (Morphine Sulfate 4 Mg/Ml 1 Ml Carp\\Vial) 4 mg IV Q4H PRN PRN Reason: Pain Stop: 04/30/25 03:56 Last Admin: 04/16/25 10:04 Dose: 4 mg Documented By: GABRIEL [facility]ivit[facility] ([facility]amin Tab) [facility] Stop: 05/16/25 08:59 Last Admin: 04/16/25 09:58 Dose: 1 tab Documented By: GABRIEL Nitroglycerin (Nitroglycerin 2% Ointment 30gm Tube) 0.5 inch EXT Q6H [facility] Stop: 05/16/25 13:14 Last Admin: 04/16/25 20:26 Dose: 0.5 inch Documented By: simeon Admin: 04/16/25 13:37 Dose: 0.5 inch Documented By: GABRIEL Pantoprazole Sodium (Pantoprazole 40 Mg Tab) [facility] Stop: 05/16/25 08:59 Last Admin: 04/16/25 09:58 Dose: 40 mg Documented By: GABRIEL Trazodone HCl (Trazodone Hcl 100 Mg Tab) 100 mg PO HS [facility] Stop: 05/16/25 20:59 Last Admin: 04/16/25 20:27 Dose: 100 mg Documented By: simeon Discontinued Medications Hydrocodone Bitart/Acetaminophen (Hydrocodone/Acetamophen 5/325mg Tab) 1 tab PO NOW STA Stop: 04/16/25 04:55 Last Admin: 04/16/25 05:26 Dose: 1 tab Documented By: simeon Magnesium Sulfate/Dextrose (Magnesium Sulfate / D5w) 1 gm in 100 mls @ 50 mls/hr IV ONE STA Stop: 04/16/25 06:01 Last Infusion: 04/16/25 07:00 Dose: Infused Documented By: simeon Admin: 04/16/25 04:41 Dose: 50 mls/hr Documented By: simeon Sodium Chloride (Nss) 1,000 mls @ 50 mls/hr IV .Q20H ONE Stop: 04/17/25 00:54 Last Infusion: 04/16/25 06:27 Dose: Infused Documented By: simeon Admin: 04/16/25 05:28 Dose: 50 mls/hr Documented By: simeon Acetaminophen (Ofirmev) 1,000 mg in 100 mls @ 400 mls/hr IV NOW STA Stop: 04/16/25 07:16 Last Infusion: 04/16/25 07:37 Dose: Infused Documented By: Admin: 04/16/25 07:20 Dose: 400 mls/hr Documented By: GABRIEL Methylprednisolone 40 mg/ (Syringe) 0.64 mls @ 1.5 mls/min IV ONE ONE Stop: 04/16/25 10:46 Last Admin: 04/16/25 11:45 Dose: 1.5 mls/min Documented By: GABRIEL Ioversol (Optiray 320 125ml) 120 ml IV ONCE ONE Stop: 04/16/25 04:59 Last Admin: 04/16/25 04:58 Dose: 120 ml Documented By: BRSherie Nitroglycerin (Nitroglycerin Sl 0.4 Mg/Tab Tab) 0.4 mg SL NOW STA Stop: 04/16/25 03:55 Last Admin: 04/16/25 04:14 Dose: 0.4 mg Documented By: NAW Potassium Chloride (Potassium Chloride 10 Meq Tabcr) 10 meq PO NOW STA Stop: 04/16/25 03:56 Last Admin: 04/16/25 04:41 Dose: 10 meq Documented By: rmt Medical Decision Making Differential Diagnosis Differential diagnosis includes, but is not limited to: Myocardial infarction, dysrhythmia, pericarditis, pneumothorax, aortic aneurysm/dissection, DVT/PE, anxiety, GERD, PUD, electrolyte imbalance, thyroid disorder, pneumonia, bronchitis, pancreatitis, and others Laboratory Data 04/16/25 02:07 04/16/25 02:07 Lab Results 04/16/25 Range/Units 02:07 WBC 7.57 (4.8-10.8) K/ul RBC 4.24 L (4.70-6.10) M/uL Hgb 14.0 (14.0-18.0) g/dL Hct 40.5 L (42.0-52.0) % MCV 95.5 (80.0-100.0) fL MCH 33.0 (25.0-34.0) pg MCHC 34.6 (32.0-36.0) g/dL RDW Std Deviation 44.0 (36.4-46.3) fL RDW Coeff of Roney 12.5 (11.5-14.5) % Plt Count 156 (130-400) K/uL MPV 9.8 (9.4-12.4) fL Immature Gran % (Auto) 0.7 % Neut % (Auto) 65.8 % Lymph % (Auto) 21.8 % [place] % (Auto) 8.7 % Eos % (Auto) 2.2 % Baso % (Auto) 0.8 % Neut # (Auto) 4.98 (1.40-6.50) K/uL Lymph # (Auto) 1.65 (1.20-3.40) K/uL [place] # (Auto) 0.66 H (0.11-0.59) K/uL Eos # (Auto) 0.17 (0.00-0.50) K/uL Baso # (Auto) 0.06 (0.00-0.20) K/uL Immature Gran # (Auto) 0.05 (0.01-0.20) K/uL PT 10.3 (9.0-12.0) Seconds INR 1.0 (0.9-1.1) APTT 26 (21-31) Seconds PTT Ratio 1.0 Sodium 140 (136-145) mmol/L Potassium 3.9 (3.5-5.1) mmol/L Chloride 106 (98-107) mmol/L Carbon Dioxide 26 (21-32) mmol/L Anion Gap 8 (3-11) BUN 16 (6-23) mg/dl Creatinine 1.01 (0.6-1.4) mg/dl Est Cr Clr Drug Dosing 85.3 ml/min eGFR 79.02 BUN/Creatinine Ratio 15.8 (10-20) Glucose 104 H (70-99(Fasting)) mg/dl Calcium 8.9 (8.6-10.3) mg/dl Magnesium 1.9 (1.7-2.4) mg/dl Total Bilirubin 1.3 H (0.2-1.0) mg/dl AST 25 (13-39) U/L ALT 19 (7-52) U/L Alkaline Phosphatase 66 (34-104) U/L Troponin I High Sens 8.2 (0-20) pg/ml Total Protein 6.2 (6.0-8.3) gm/dl Albumin 4.0 (3.4-5.0) gm/dl Globulin 2.2 L (2.5-4.0) gm/dl Albumin/Globulin Ratio 1.8 (0.9-2) Lipase 42 (11-82) U/L Imaging Data Radiologist's Impression: Chest X-Ray 04/16/25 00:41 EXAM: XR chest 1V portable CLINICAL HISTORY: Chest pain, nonspecific. TECHNIQUE: An X-ray image of the chest is obtained in AP projection. COMPARISON: 04/05/2025 X-ray. FINDINGS: Pulmonary Parenchyma: Slight regression of the previously noted right lower lung zone paracradiac/hilar opacities. Still seen left lower lung zone faint opacity that may be due to the overlap of the soft tissue. No evidence of collapse. No evidence of pleural effusion or pleural thickening. Heart and Mediastinum: Stable enlarged cardiac size. No hilar or mediastinal lymphadenopathy. Still seen well placed left-sided cardiac defibrillator. Stable tortuosity of the aorta. Bony Thorax: Bony thorax appears intact without fractures or deformities. Stable degenerative changes of the scanned spine. Stable lower cervical disc cages. Soft Tissues: EKG leads projected over the chest wall. Otherwise, the soft tissues overlying the chest wall are unremarkable. IMPRESSION: 1. No acute cardiopulmonary abnormalities are identified. 2. Slight regression of the previously noted right lower lung zone paracradiac/hilar opacities that could represent an inflammatory/infectious process or pulmonary congestion that needs clinical correlation. Electronically signed by Han Red 04-16-2025 02:22 AM ECG Data Attestation: I personally reviewed and interpreted this ECG as follows: Indication: + chest pain Additional Comments: Atrial paced rhythm at [address] elevation MDM Narrative Physical exam and history were performed. Nursing notes, EMR, and Medication List were personally reviewed. No social concerns were identified as barriers to patients care. History was provided by the Patient. Patient appears to have chest pain symptoms bringing him to the ER. He has a recent significant cardiac history.. IV access was established and labs were obtained. Case was discussed with my attending who remained involved in care decision making. An order was placed for continuous cardiac monitoring. The monitor shows a paced rate of 60 bpm. Patient's blood work is as above and was reviewed. He does not have a significant elevated white blood cell count, gross anemia, bandemia, or significant electrolyte imbalance. Transaminases not diagnostic. Troponin x 1 negative. Escalation of care was considered, and felt to be necessary at this time. The cause of his chest pain is not distinct and he has significant recent cardiac history. Case was discussed with the on-call hospitalist team who agreed to evaluate the patient here in the ER. Please see their dictation for further patient course, plan, and disposition. The chart was completed utilizing [employer] Speech Voice Recognition Software. Grammatical errors, random word insertions, pronoun errors, and incomplete sentences are an occasional consequence of this system due to software limitations, ambient noise, and hardware issues. Any formal questions or concerns about the content, text, or information contained within the body of this dictation should be directly addressed to the provider for clarification. Impression & Plan Left-sided chest pain, History of ventricular tachycardia Discharge Plan Visit Data Chief Complaint: Cardiac Assessment Stated Complaint: HEART HURTS ED Provider: Tao Caro ED Midlevel Provider: Johnny Rojas Discharge Problem: Left-sided chest pain, History of ventricular tachycardia Patient Disposition: Admitted As Inpatient Condition: Good Discharge Instructions Interventions: ED Discharge Assessment Last Done: 04/16/25 04:03
[2025-04-16 02:56] LABS: INR 1.0 (0.9-1.1); Partial Thromboplastin Time 26 Seconds (21-31); Prothrombin Time 10.3 Seconds (9.0-12.0)
--- NOTE | 2025-04-16 03:20 | History & Physical Report ---
Date of Service April 16, 2025 Assessment & Plan (1) Chest pain: Plan: Assessment and plan below following discussion of case with ED provider and reviewing patient history/pertinent normal/abnormal diagnostic test results. Atypical chest pain Possibly from uncontrolled hypertension Rule out PE hx nonocclusive CAD VT status post cardioversion status post ICD PAF, post cardioversion from last confinement hyperlipidemia, on statin Rx aortic root aneurysm/proximal ascending thoracic aorta enlargement pulmonary hypertension as per records CVA prediabetes, hemoglobin A1c of 5.10 May 2024 GERD, stable on PPI OBS Admit to PCU CT chest PE study Add amlodipine to losartan and beta-john Cardiology consult to evaluate chest pain if PE study negative DVT prophylaxis. Lovenox subcu Full code Patient requesting updates providers. Ms. Leeanne Sanford, contact #[phone]. Text document was generated using [employer] voice recognition software. It may contain grammatical or spelling errors. Kindly contact undersigned for clarification of any documentation item in question. History of Present Illness Chief Complaint: Chest pain Primary Care Provider: Vinny Montero, History obtained from patient, family, and records. Medical history significant for nonocclusive CAD, VT status post cardioversion status post ICD, PAF, HTN, hyperlipidemia, aortic root aneurysm/proximal ascending thoracic aorta enlargement, pulmonary hypertension as per records, CVA, prediabetes, GERD. Recent confinement 2 weeks ago for NSTEMI. Patient presented with VT. Underwent cardioversion at the ER. Transient AF noted post cardioversion. Nonocclusive CAD on diagnostic cardiac catheterization. AICD placed prior to discharge. Patient had substernal pain going to his throat around 6 PM last night. Somewhat grabbing as per patient. Different from reflux. No cough or SOB. Compliant with home medications. Blood pressure somewhat elevated at home, SBP of 140s at least. Denies headache. Denies unusual stress or exertion. Occasional tapping sensation from pacemaker device which he has not ate since placement from last confinement. SBP 180s upon arrival at the ER. Chest pain not relieved by nitroglycerin administration at the ER. 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 Allergies Allergy/AdvReac Type Severity Reaction Status Date / Time aspirin [From Percodan] Allergy Intermediate Itching Verified 04/16/25 01:06 lisinopril Allergy Mild Cough Verified 04/16/25 01:06 oxycodone Allergy Mild itching Verified 04/16/25 01:06 Home Medications Medication Instructions Recorded Confirmed Type aspirin 81 mg tablet 81 mg PO HS 10/03/20 04/16/25 History atorvastatin 20 mg tablet 20 mg PO HS 10/03/20 04/16/25 History melatonin 10 mg tablet 10 mg PO HS 10/03/20 04/16/25 History multivitamin 1 tab PO QAM 10/03/20 04/16/25 History omeprazole 20 mg capsule,delayed 20 mg PO QAM 10/03/20 04/16/25 History release trazodone 100 mg tablet 100 mg PO HS 10/03/20 04/16/25 History meclizine 25 mg tablet 25 mg PO TID PRN dizziness #30 tabs 06/14/22 04/16/25 Rx cholecalciferol (vitamin D3) 50 50 mcg PO DAILY 04/03/25 04/16/25 History mcg (2,000 unit) tablet fluorouracil 5 % topical cream 1 applic topical BID 04/03/25 04/16/25 History montelukast 10 mg tablet 10 mg PO QAM 04/03/25 04/16/25 History losartan 100 mg tablet 100 mg PO QAM 04/16/25 04/16/25 History metoprolol succinate 50 mg 50 mg PO QAM 04/16/25 04/16/25 History tablet,extended release 24 hr (Toprol XL) Past Med/Surg History Problem List (Updated 04/04/25 @ 11:31 by Gualberto Boswell DO) Paroxysmal ventricular tachycardia Coronary artery calcification Non-ST elevation (NSTEMI) myocardial infarction Dizziness (Acute) New onset a-fib (Acute) History of cardioversion (Acute) Chest pain (Acute) Ventricular tachycardia (Acute) H/O bilateral hip replacements Hypertension Prediabetes Dyslipidemia Cervical stenosis of spinal canal Encounter for pre-operative examination History of esophagogastroduodenoscopy (EGD) GERD (gastroesophageal reflux disease) (Chronic) Osteoarthritis (Chronic) Medical History Aortic root aneurysm Nausea and vomiting after administration of anesthetic agent Ocular migraine "a couple times a year" Surgical History History of mandibular surgery (~1984) to repair cartilage tear History of colonoscopy S/P epidural steroid injection Family History Daughter Leukemia Sister Multiple sclerosis Mother Hypertension Other No family history of adverse response to anesthesia Social History Smoking Status: Never smoker Second Hand Exposure: No; Do You Dip or Chew Tobacco: No; Hx Alcohol Use: Yes Alcohol type: hard liquor Alcohol Intake Frequency: 2-4 x/Month Hx Substance Use: No Preferred Language: Turkish Communication Ability: Effective Utilization Review Rn Required: No Beliefs That Will Affect Care: None Current Living Situation: Spouse Current Living Situation Comment: Lives w/ spouse at home Feels Safe at Home: Yes Safety Concerns: Feels Safe At This Time Assistive Devices: None Review of Systems Review of Systems: As per HPI, all other systems reviewed and negative Physical Exam Physical Exam: GENERAL: Slightly uncomfortable, obese, no respiratory distress SKIN: Normal color, warm HEENT: Partial alopecia, pink palpebral conjunctivae, no ptosis, moist buccal mucosa NECK : Supple, no tenderness CHEST : CTA, no tenderness HEART : RRR, no obvious murmurs ABDOMEN: Some distention, nontender EXTREMITIES : No LE swelling/tenderness, palpable pulses, no other conspicuous deformities noted NEUROLOGIC : Coherent, no facial asymmetry, no other gross focality Results & Data Results & Data Vital Signs (Past 12 Hours) Vital Signs Temp Pulse Resp BP Pulse Ox O2 Del Method 04/16/25 03:00 60 16 164/106 H 92 04/16/25 02:30 61 14 154/110 H 92 04/16/25 02:00 61 19 150/104 H 94 04/16/25 01:30 61 16 141/98 H 92 04/16/25 01:00 60 18 145/108 H 94 04/16/25 00:56 Room Air 04/16/25 00:50 60 04/16/25 00:41 99 Room Air 04/16/25 00:37 36.7 C 61 18 180/103 H 95 Room Air Laboratory Results Laboratory Results WBC 7.57 K/ul (4.8-10.8) 04/16/25 02:07 RBC 4.24 M/uL (4.70-6.10) L 04/16/25 02:07 Hgb 14.0 g/dL (14.0-18.0) 04/16/25 02:07 Hct 40.5 % (42.0-52.0) L 04/16/25 02:07 MCV 95.5 fL (80.0-100.0) 04/16/25 02:07 MCH 33.0 pg (25.0-34.0) 04/16/25 02:07 MCHC 34.6 g/dL (32.0-36.0) 04/16/25 02:07 RDW Std Deviation 44.0 fL (36.4-46.3) 04/16/25 02:07 RDW Coeff of Roney 12.5 % (11.5-14.5) 04/16/25 02:07 Plt Count 156 K/uL (130-400) 04/16/25 02:07 MPV 9.8 fL (9.4-12.4) 04/16/25 02:07 Immature Gran % (Auto) 0.7 % 04/16/25 02:07 Neut % (Auto) 65.8 % 04/16/25 02:07 Lymph % (Auto) 21.8 % 04/16/25 02:07 [place] % (Auto) 8.7 % 04/16/25 02:07 Eos % (Auto) 2.2 % 04/16/25 02:07 Baso % (Auto) 0.8 % 04/16/25 02:07 Neut # (Auto) 4.98 K/uL (1.40-6.50) 04/16/25 02:07 Lymph # (Auto) 1.65 K/uL (1.20-3.40) 04/16/25 02:07 [place] # (Auto) 0.66 K/uL (0.11-0.59) H 04/16/25 02:07 Eos # (Auto) 0.17 K/uL (0.00-0.50) 04/16/25 02:07 Baso # (Auto) 0.06 K/uL (0.00-0.20) 04/16/25 02:07 Immature Gran # (Auto) 0.05 K/uL (0.01-0.20) 04/16/25 02:07 PT 10.3 Seconds (9.0-12.0) 04/16/25 02:07 INR 1.0 (0.9-1.1) 04/16/25 02:07 APTT 26 Seconds (21-31) 04/16/25 02:07 PTT Ratio 1.0 04/16/25 02:07 Sodium 140 mmol/L (136-145) 04/16/25 02:07 Potassium 3.9 mmol/L (3.5-5.1) 04/16/25 02:07 Chloride 106 mmol/L (98-107) 04/16/25 02:07 Carbon Dioxide 26 mmol/L (21-32) 04/16/25 02:07 Anion Gap 8 (3-11) 04/16/25 02:07 BUN 16 mg/dl (6-23) 04/16/25 02:07 Creatinine 1.01 mg/dl (0.6-1.4) 04/16/25 02:07 Est Cr Clr Drug Dosing 85.3 ml/min 04/16/25 02:07 eGFR 79.02 04/16/25 02:07 BUN/Creatinine Ratio 15.8 (10-20) 04/16/25 02:07 Glucose 104 mg/dl (70-99(Fasting)) H 04/16/25 02:07 Calcium 8.9 mg/dl (8.6-10.3) 04/16/25 02:07 Total Bilirubin 1.3 mg/dl (0.2-1.0) H 04/16/25 02:07 AST 25 U/L (13-39) 04/16/25 02:07 ALT 19 U/L (7-52) 04/16/25 02:07 Alkaline Phosphatase 66 U/L (34-104) 04/16/25 02:07 Troponin I High Sens 8.2 pg/ml (0-20) 04/16/25 02:07 Total Protein 6.2 gm/dl (6.0-8.3) 04/16/25 02:07 Albumin 4.0 gm/dl (3.4-5.0) 04/16/25 02:07 Globulin 2.2 gm/dl (2.5-4.0) L 04/16/25 02:07 Albumin/Globulin Ratio 1.8 (0.9-2) 04/16/25 02:07 Lipase 42 U/L (11-82) 04/16/25 02:07 Impressions Chest X-Ray 04/16/25 00:41 EXAM: XR chest 1V portable CLINICAL HISTORY: Chest pain, nonspecific. TECHNIQUE: An X-ray image of the chest is obtained in AP projection. COMPARISON: 04/05/2025 X-ray. FINDINGS: Pulmonary Parenchyma: Slight regression of the previously noted right lower lung zone paracradiac/hilar opacities. Still seen left lower lung zone faint opacity that may be due to the overlap of the soft tissue. No evidence of collapse. No evidence of pleural effusion or pleural thickening. Heart and Mediastinum: Stable enlarged cardiac size. No hilar or mediastinal lymphadenopathy. Still seen well placed left-sided cardiac defibrillator. Stable tortuosity of the aorta. Bony Thorax: Bony thorax appears intact without fractures or deformities. Stable degenerative changes of the scanned spine. Stable lower cervical disc cages. Soft Tissues: EKG leads projected over the chest wall. Otherwise, the soft tissues overlying the chest wall are unremarkable. IMPRESSION: 1. No acute cardiopulmonary abnormalities are identified. 2. Slight regression of the previously noted right lower lung zone paracradiac/hilar opacities that could represent an inflammatory/infectious process or pulmonary congestion that needs clinical correlation. Electronically signed by Han Red 04-16-2025 02:22 AM Diagnostic Findings EKG as per my interpretation : rate 65, paced rhythm
[2025-04-16 03:35] LABS: Magnesium 1.9 mg/dl (1.7-2.4)
[2025-04-16] MEDS ORDERED: LORazepam 0.5 MG TAB PO PRN (03:57)
[2025-04-16] MEDS ORDERED: PROMETHAZINE 6.25 MG/50.25 ML BAG IV PRN (03:57)
[2025-04-16] MEDS: NITROGLYCERIN SL 0.4 MG/TAB TAB SL STA (04:14)
[2025-04-16] MEDS: MAGNESIUM SULFATE / D5W 1 GM/100 ML BAG IV STA (04:41)
[2025-04-16] MEDS: POTASSIUM CHLORIDE 10 MEQ TABCR PO STA (04:41)
[2025-04-16] MEDS: OPTIRAY 320 125ml IV ONE (04:58)
[2025-04-16] MEDS: HYDROCODONE/ACETAMOPHEN 5/325MG TAB PO STA (05:26)
[2025-04-16] MEDS: SODIUM CHLORIDE 0.9% 1,000 ML IV ONE (05:28)
--- NOTE | 2025-04-16 06:04 | CT Scan Report ---
EXAM: CT angio chest PE protocol CLINICAL HISTORY: Chest pain. TECHNIQUE: Contiguous 3.[address] angiographic images of the chest were acquired with the administration of intravenous contrast. Coronal and sagittal reconstructions were obtained. Contrast was administered for post-contrast images. One of these 3D techniques was utilized: Maximum Intensity Pixel (MIP), 3D Reconstructed Images, Volume Rendered Images, and Surface Shaded Rendering. One of the following dose reduction techniques was utilized for this exam: Automated exposure control, adjustment of the mA and/or kV according to patient size, and use of iterative reconstruction. COMPARISON: 04/03/2025 CT. FINDINGS: Pulmonary Arteries: Pulmonary arteries are normal in size and opacification. No evidence of pulmonary embolism. No stenosis or filling defects. Aorta: Mild mural atherosclerotic aortic calcification. Mildly dilated aortic root measuring approximately 4.5 cm Superior Vena Cava (SVC) and Inferior Vena Cava (IVC): Normal opacification and caliber. No evidence of thrombus or obstruction. Coronary Arteries: Coronary arteries are well-opacified. No significant stenosis or atherosclerotic changes. Mediastinum: Few prevascular subcentimetric lymph nodes. Normal appearance of the thymus. Heart: Cardiomegaly. No pericardial effusion. The cardiac pacemaker device with its electrode terminals is in situ. Lungs: Posterior basal subpleural reticulations at both lower lung lobes, likely basal congestion. No evidence of consolidation, nodules, or masses. No pleural effusion or thickening. Bones: No fractures or lytic/sclerotic lesions of the visualized bony structures. Normal alignment and bone density. Soft Tissues: Normal appearance of the visualized soft tissues. No abnormal masses or fluid collections. Small hepatic focal lesions are noted, Likely cysts. Further ultrasound/ triphasic CT is advised. IMPRESSION: 1. No CT evidence of pulmonary embolism. 2. Posterior basal subpleural reticulations at both lower lung lobes, likely basal congestion. 3. Mildly dilated aortic root. 4. Interval no changes compared to prior study dated 04/03/2025. Electronically signed by Han Red 04-16-2025 06:04 AM
[2025-04-16] MEDS: ACETAMINOPHEN 1,000 MG/100 ML VIAL IV STA (07:20)
[2025-04-16] MEDS: LOSARTAN POTASSIUM 50 MG TAB PO SCH (07:50)
[2025-04-16] MEDS: METOPROLOL SUCC 50MG EXT REL TAB PO SCH (07:50)
--- NOTE | 2025-04-16 09:45 | Communication Note ---
Date of Service: April 16, 2025 Patient seen and examined this Am. please see H&P from earlier today for full details. His chest pain is still present. worse with exertion however it is reproducible with palpation. His trops are normal. CTA without PE. EKG without ST segment changes. He just had a LHC on 04/04 which showed moderate non obstructive CAD to LAD. He states his CP gets better when sitting up but with normal trops and no rub, doubtful carditis. ICD looks ok. Unclear etiology to his chest pain. Appreciate cardio input. NPO until cardio evaluates. He was placed on O2 in ED for comfort, take off now.
[2025-04-16] MEDS: MULTIVITAMIN TAB PO SCH (09:58)
[2025-04-16] MEDS: MONTELUKAST SODIUM 10 MG TABLET PO SCH (09:58)
[2025-04-16] MEDS: ENOXAPARIN INJ 40 MG/0.4 ML SYR SQ SCH (09:58)
[2025-04-16] MEDS: MoRPHine SULFATE 4 MG/ML 1 ML CARP\\VIAL IV PRN (10:04)
--- NOTE | 2025-04-16 10:27 | XCELERA ---
[id number]
--- NOTE | 2025-04-16 10:30 | Cardiology Consultation ---
Date of Consultation April 16, 2025 Assessment & Plan (1) Pericarditis: 70-year-old male with a history of recent non-ST segment elevation myocardial infarction in the setting of nonobstructive coronary artery disease and sustained ventricular tachycardia (status post recent cardiac catheterization an d dual-chamber [employer] AICD placement in early April,), normal LVEF presents with recurrent chest discomfort. Discomfort is of 5 days in duration although he notes that there has been some degree of an exertional component, last night it was worse when he was trying to lay down supine in bed when he could not get comfortable. Discomfort reproduced with lying supine in bed today. Despite normal CRP and ESR levels this hospital stay EKG, echocardiogram, clinical presentation suggestive of pericarditis perhaps related to inflammatory reaction from his recent AICD implantation. -Patient is a poor candidate for nonsteroidal anti-inflammatory therapy due to his underlying coronary heart disease, hypertension. -Start colchicine 0.6 mg twice daily with plans to complete a 3-month course. -Patient was ill in appearance at the time of my assessment. Blood pressure elevated, likely due to ongoing generalized discomfort. Proceed with Solu- Medrol 40 mg IV x 1 now and prednisone 20 mg daily to start with tapering dose, first dose tomorrow 04/17/2025. -Add proton pump inhibitor for GI prophylaxis. (2) Ventricular tachycardia: History of sustained ventricular tachycardia. Sinus rhythm noted on telemetry Remote device interrogation performed and reviewed with [facility] medical interpreter with normal findings, normal device function, no recurrent arrhythmia. Continue metoprolol succinate 50 mg daily. (3) CAD (coronary artery disease): High sensitive troponin negative x 2. Recent cardiac catheterization as noted in the HPI. Continue aspirin 81 mg daily. (4) Hypertension: Anticipate blood pressure will improve as pain control achieved. Continue metoprolol, losartan, amlodipine. (5) Dyslipidemia: Continue atorvastatin 20 mg daily I spent a total of 80 minutes on the date of service in preparation, delivery, and documentation of the care provided to this patient, excluding any time spent in the performance of separately billed services. Charlie Albarado DO History of Present Illness Reason for Consultation: chest pain Requesting Physician: Dr Suresh Attending Physician: Erasto Luke DO History of Present Illness Mr Sanford Is a 70-year-old male seen in cardiology consultation for the evaluation of chest discomfort. His recent history dates back to 04/03/2025 when he presented to the emergency department after developing substernal chest pressure while hunting. He was found to be in sustained ventricular tachycardia with a ventricular rate of 244 bpm and underwent emergent external cardioversion in the emergency department. Troponin subsequently increased to 961 PG per mL. 04/04/2025 he underwent cardiac catheterization with findings of intermediate stenosis of the mid left anterior descending coronary artery and minimal nonobstructive disease elsewhere. The LAD was evaluated with IFR and was found to not be hemodynamically significant with Pd/Pa value of 0.97. He was therefore treated medically. He subsequently underwent implantation of a dual-chamber [employer] medical AICD on 04/05/2025 and was discharged. He notes that since approximately 5 days ago he has been having occasional chest discomfort mostly noted when he would get up and move around. He had been [facility] [employer] [facility] and was sitting in the bleachers he did not have any discomfort yesterday but last evening when he tried to go to sleep he could not get comfortable and ultimately sought treatment in the emergency department. I sensitive troponin has been negative x 2 with measurements of 8.2 and 7.5 PG per mL. EKG x 2 without acute change with the exception of subtle J-point elevation limited to leads I and aVL on tracing performed this morning. During my assessment, he had ongoing discomfort. When I changed the position of his bed to have him lie supine the discomfort was worsened to a severe degree and was reproduced with deep inspiration and felt better when he sat up. He was ill in appearance. Allergies Allergy/AdvReac Type Severity Reaction Status Date / Time aspirin [From Percodan] Allergy Intermediate Itching Verified 04/16/25 01:06 lisinopril Allergy Mild Cough Verified 04/16/25 01:06 oxycodone Allergy Mild itching Verified 04/16/25 01:06 Home Medications Medication Instructions Recorded Confirmed Type aspirin 81 mg tablet 81 mg PO HS 10/03/20 04/16/25 History atorvastatin 20 mg tablet 20 mg PO HS 10/03/20 04/16/25 History melatonin 10 mg tablet 10 mg PO HS 10/03/20 04/16/25 History multivitamin 1 tab PO QAM 10/03/20 04/16/25 History omeprazole 20 mg capsule,delayed 20 mg PO QAM 10/03/20 04/16/25 History release trazodone 100 mg tablet 100 mg PO HS 10/03/20 04/16/25 History meclizine 25 mg tablet 25 mg PO TID PRN dizziness #30 tabs 06/14/22 04/16/25 Rx cholecalciferol (vitamin D3) 50 50 mcg PO DAILY 04/03/25 04/16/25 History mcg (2,000 unit) tablet fluorouracil 5 % topical cream 1 applic topical BID 04/03/25 04/16/25 History montelukast 10 mg tablet 10 mg PO QAM 04/03/25 04/16/25 History losartan 100 mg tablet 100 mg PO QAM 04/16/25 04/16/25 History metoprolol succinate 50 mg 50 mg PO QAM 04/16/25 04/16/25 History tablet,extended release 24 hr (Toprol XL) Patient History Medical History Aortic root aneurysm Nausea and vomiting after administration of anesthetic agent Ocular migraine "a couple times a year" Surgical History History of mandibular surgery (~1984) to repair cartilage tear History of colonoscopy S/P epidural steroid injection Family History Daughter Leukemia Sister Multiple sclerosis Mother Hypertension Other No family history of adverse response to anesthesia Social History Smoking Status: Never smoker Second Hand Exposure: No; Do You Dip or Chew Tobacco: No; Hx Alcohol Use: Yes Alcohol type: hard liquor Alcohol Intake Frequency: 2-4 x/Month Hx Substance Use: No Preferred Language: Thai Communication Ability: Effective Combine Operator Required: No Beliefs That Will Affect Care: None Current Living Situation: Spouse Current Living Situation Comment: Lives w/ spouse at home Feels Safe at Home: Yes Safety Concerns: Feels Safe At This Time Assistive Devices: None Review of Systems Review of Systems: All systems reviewed & are unremarkable except as noted in HPI & below Physical Exam Physical Exam: Temp Pulse Resp BP Pulse Ox O2 Del Method O2 Flow Rate 36.2 C L 62 18 153/100 H 94 Room Air 1 04/16/25 07:29 04/16/25 10:15 04/16/25 07:29 04/16/25 10:15 04/16/25 10:15 04/16/25 10:15 04/16/25 07:29 General: no acute distress and stated age Eyes: conjunctiva are pink and non-injected, sclera clear Neck: normal jugular venous pulse, no hepatojugular reflux Chest: normal shape and normal respiratory effort -Well-healed left infraclavicular AICD s ite, incision healing well, clean dry and intact, no erythema or drainage. Lungs: clear to auscultation and percussion Cardiac Exam: - regular heart sounds, no murmurs, rubs, or gallops, no jugular venous distention Abdomen: abdomen soft, non-tender, no abnormal masses and no hepatosplenomegaly Musculoskeletal: no gait disturbance, no weakness Extremities: no edema and no cyanosis Neuro:awake, conversant, follows commands, no focal motor deficits Psych: appropriate affect and insight. Results & Data Vital Signs (Past 12 Hours) Vital Signs Temp Pulse Pulse Pulse Resp BP BP 04/16/25 10:15 62 04/16/25 07:29 36.2 C L 60 18 04/16/25 05:22 36.4 C L 60 17 04/16/25 04:50 60 130/81 04/16/25 04:41 36.3 C L 67 16 145/86 H 04/16/25 04:36 60 04/16/25 04:03 04/16/25 03:00 60 16 164/106 H 04/16/25 02:30 61 14 154/110 H 04/16/25 02:00 61 19 150/104 H 04/16/25 01:30 61 16 141/98 H 04/16/25 01:00 60 18 145/108 H 04/16/25 00:56 04/16/25 00:50 60 04/16/25 00:41 04/16/25 00:37 36.7 C 61 18 180/103 H BP Pulse Ox O2 Del Method O2 Flow Rate 04/16/25 10:15 153/100 H 94 Room Air 04/16/25 07:29 158/108 H 96 Nasal Cannula 1 04/16/25 05:22 151/88 H 98 Nasal Cannula 2 04/16/25 04:50 94 Nasal Cannula 1 04/16/25 04:41 92 Room Air 04/16/25 04:36 04/16/25 04:03 Room Air 04/16/25 03:00 92 04/16/25 02:30 92 04/16/25 02:00 94 04/16/25 01:30 92 04/16/25 01:00 94 04/16/25 00:56 Room Air 04/16/25 00:50 04/16/25 00:41 99 Room Air 04/16/25 00:37 95 Room Air Laboratory Results Cardiac Enzymes 04/16/25 04/16/25 Range/Units 02:07 05:22 AST 25 (13-39) U/L Troponin I High Sens 8.2 7.5 (0-20) pg/ml Coagulation 04/16/25 Range/Units 02:07 PT 10.3 (9.0-12.0) Seconds APTT 26 (21-31) Seconds CBC 04/16/25 Range/Units 02:07 WBC 7.57 (4.8-10.8) K/ul RBC 4.24 L (4.70-6.10) M/uL Hgb 14.0 (14.0-18.0) g/dL Hct 40.5 L (42.0-52.0) % Plt Count 156 (130-400) K/uL Neut # (Auto) 4.98 (1.40-6.50) K/uL Lymph # (Auto) 1.65 (1.20-3.40) K/uL [place] # (Auto) 0.66 H (0.11-0.59) K/uL Eos # (Auto) 0.17 (0.00-0.50) K/uL Baso # (Auto) 0.06 (0.00-0.20) K/uL Comprehensive Metabolic Panel 04/16/25 Range/Units 02:07 Sodium 140 (136-145) mmol/L Potassium 3.9 (3.5-5.1) mmol/L Chloride 106 (98-107) mmol/L Carbon Dioxide 26 (21-32) mmol/L BUN 16 (6-23) mg/dl Creatinine 1.01 (0.6-1.4) mg/dl Glucose 104 H (70-99(Fasting)) mg/dl Calcium 8.9 (8.6-10.3) mg/dl AST 25 (13-39) U/L ALT 19 (7-52) U/L Alkaline Phosphatase 66 (34-104) U/L Total Protein 6.2 (6.0-8.3) gm/dl Albumin 4.0 (3.4-5.0) gm/dl Diagnostic Findings EKG performed today 04/16/2025 at 8:28 AM and interpret independently: Sinus rhythm with atrial pacing, pitka's point QRS complexes, nonspecific IVCD, left ventricular hypertrophy by voltage criteria, subtle J-point elevation in the lateral leads I and aVL. -Compared to the previous tracing dated 04/16/2025 at 12:44 AM, the artifact noted at the time of that tracing has resolved. - Compared to the previous tracing dated 04/04/2025, subtle J-point elevation in the high lateral leads I and aVL is new Summary of transthoracic echocardiogram performed 04/16/2025 and reviewed/interpreted independently: The study is technically adequate for the evaluation of the referral indication. There is moderate concentric left ventricular hypertrophy. No regional wall motion abnormalities noted. Left ventricular systolic function is normal. Left Ventricular Ejection Fraction = 55-60%. The right ventricle is normal in size and function. There is mild tricuspid regurgitation. The aortic root is mildly dilated, 4 cm. The proximal ascending aorta is not visualized adequately enough to allow for measurement. There is a trivial degree of pericardial fluid adjacent to the right ventricular free wall. Tamponade is absent. Compared to the images obtained at the time of the previous study dated 04/04/2025, there has been interval placement of a dual-chamber AICD. There is now a trace amount of pericardial fluid, noted adjacent to the right ventricular free wall. Summary of radiology report of CT angiogram chest, performed 04/16/2025: 1. No CT evidence of pulmonary embolism. 2. Posterior basal subpleural reticulations at both lower lung lobes, likely basal congestion. 3. Mildly dilated aortic root. 4. Interval no changes compared to prior study dated 04/03/2025. Coding Level of Care Code 23348 IN/OBS CONSULT LVL 5,80M Diagnoses Pericarditis I31.9 Ventricular tachycardia I47.20 CAD (coronary artery disease) I25.10 Essential hypertension I10 Hypertension type: essential hypertension Dyslipidemia E78.5 (4) Hypertension Hypertension type: essential hypertension Qualified Code(s): I10 - Essential (primary) hypertension
[2025-04-16] MEDS: COLCHICINE 0.6 MG TAB PO SCH (11:45)
[2025-04-16] MEDS: HYDROCODONE/ACETAMOPHEN 5/325MG TAB PO PRN (11:55)
[2025-04-16] MEDS: NITROGLYCERIN 2% OINTMENT 30GM TUBE EXT SCH (13:37)
[2025-04-16] MEDS: KETOROLAC TROMETHAMINE 15 MG/ML VIAL IV PRN (14:06)
[2025-04-16] MEDS: MELATONIN 3 MG TAB PO PRN (20:27)
[2025-04-16] MEDS: ASPIRIN 81 MG ECTAB PO SCH (20:28)
[2025-04-16] MEDS: ATORVASTATIN 20 MG TAB PO SCH (20:29)
[2025-04-17 06:13] LABS: Hematocrit (blood only) 33.9 % (42.0-52.0); Hemoglobin 12.1 g/dL (14.0-18.0); Immature Granulocytes # (auto) 0.05 K/uL (0.01-0.20); Immature Granulocytes % (auto) 0.4 %; Mean Corpuscular Hemoglobin 33.9 pg (25.0-34.0); Mean Corpuscular Volume 95.0 fL (80.0-100.0); Platelet Count 148 K/uL (130-400); RDW Standard Deviation 42.5 fL (36.4-46.3); Red Blood Count 3.57 M/uL (4.70-6.10); White Blood Count 12.83 K/ul (4.8-10.8)
[2025-04-17 06:29] LABS: Anion Gap 7.0 (3-11); Blood Urea Nitrogen 24.0 mg/dl (6-23); Calcium 8.8 mg/dl (8.6-10.3); Carbon Dioxide 27.0 mmol/L (21-32); Chloride 103.0 mmol/L (98-107); Creatinine Clr Calc Pharmacy 71.6 ml/min; Glucose 134.0 mg/dl (70-99(Fasting)); Potassium 4.1 mmol/L (3.5-5.1); Sodium 137.0 mmol/L (136-145)
[2025-04-17] MEDS: predniSONE 20 MG TAB PO SCH (09:10)
--- NOTE | 2025-04-17 12:53 | Cardiology Progress Note ---
Date of Service April 17, 2025 Assessment & Plan (1) Pericarditis: Plan: 70-year-old male with a history of recent non-ST segment elevation myocardial infarction in the setting of nonobstructive coronary artery disease and sustained ventricular tachycardia (status post recent cardiac catheterization and dual-chamber [employer] AICD placement in early April,), normal LVEF presents with recurrent chest discomfort. Discomfort is of 5 days in duration although he notes that there has been some degree of an exertional component, last night it was worse when he was trying to lay down supine in bed when he could not get comfortable. Discomfort reproduced with lying supine in bed today. Despite normal CRP and ESR levels this hospital stay EKG, echocardiogram, clinical presentation suggestive of pericarditis perhaps related to inflammatory reaction from his recent AICD implantation. -Patient is a poor candidate for nonsteroidal anti-inflammatory therapy due to his underlying coronary heart disease, hypertension. -Start colchicine 0.6 mg twice daily with plans to complete a 3-month course. -Patient was ill in appearance at the time of my assessment. Blood pressure elevated, likely due to ongoing generalized discomfort. Proceed with Solu-Me drol 40 mg IV x 1 now and prednisone 20 mg daily to start with tapering dose, first dose tomorrow 04/17/2025. -Add proton pump inhibitor for GI prophylaxis. (2) Ventricular tachycardia: Plan: History of sustained ventricular tachycardia. Sinus rhythm noted on telemetry Remote device interrogation performed and reviewed with [place] biomedical specialist with normal findings, normal device function, no recurrent arrhythmia. Continue metoprolol succinate 50 mg daily. (3) CAD (coronary artery disease): Plan: High sensitive troponin negative x 2. Recent cardiac catheterization as noted in the HPI. Continue aspirin 81 mg daily. (4) Hypertension: Plan: Anticipate blood pressure will improve as pain control achieved. Continue metoprolol, losartan, amlodipine. (5) Dyslipidemia: Plan: Continue atorvastatin 20 mg daily I spent a total of 80 minutes on the date of service in preparation, delivery, and documentation of the care provided to this patient, excluding any time spent in the performance of separately billed services. Charlie Albarado, Plan 70-year-old male with recent hospitalization with sustained ventricular tachycardia. Cardiac catheterization without obstructive coronary disease underwent pacer defibrillator implantation. Presents now with persistent pain greater than 12 hours duration worse with movement and activity consistent with likely pericarditis. Component of esophageal spasm also noted. Symptoms responded to multiple factorial treatment. Continue colchicine Stop prednisone Ibuprofen 400 3 times daily x 3 days Continue pantoprazole Admission and Anticipated Discharge Date Admission Date: April 16, 2025 Subjective Patient seen and personally examined, chart, medications telemetry reviewed. Feels much improved this morning other than lightheadedness when moving from sitting to standing. No further chest pain or dysphagia no tachypalpitations No fevers or chills. Patient with extended episode of chest pain, positional yesterday but did respond to combination of proton pump inhibitor, corticosteroids and tramadol. Patient feels tramadol was most effective No arrhythmias on telemetry Review of Systems Review of Systems: All systems reviewed & are unremarkable except as noted in Subjective Physical Exam Constitutional: WD/WN, vitals as above Eyes: PERRL, conjunctivae normal, anicteric sclerae ENMT: external ear and nose normal, oropharynx normal Neck: trachea midline, no thyromegaly Respiratory: normal respiratory effort, lungs clear to auscultation Cardiovascular: RRR, no murmur, no edema Heart Sounds: no cardiac rub Extremities: no edema Chest (Breasts): Chest: + pacemaker (Pacer defibrillator insertion site left shoulder with healing incision. No) Gastrointestinal (Abdomen): normal bowel sounds, soft, nontender, no hepatosplenomegaly Musculoskeletal: no cyanosis or clubbing, extremities motor strength 5/5 Results & Data Vital Signs (Past 12 Hours) Vital Signs Temp Pulse Pulse Pulse Resp BP BP 04/17/25 11:16 36.7 C 59 L 18 119/76 04/17/25 07:39 36.7 C 66 18 108/62 04/17/25 07:19 60 04/17/25 05:16 63 102/65 04/17/25 02:14 36.5 C 61 16 112/68 04/17/25 01:25 118/69 Pulse Ox O2 Del Method 04/17/25 11:16 94 Room Air 04/17/25 07:39 90 Room Air 04/17/25 07:19 04/17/25 05:16 04/17/25 02:14 93 Room Air 04/17/25 01:25 Laboratory Results Laboratory Results - last 24 hr 04/17/25 05:49 WBC 12.83 H RBC 3.57 L Hgb 12.1 L Hct 33.9 L MCV 95.0 MCH 33.9 MCHC 35.7 RDW Std Deviation 42.5 RDW Coeff of [place] 12.1 Plt Count 148 MPV 10.4 Immature Gran % (Auto) 0.4 Neut % (Auto) 83.2 Lymph % (Auto) 8.6 [place] % (Auto) 7.6 Eos % (Auto) 0.0 Baso % (Auto) 0.2 Neut # (Auto) 10.68 H Lymph # (Auto) 1.10 L [place] # (Auto) 0.98 H Eos # (Auto) 0.00 Baso # (Auto) 0.02 Immature Gran # (Auto) 0.05 Sodium 137 Potassium 4.1 Chloride 103 Carbon Dioxide 27 Anion Gap 7 BUN 24 H Creatinine 1.20 Est Cr Clr Drug Dosing 71.6 eGFR 64.25 BUN/Creatinine Ratio 20.0 Glucose 134 H Calcium 8.8 Troponin I High Sens 6.0 PG Care Time/CCT Total # of Minutes Spent Total Time Spent with Patient: Total time spent is greater than 50% in coordination of care (as documented) at patient's floor/unit and/or counseling patient: Coding Level of Care Code 37660 SUB INP/OBS CARE 3/50MIN Diagnoses Pericarditis I31.9 Ventricular tachycardia I47.20 CAD (coronary artery disease) I25.10 Essential hypertension I10 Hypertension type: essential hypertension Dyslipidemia E78.5 (4) Hypertension Hypertension type: essential hypertension Qualified Code(s): I10 - Essential (primary) hypertension
--- NOTE | 2025-04-17 15:43 | Hospitalist Progress Note ---
Date of Service April 17, 2025 Assessment & Plan (1) Chest pain: Plan: 70M with PMH CAD s/p recent non-ST segment elevation myocardial infarction in the setting of nonobstructive coronary artery disease and sustained ventricular tachycardia AICD, normal LVEF presents with recurrent chest discomfort. #Chest pain -Continuous substernal chest pain, relieved with sitting up -Etiology not entirely clear but suspect myocarditis secondary to recent ICD implantation -Started on colchicine, prednisone and toradol 04/16 with almost immediately relief in chest pain -HS trops normal -CTA neg for PE -Leukocytosis secondary to steroids Plan -Continue colchicine for 3 months -Continue prednisone 20mg daily. Duration TBD -Cardiac monitoring for today -Toradol for pain -Anticipate DC home tomorrow #HTN -BP fluctuating -Low AM 04/17 due to nitro paste -Now elevated, likely from steroids -May have some permissive HTN while he is on steroids Plan -Norvasc 2.5, Losartan 100mg daily,Toprol 50mg daily #CAD -Recent NSTEMI -Continue ASA statin BB I spent a total of 51 minutes coordinating, documenting, and providing care for this patient excluding time spent in the performance of separately billed services. This included personally reviewing all current laboratories and imaging studies, medical reconciliation, outpatient chart review and discussion with specialists Admission and Anticipated Discharge Date Admission Date: April 16, 2025 Subjective Patient seen in AM and again just now. feeling well. his BP was slightly low in AM but now elevated. Eating ok. no more chest pain. d/w daughter in AM and now. Physical Exam Physical Exam: Vitals and labs reviewed General: Well appearing, NAD HEENT: EOMI, PERRLA Neck: Supple Cardiac: RRR no rubs gallops or murmurs Lungs: CTA no rhonchi wheezing or rales Abd: S NT ND BS positive : Deffered MSK: Full ROM. No obvious deformities Ext: No Edema cyanosis Skin: Warm, Dry Neuro: AOx3 No focal deficits. Psych: Normal Mood Results & Data Results & Data Vital Signs (Past 12 Hours) Vital Signs Temp Pulse Pulse Pulse Resp BP BP 04/17/25 15:17 36.7 C 59 L 18 161/95 H 04/17/25 14:14 60 04/17/25 11:16 36.7 C 59 L 18 119/76 12/15/25 07:39 36.7 C 66 18 108/62 04/17/25 07:19 60 04/17/25 05:16 63 102/65 Pulse Ox O2 Del Method 04/17/25 15:17 95 Room Air 04/17/25 14:14 04/17/25 11:16 94 Room Air 04/17/25 07:39 90 Room Air 04/17/25 07:19 04/17/25 05:16 Laboratory Results Abnormal lab results 04/17/25 Range/Units 05:49 WBC 12.83 H (4.8-10.8) K/ul RBC 3.57 L (4.70-6.10) M/uL Hgb 12.1 L (14.0-18.0) g/dL Hct 33.9 L (42.0-52.0) % Neut # (Auto) 10.68 H (1.40-6.50) K/uL Lymph # (Auto) 1.10 L (1.20-3.40) K/uL [place] # (Auto) 0.98 H (0.11-0.59) K/uL BUN 24 H (6-23) mg/dl Glucose 134 H (70-99(Fasting)) mg/dl
--- NOTE | 2025-04-17 22:33 | Electrocardiogram Report ---
Test Reason : Blood Pressure : */* mmHG Vent. Rate : 60 BPM Atrial Rate : 60 BPM P-R Int : 246 ms QRS Dur : 126 ms QT Int : 456 ms P-R-T Axes : * -63 -17 degrees QTcB Int : 456 ms Atrial-paced rhythm with prolonged AV conduction Left axis deviation Non-specific intra-ventricular conduction block Minimal voltage criteria for LVH, may be normal variant ( [place] product ) Abnormal ECG When compared with ECG of 16-Apr-2025 00:44, Non-specific intra-ventricular conduction block has replaced Right bundle branch block Confirmed by Edin Awad ([id number]) on 04/17/2025 10:33:11 PM Referred By: REFERRED SELF Confirmed By: Edin Awad
--- NOTE | 2025-04-17 22:33 | Electrocardiogram Report ---
Test Reason : Blood Pressure : */* mmHG Vent. Rate : 64 BPM Atrial Rate : 64 BPM P-R Int : 228 ms QRS Dur : 118 ms QT Int : 446 ms P-R-T Axes : -38 -66 24 degrees QTcB Int : 460 ms Atrial-paced rhythm with prolonged AV conduction Premature supraventricular complexes Left axis deviation Right bundle branch block Minimal voltage criteria for LVH, may be normal variant ( R in aVL ) Cannot rule out Anterior infarct , age undetermined Abnormal ECG When compared with ECG of 04-Apr-2025 05:30, Electronic atrial pacemaker has replaced Sinus rhythm Right bundle branch block is now Present Minimal criteria for Anterior infarct are now Present Confirmed by Edin Awad ([id number]) on 04/17/2025 10:32:50 PM Referred By: REFERRED SELF Confirmed By: Edin Awad
--- NOTE | 2025-04-18 10:43 | Hospitalist Progress Note ---
Date of Service April 18, 2025 Assessment & Plan (1) Chest pain: Plan: 70M with PMH CAD s/p recent non-ST segment elevation myocardial infarction in the setting of nonobstructive coronary artery disease and sustained ventricular tachycardia AICD, normal LVEF presents with recurrent chest discomfort. #Chest pain -Continuous substernal chest pain, relieved with sitting up -Etiology not entirely clear but suspect myocarditis secondary to recent ICD implantation vs esophageal pathology -Started on colchicine, prednisone and toradol 04/16 with almost immediately relief in chest pain yesterday -Unfortunately, chest pain recurred this AM, 04/18. Also endorsing odynophagia. History of esophageal spasms -HS trops normal -CTA neg for PE -Leukocytosis secondary to steroids Plan -Continue colchicine for 3 months -Continue toradol, switch to NSAIDs when ready for DC -Due to his history of esophageal spasms, odynophagia, will ask GI to evaluate -Will give trial of nitro paste again today as it seemed to help when given two days ago -NPO after MN in case GI wishes to do endoscopy tomorrow -Cardiac monitoring for today -Toradol for pain #HTN -BP fluctuating -Low 04/17 due to nitro paste which was DC on 04/17 -Now elevated, likely from steroids Plan -Norvasc 2.5, Losartan 100mg daily,Toprol 50mg daily -Appreciate cardio input #CAD -Recent NSTEMI -Continue ASA statin BB I spent a total of 55 minutes coordinating, documenting, and providing care for this patient excluding time spent in the performance of separately billed services. This included personally reviewing all current laboratories and imaging studies, medical reconciliation, outpatient chart review and discussion with specialists Admission and Anticipated Discharge Date Admission Date: April 16, 2025 Subjective Patient seen multiple times today. His chest pain returned early this AM. worse after eating. some pain with swallowing as well. no SOB. d/w during second examination Physical Exam Physical Exam: Vitals and labs reviewed General: Well appearing, NAD HEENT: EOMI, PERRLA Neck: Supple Cardiac: RRR no rubs gallops or murmurs Lungs: CTA no rhonchi wheezing or rales Abd: S NT ND BS positive : Deffered MSK: Full ROM. No obvious deformities Ext: No Edema cyanosis Skin: Warm, Dry Neuro: AOx3 No focal deficits. Psych: Normal Mood Results & Data Results & Data Vital Signs (Past 12 Hours) Vital Signs Temp Pulse Pulse Resp BP Pulse Ox O2 Del Method 04/18/25 08:18 36.5 C 66 16 180/97 H 94 Room Air 04/18/25 07:43 62 04/18/25 03:07 36.7 C 81 20 150/92 H 92 Room Air 04/17/25 23:07 36.9 C 57 L 20 125/80 95 Room Air 04/17/25 22:58 63
[2025-04-18 11:30] VITALS: RESP 18
--- NOTE | 2025-04-18 12:05 | Cardiology Progress Note ---
Date of Service April 18, 2025 Assessment & Plan (1) Pericarditis: Plan: 70-year-old male with a history of recent non-ST segment elevation myocardial infarction in the setting of nonobstructive coronary artery disease and sustained ventricular tachycardia (status post recent cardiac catheterization and dual-chamber [facility]o AICD placement in early April,), normal LVEF presents with recurrent chest discomfort. (2) Ventricular tachycardia: Plan: History of sustained ventricular tachycardia. 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 (3) CAD (coronary artery disease): Plan: High sensitive troponin negative x 2. Recent cardiac catheterization as noted in the HPI. Continue aspirin 81 mg daily. (4) Hypertension: Plan: Anticipate blood pressure will improve as pain control achieved. Continue metoprolol, losartan, amlodipine. (5) Dyslipidemia: Plan: Continue atorvastatin 20 mg daily Plan 70-year-old male with recent hospitalization with sustained ventricular tachycar cristian. Cardiac catheterization without obstructive coronary disease underwent pacer defibrillator implantation. Presents now with persistent pain greater than 12 hours duration worse with movement and activity consistent with likely pericarditis. Component of esophageal spasm also noted. Symptoms responded to multiple factorial treatment. Continue colchicine Stop prednisone Ibuprofen 400 3 times daily x 3 days Continue pantoprazole 04/18/2025 Intermittent chest pressure question dysphagia still present. Agree with GI evaluation especially with likely need for nonsteroidals, colchicine Discontinue prednisone Increase amlodipine to 2.5 mg twice per day for hypertension control possible additional aid with esophageal spasm concern Limited echocardiogram ordered for today Admission and Anticipated Discharge Date Admission Date: April 16, 2025 Subjective Patient was seen and personally examined. Notes "felt well last night" this morning chest pressure while swallowing mid chest. No fevers chills no tachypalpitations no arrhythmias. Blood pressure slightly higher. Review of Systems Review of Systems: All systems reviewed & are unremarkable except as noted in Subjective Physical Exam Constitutional: WD/WN, vitals as above no acute distress Eyes: PERRL, conjunctivae normal, anicteric sclerae ENMT: external ear and nose normal, oropharynx normal Neck: trachea midline, no thyromegaly Respiratory: normal respiratory effort, lungs clear to auscultation Cardiovascular: Rate/Rhythm: regular rate and regular rhythm Heart Sounds: normal S1 and normal S2; no cardiac rub Vessels: no JVD Extremities: no edema Chest (Breasts): Chest: + pacemaker (Pacer defibrillator incision intact left shoulder) Gastrointestinal (Abdomen): normal bowel sounds, soft, nontender, no hepatosplenomegaly Musculoskeletal: no cyanosis or clubbing, extremities motor strength 5/5 Results & Data Vital Signs (Past 12 Hours) Vital Signs Temp Pulse Pulse Pulse Resp BP BP 04/18/25 11:30 36.5 C 60 18 147/87 H 04/18/25 11:20 04/18/25 08:18 36.5 C 66 16 180/97 H 04/18/25 07:43 62 04/18/25 03:07 36.7 C 81 20 150/92 H Pulse Ox O2 Del Method 04/18/25 11:30 93 Room Air 04/18/25 11:20 Room Air 04/18/25 08:18 94 Room Air 04/18/25 07:43 04/18/25 03:07 92 Room Air PG Care Time/CCT Total # of Minutes Spent Total Time Spent with Patient: Total time spent is greater than 50% in coordination of care (as documented) at patient's floor/unit and/or counseling patient: Coding Level of Care Code 04699 SUB INP/OBS CARE 3/50MIN Diagnoses Pericarditis I31.9 Ventricular tachycardia I47.20 CAD (coronary artery disease) I25.10 Essential hypertension I10 Hypertension type: essential hypertension Dyslipidemia E78.5 (4) Hypertension Hypertension type: essential hypertension Qualified Code(s): I10 - Essential (primary) hypertension
--- NOTE | 2025-04-18 13:23 | XCELERA ---
[id number]
--- NOTE | 2025-04-18 13:50 | Gastrointestinal Consultation ---
Date of Consultation April 18, 2025 Assessment & Plan (1) Odynophagia: Plan Patient with reports of odynophagia as well as chest pain believed to be either related to esophageal issues vs myocarditis secondary to ICD placement. - increase protonix to 40mg bid. -Further recommendations to come with Supervising GI provider on medical rounds. Please see co-signature comments. Supervising Physician Co-Signing Physician Notes Chart reviewed discussed with GI PA, reviewed cardiology note. Patient with fairly recent non-STEMI SD. Placement of a AICD in early to April patient now having chest discomfort potentially pericarditis. Aggravated by laying flat which can be seen with pericarditis. GI is consulted due to this gentleman's history of esophageal problems. He states for 10 or more years he has had problems with swallowing. Especially pills or soft food. He has been told he has GERD in the past and is on chronic PPI therapy. States he feels his food go through. Sometimes feels as if it hangs and requires water to assist passage. He does have regurgitation type symptoms. He has been on long-term PPI therapy. He states this resolves his indigestion and burning that does not stop the swallowing issues and/or regurgitation. The swallowing issues can occur even with water mashed potatoes or small pills. Typically stricturing disease is mostly with meat or other solids less likely with soft foods. He states he will occasionally regurgitate previously and food, like cgewing cud. Symptoms not associated with weight loss. Differential includes esophageal dysmotility esophageal stricture. Achalasia Zenker's diverticulum. Not a great candidate for EGD at this point based on cardiac issues as noted above, do I think we can get some good information with an upper GI series and barium tablet. Reviewed with patient and the family at the bedside. Exam ordered for tomorrow History of Present Illness Reason for Consultation: odynophagia Requesting Physician: Erasto Luke DO Attending Physician: Eratso Luke DO History of Present Illness Patient is a 70 year old male who presented to the ED on 04/16 for evaluation of left-sided chest pain. The patient has an extensive recent cardiac history including V. tach with cardiac catheterization and subsequent pacemaker placement earlier this month. Patient had been doing very well after discharge, but he developed new symptoms with chest discomfort of 5/10. No lightheadedness or dizziness. No fevers or chills. Sometimes it felt like it was difficult to breathe. Etiology was suspected to be myocarditits secondary to recent ICD vs esophageal in origin. Patient was started on colechicine, prednisone, and toradol with relief of symptoms, but they returned the following day. he admits to a history of esophageal spasms and has noticed some odynophagia recently that started after he had taken a bite of chili that he tells me was too hot. he does not feel like he has issues with swallowing foods, but rather pills. he reports that he has had EGD and colonoscopy in the past, but is unsure of where this was done. I do not see any results in EMR. the remainder of the GI ros are unremarkable. 04/17/25 wbc 12.83, hgb 12.1, hct 33.9, plts 148, Na 137, K 4.1, BUN 24, Cr 1.2, 04/16/25 Chest CTA - 1. No CT evidence of pulmonary embolism. 2. Posterior basal subpleural reticulations at both lower lung lobes, likely basal congestion. 3. Mildly dilated aortic root. 4. Interval no changes compared to prior study dated 04/03/2025. Allergies Allergy/AdvReac Type Severity Reaction Status Date / Time aspirin [From Percodan] Allergy Intermediate Itching Verified 04/16/25 01:06 lisinopril Allergy Mild Cough Verified 04/16/25 01:06 oxycodone Allergy Mild itching Verified 04/16/25 01:06 Home Medications Medication Instructions Recorded Confirmed Type aspirin 81 mg tablet 81 mg PO HS 10/03/20 04/16/25 History atorvastatin 20 mg tablet 20 mg PO HS 10/03/20 04/16/25 History melatonin 10 mg tablet 10 mg PO HS 10/03/20 04/16/25 History multivitamin 1 tab PO QAM 10/03/20 04/16/25 History omeprazole 20 mg capsule,delayed 20 mg PO QAM 10/03/20 04/16/25 History release trazodone 100 mg tablet 100 mg PO HS 10/03/20 04/16/25 History meclizine 25 mg tablet 25 mg PO TID PRN dizziness #30 tabs 06/14/22 04/16/25 Rx cholecalciferol (vitamin D3) 50 50 mcg PO DAILY 04/03/25 04/16/25 History mcg (2,000 unit) tablet fluorouracil 5 % topical cream 1 applic topical BID 04/03/25 04/16/25 History montelukast 10 mg tablet 10 mg PO QAM 04/03/25 04/16/25 History losartan 100 mg tablet 100 mg PO QAM 04/16/25 04/16/25 History metoprolol succinate 50 mg 50 mg PO QAM 04/16/25 04/16/25 History tablet,extended release 24 hr (Toprol XL) Patient History Medical History Aortic root aneurysm Nausea and vomiting after administration of anesthetic agent Ocular migraine "a couple times a year" Surgical History History of mandibular surgery (~1984) to repair cartilage tear History of colonoscopy S/P epidural steroid injection Family History Daughter Leukemia Sister Multiple sclerosis Mother Hypertension Other No family history of adverse response to anesthesia Social History Smoking Status: Never smoker Second Hand Exposure: No; Do You Dip or Chew Tobacco: No; Hx Alcohol Use: Yes Alcohol type: hard liquor Alcohol Intake Frequency: 2-4 x/Month Hx Substance Use: No Preferred Language: Mexican Communication Ability: Effective Director Talent Required: No Beliefs That Will Affect Care: None Current Living Situation: Spouse Current Living Situation Comment: Lives w/ spouse at home Feels Safe at Home: Yes Safety Concerns: Feels Safe At This Time Assistive Devices: None Review of Systems Review of Systems: All systems reviewed & are unremarkable except as noted in HPI & below Physical Exam Constitutional: WD/WN, vitals as above Respiratory: normal respiratory effort, lungs clear to auscultation Cardiovascular: Rate/Rhythm: regular rate and regular rhythm Gastrointestinal (Abdomen): normal bowel sounds, soft, nontender, no hepatosplenomegaly Psychiatric: Orientation: alert and oriented x 3 Affect: euthymic affect Results & Data Vital Signs (Past 12 Hours) Vital Signs Temp Pulse Pulse Pulse Resp BP BP 04/18/25 11:30 97.7 F 60 18 147/87 H 04/18/25 11:20 04/18/25 08:18 97.7 F 66 16 180/97 H 04/18/25 07:43 62 04/18/25 03:07 98.1 F 81 20 150/92 H Pulse Ox O2 Del Method 04/18/25 11:30 93 Room Air 04/18/25 11:20 Room Air 04/18/25 08:18 94 Room Air 04/18/25 07:43 04/18/25 03:07 92 Room Air Coding Level of Care Code 16495 INT INP/OBS CARE 2/55MIN Diagnoses Odynophagia R13.10
--- NOTE | 2025-04-19 10:22 | Gastroenterology Progress Note ---
Date of Service April 19, 2025 Assessment & Plan (1) Odynophagia: Plan Patients UGI shown disordered motility. Since no stricture seen, would not pursue an EGD at this time given recent cardiac events. - recommend he be discharged on omeprazole 40mg daily. - would schedule an outpatient office visit in 3 months to assess how he does with this. - patient advised to take their time eating, taking small bites, chewing food swell, and using plenty of fluids with meals. Admission and Anticipated Discharge Date Admission Date: April 19, 2025 Supervising Physician Co-Signing Physician Notes Reviewed with patient and the upper GI findings. Predominantly esophageal dysmotility. There were no real medications for this. Some esophageal dysmotility however could be related to acid reflux. I would increase his PPI to 40 mg/day of omeprazole. Head of the bed elevation should be helpful to prevent nocturnal regurgitation which can also aggravate esophageal dysmotility. From a diet perspective softer foods may be of benefit. He needs to cut them small chew them well with water between bites. Patient tends to eat fast by his report. Slow down take his time. Can follow-up with GI in 3 months. At this point if he continues to have symptoms and he is further out from this acute arrhythmia pericarditis and non-STEMI MD could consider endoscopic evaluation at that time. Subjective Patient has been NPO. He notes he had some more esophageal pain last evening but that it seemed more positional in nature. It feels better if sitting still, but once he goes to move, especially to his side, that he notices it more. UGI 04/19/25 - 1. Disordered esophageal motility with trace reflux 2. Nonspecific mild gastric rugal fold thickening 3. Mild fold thickening within the duodenal bulb no new GI concerns. Review of Systems Review of Systems: All systems reviewed & are unremarkable except as noted in HPI & below Physical Exam Constitutional: WD/WN, vitals as above Respiratory: normal respiratory effort, lungs clear to auscultation Cardiovascular: Rate/Rhythm: regular rate and regular rhythm Gastrointestinal (Abdomen): normal bowel sounds, soft, nontender, no hepatosplenomegaly Psychiatric: Orientation: alert and oriented x 3 Affect: euthymic affect Results & Data Results & Data Vital Signs (Past 12 Hours) Vital Signs Temp Pulse Pulse Resp BP Pulse Ox O2 Del Method 04/19/25 07:38 98.4 F 63 18 143/96 H 92 Room Air 04/19/25 02:45 97.9 F 61 18 117/82 94 Room Air 04/18/25 23:18 60 04/18/25 22:48 97.9 F 59 L 18 149/90 H 95 Room Air Coding Level of Care Code 03137 SUB INP/OBS CARE 05/28MIN Diagnoses Odynophagia R13.10
--- NOTE | 2025-04-19 12:04 | Cardiology Progress Note ---
Date of Service April 19, 2025 Assessment & Plan (1) Pericarditis: Plan: 70-year-old male with a history of recent non-ST segment elevation myocardial infarction in the setting of nonobstructive coronary artery disease and sustained ventricular tachycardia (status post recent cardiac catheterization and dual-chamber [employer] AICD placement in early April,), normal LVEF presents with recurrent chest discomfort. (2) Ventricular tachycardia: Plan: History of sustained ventricular tachycardia. 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 (3) CAD (coronary artery disease): Plan: High sensitive troponin negative x 2. Recent cardiac catheterization as noted in the HPI. Continue aspirin 81 mg daily. (4) Hypertension: Plan: Anticipate blood pressure will improve as pain control achieved. Continue metoprolol, losartan, amlodipine. (5) Dyslipidemia: Plan: Continue atorvastatin 20 mg daily Plan 70-year-old male with recent hospitalization with sustained ventricular tachycar cristian. Cardiac catheterization without obstructive coronary disease underwent pacer defibrillator implantation. Presents now with persistent pain greater than 12 hours duration worse with movement and activity consistent with likely pericarditis. Component of esophageal spasm also noted. Symptoms responded to multiple factorial treatment. Continue colchicine Stop prednisone Ibuprofen 400 3 times daily x 3 days Continue pantoprazole 04/18/2025 Intermittent chest pressure question dysphagia still present. Agree with GI evaluation especially with likely need for nonsteroidals, colchicine Discontinue prednisone Increase amlodipine to 2.5 mg twice per day for hypertension control possible additional aid with esophageal spasm concern Limited echocardiogram ordered for today 04/19/2025 Symptomatically improved today with only minimal discomfort on reclining. No pericardial effusion on echocardiogram. Still notes symptoms with occasional swallowing Barium swallow scheduled for day Recommendations as previous Amlodipine increased for possible aid in esophageal spasm and blood pressure control Continue colchicine With resolved symptoms would not initiate anti-inflammatory drugs other than colchicine If indications are present for further GI evaluation no cardiac contraindications with preserved LV function, no obstructive coronary disease, no heart failure, normally functioning device Admission and Anticipated Discharge Date Admission Date: April 19, 2025 Subjective Patient was seen and personally examined. Less discomfort overnight. Planned barium swallow today. No fevers or chills minimal chest pressure when lying back last evening. No arrhythmias on telemetry with intermittent atrial pacing only Review of Systems Review of Systems: All systems reviewed & are unremarkable except as noted in Subjective Physical Exam Constitutional: WD/WN, vitals as above no acute distress Eyes: PERRL, conjunctivae normal, anicteric sclerae ENMT: external ear and nose normal, oropharynx normal Neck: trachea midline, no thyromegaly Respiratory: normal respiratory effort, lungs clear to auscultation Cardiovascular: Rate/Rhythm: regular rate and regular rhythm Heart Sounds: no murmur and no cardiac rub Vessels: no JVD Extremities: no edema Chest (Breasts): Chest: + pacemaker (Pacemaker defibrillator incision left upper chest healing well.) Results & Data Vital Signs (Past 12 Hours) Vital Signs Temp Pulse Resp BP Pulse Ox O2 Del Method 04/19/25 11:20 36.6 C 74 18 146/99 H 92 Room Air 04/19/25 07:38 36.9 C 63 18 143/96 H 92 Room Air 04/19/25 02:45 36.6 C 61 18 117/82 94 Room Air Diagnostic Findings Echocardiogram 04/18/2025 No effusion or change in heart function PG Care Time/CCT Total # of Minutes Spent Total Time Spent with Patient: Total time spent is greater than 50% in coordination of care (as documented) at patient's floor/unit and/or counseling patient: Coding Level of Care Code 42315 SUB INP/OBS CARE 3/50MIN Diagnoses Pericarditis I31.9 Ventricular tachycardia I47.20 CAD (coronary artery disease) I25.10 Essential hypertension I10 Hypertension type: essential hypertension Dyslipidemia E78.5 (4) Hypertension Hypertension type: essential hypertension Qualified Code(s): I10 - Essential (primary) hypertension
--- NOTE | 2025-04-19 12:27 | Fluoroscopy Report ---
[place] GI series CLINICAL HISTORY: odynophagia COMPARISON STUDY: No previous studies for comparison. FINDINGS: 1.19 minutes of fluoroscopic time was utilized. The dose was 52.5 mGy 19 fluoroscopic spot images were acquired. The patient swallowed effervescent granules and barium without difficulty. No esophageal masses were visualized. There was disordered esophageal motility and trace reflux. No gastric masses are visualized. There is nonspecific gastric rugal fold thickening. There is no gastric outlet obstruction. There is equivocal mild fold thickening within the duodenal b ulb. The ligament of Treitz is located in the normal anatomical position. The patient swallowed a one half inch barium tablet without difficulty. This freely passed into the s tomach. IMPRESSION: 1. Disordered esophageal motility with trace reflux 2. Nonspecific mild gastric rugal fold thickening 3. Mild fold thickening within the duodenal bulb ACT 112: Negative or not required by law. Electronically signed by: Dennis Zafar M.D. 04/19/2025 12:25 PM
--- NOTE | 2025-04-19 13:40 | Hospitalist Progress Note ---
Date of Service April 19, 2025 Assessment & Plan (1) Chest pain: Plan: 70M with PMH CAD s/p recent non-ST segment elevation myocardial infarction in the setting of nonobstructive coronary artery disease and sustained ventricular tachycardia AICD, normal LVEF presents with recurrent chest discomfort. Pericarditis Presented with Chest pain -Continuous substernal chest pain, relieved with sitting up -Started on colchicine, prednisone and toradol 04/16 with almost immediately relief in chest pain on 04/17/2025. -Unfortunately, chest pain recurred this AM, 04/18. Also endorsing odynophagia. History of esophageal spasms -HS trops normal -CTA neg for PE -Leukocytosis secondary to steroids - Echo of the heart did not show any pericardial effusion Chest pain is much better today Chest pain may be complicated by esophageal symptoms Continue amlodipine with increased dose and colchicine for 3 months Will continue current management Odynophagia -Due to his history of esophageal spasms, odynophagia, will ask GI to evaluate -Will give trial of nitro paste again today as it seemed to help when given two days ago -NPO after MN in case GI wishes to do endoscopy tomorrow - appreciate GI input and recommendation No contraindication for EGD if needed Status post upper GI series with air-contrast showing esophageal dysmotility Heart healthy diet has been started Further recommendation as per GI #HTN -BP fluctuating -Low 04/17 due to nitro paste which was DC on 04/17 -Now elevated, likely from steroids Plan -Norvasc increased to 2.5 mg twice daily, Losartan 100mg daily,Toprol 50mg daily -Appreciate cardio input #CAD -Recent NSTEMI -Continue ASA statin BB I spent a total of 53 minutes coordinating, documenting, and providing care for this patient excluding time spent in the performance of separately billed services. This included personally reviewing all current laboratories and imaging studies, medical reconciliation, outpatient chart review and discussion with specialists Admission and Anticipated Discharge Date Admission Date: April 19, 2025 Subjective 04/19/2025 The patient was seen and examined in telemetry unit He has been feeling much better with his cardiac symptoms but he still has problems swallowing Awaiting barium swallow and follow-through as per GI Denies any other significant symptoms Review of Systems Review of Systems: All systems reviewed and are unremarkable except as noted below Physical Exam Physical Exam: Moving around the room without any acute discomfort Constitutional: well developed, well nourished and + obese; not ill appearing Eyes: PERRL, conjunctivae normal, anicteric sclerae ENMT: external ear and nose normal, oropharynx normal Neck: trachea midline, no thyromegaly Respiratory: no respiratory distress Auscultation: lungs clear to auscultation bilaterally Cardiovascular: Rate/Rhythm: regular rate and regular rhythm; not tachycardic Heart Sounds: normal S1 and normal S2; no murmur Extremities: no edema Gastrointestinal (Abdomen): Inspection/Auscultation: normal bowel sounds; abdomen not distended Percussion/Palpation: abdomen soft; abdomen nontender Musculoskeletal: No acute arthritis involving any of the joint Neurologic: normal touch/pain/proprioception and moves all extremities; no focal motor deficits Psychiatric: A+Ox3, euthymic affect Lymphatic: no cervical or axillary lymphadenopathy Results & Data Results & Data Vital Signs (Past 12 Hours) Vital Signs Temp Pulse Resp BP Pulse Ox O2 Del Method 04/19/25 11:20 36.6 C 74 18 146/99 H 92 Room Air 04/19/25 07:38 36.9 C 63 18 143/96 H 92 Room Air 04/19/25 02:45 36.6 C 61 18 117/82 94 Room Air Medications Administered Current Inpatient Medications Hydrocodone Bitart/Acetaminophen (Hydrocodone/Acetamophen 5/325mg Tab) 1 tab PO QID PRN PRN Reason: Pain Stop: 04/30/25 03:56 Last Admin: 04/16/25 11:55 Dose: 1 tab Amlodipine Besylate (Amlodipine Besylate 5 Mg Tab) 2.5 mg PO BID [facility] Stop: 05/18/25 20:59 Last Admin: 04/19/25 08:38 Dose: 2.5 mg Aspirin (Aspirin 81 Mg Ectab) 81 mg PO HS [facility]ISAL Stop: 05/16/25 20:59 Last Admin: 04/18/25 20:35 Dose: 81 mg Atorvastatin Calcium (Atorvastatin 20 Mg Tab) 20 mg PO HS [facility]ISAL Stop: 05/16/25 20:59 Last Admin: 04/18/25 20:34 Dose: 20 mg Colchicine (Colchicine 0.6 Mg Tab) 0.6 mg PO BID [facility] Stop: 05/16/25 10:44 Last Admin: 04/19/25 08:39 Dose: 0.6 mg Enoxaparin Sodium (Enoxaparin Inj 40 Mg/0.4 Ml Syr) [facility] [place] Stop: 05/16/25 08:59 Last Admin: 04/19/25 08:39 Dose: 40 mg Promethazine HCl (Phenergan) 6.25 mg in 50.25 mls @ 201 mls/hr IV Q6H PRN PRN Reason: Nausea And Vomiting Stop: 05/16/25 03:56 Ketorolac Tromethamine (Ketorolac Tromethamine 15 Mg/Ml Vial) 15 mg IV Q6H PRN PRN Reason: Pain Stop: 04/21/25 13:01 Last Admin: 04/18/25 06:11 Dose: 15 mg Lorazepam (Lorazepam 0.5 Mg Tab) 0.5 mg PO TID PRN PRN Reason: Anxiety Stop: 05/16/25 03:56 Losartan Potassium (Losartan Potassium 50 Mg Tab) 100 mg PO [facility] Stop: 05/16/25 08:59 Last Admin: 04/19/25 08:39 Dose: 100 mg Melatonin (Melatonin 3 Mg Tab) 9 mg PO HS PRN PRN Reason: insomnia Stop: 05/16/25 04:02 Last Admin: 04/18/25 20:33 Dose: 9 mg Metoprolol Succinate (Metoprolol Succ 50mg Ext Rel Tab) 50 mg PO [facility] Stop: 05/16/25 08:59 Last Admin: 04/19/25 08:38 Dose: 50 mg Montelukast Sodium (Montelukast Sodium 10 Mg Tablet) 10 mg PO [facility] Stop: 05/16/25 08:59 Last Admin: 04/19/25 08:38 Dose: 10 mg Morphine Sulfate (Morphine Sulfate 4 Mg/Ml 1 Ml Carp\Vial) 4 mg IV Q4H PRN PRN Reason: Pain Stop: 04/30/25 03:56 Last Admin: 04/16/25 10:04 Dose: 4 mg Multivitamins (Multivitamin Tab) 1 tab PO [facility] Stop: 05/16/25 08:59 Last Admin: 04/19/25 08:39 Dose: 1 tab Pantoprazole Sodium (Pantoprazole 40 Mg Tab) 40 mg PO BID [facility] Stop: 05/18/25 20:59 Last Admin: 04/19/25 08:38 Dose: 40 mg Trazodone HCl (Trazodone Hcl 100 Mg Tab) 100 mg PO [facility] Stop: 05/16/25 20:59 Last Admin: 04/18/25 20:36 Dose: 100 mg
[2025-04-19 15:27] VITALS: TEMP 98.1; O2SAT 93
[2025-04-19 15:44] VITALS: BP 162/96; PULSE 59
--- NOTE | 2025-04-19 16:59 | Discharge Summary ---
Date of Service April 19, 2025 Admission HPI Per Admitting Provider History obtained from patient, family, and records. Medical history significant for nonocclusive CAD, VT status post cardioversion status post ICD, PAF, HTN, hyperlipidemia, aortic root aneurysm/proximal ascending thoracic aorta enlargement, pulmonary hypertension as per records, CVA, prediabetes, GERD. Recent confinement 2 weeks ago for NSTEMI. Patient presented with VT. Underwent cardioversion at the ER. Transient AF noted post cardioversion. Nonocclusive CAD on diagnostic cardiac catheterization. AICD placed prior to discharge. Patient had substernal pain going to his throat around 6 PM last night. Somewhat grabbing as per patient. Different from reflux. No cough or SOB. Compliant with home medications. Blood pressure somewhat elevated at home, SBP of 140s at least. Denies headache. Denies unusual stress or exertion. Occasional tapping sensation from pacemaker device which he has not ate since placement from last confinement. SBP 180s upon arrival at the ER. Chest pain not relieved by nitroglycerin administration at the ER. 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 Admission Exam Per Admitting Provider Physical Exam: GENERAL: Slightly uncomfortable, obese, no respiratory distress SKIN: Normal color, warm HEENT: Partial alopecia, pink palpebral conjunctivae, no ptosis, moist buccal mucosa NECK : Supple, no tenderness CHEST : CTA, no tenderness HEART : RRR, no obvious murmurs ABDOMEN: Some distention, nontender EXTREMITIES : No LE swelling/tenderness, palpable pulses, no other conspicuous deformities noted NEUROLOGIC : Coherent, no facial asymmetry, no other gross focality Principal Diagnosis Pericarditis, odynophagia secondary to disordered esophageal motility, h/o ventricular tachycardia status post AICD placement Discharge Exam Moving around the room without any acute discomfort Constitutional well developed, well nourished and + obese; not ill appearing Eyes PERRL, conjunctivae normal, anicteric sclerae ENMT external ear and nose normal, oropharynx normal Neck trachea midline, no thyromegaly Respiratory no respiratory distress Auscultation: lungs clear to auscultation bilaterally Cardiovascular Rate/Rhythm: regular rate and regular rhythm; not tachycardic Heart Sounds: normal S1 and normal S2; no murmur Extremities: no edema Gastrointestinal (Abdomen) Inspection/Auscultation: normal bowel sounds; abdomen not distended Percussion/Palpation: abdomen soft; abdomen nontender Neurologic normal touch/pain/proprioception and moves all extremities; no focal motor deficits Psychiatric A+Ox3, euthymic affect Lymphatic no cervical or axillary lymphadenopathy Discharge Data Allergies Allergy/AdvReac Type Severity Reaction Status Date / Time aspirin [From Percodan] Allergy Intermediate Itching Verified 04/16/25 01:06 lisinopril Allergy Mild Cough Verified 04/16/25 01:06 oxycodone Allergy Mild itching Verified 04/16/25 01:06 Consultations 04/16/25 03:17 ED Decision to Admit Stat 04/16/25 06:12 Consult Cardiology Routine 04/18/25 10:39 Consult Gastroenterology Routine Ordered Studies 04/16/25 04:54 CT angio chest PE protocol Stat 04/19/25 11:00 [place] GI series Routine Hospital Course (1) Chest pain: 70M with PMH CAD s/p recent non-ST segment elevation myocardial infarction in the setting of nonobstructive coronary artery disease and sustained ventricular tachycardia AICD, normal LVEF presents with recurrent chest discomfort. Pericarditis Presented with Chest pain -Continuous substernal chest pain, relieved with sitting up -Started on colchicine, prednisone and toradol 04/16 with almost immediately relief in chest pain on 04/17/2025. -Unfortunately, chest pain recurred this AM, 04/18. Also endorsing odynophagia. History of esophageal spasms -HS trops normal -CTA neg for PE -Leukocytosis secondary to steroids - Echo of the heart did not show any pericardial effusion Chest pain is much better today Chest pain may be complicated by esophageal symptoms Continue amlodipine with increased dose and colchicine for 3 months Will continue current management Odynophagia -Due to his history of esophageal spasms, odynophagia, will ask GI to evaluate -Will give trial of nitro paste again today as it seemed to help when given two days ago -NPO after MN in case GI wishes to do endoscopy tomorrow - appreciate GI input and recommendation No contraindication for EGD if needed Status post upper GI series with air-contrast showing esophageal dysmotility Heart healthy diet has been started Further recommendation as per GI #HTN -BP fluctuating -Low 04/17 due to nitro paste which was DC on 04/17 -Now elevated, likely from steroids Plan -Norvasc increased to 2.5 mg twice daily, Losartan 100mg daily,Toprol 50mg daily -Appreciate cardio input #CAD -Recent NSTEMI -Continue ASA statin BB I spent a total of 53 minutes coordinating, documenting, and providing care for this patient excluding time spent in the performance of separately billed services. This included personally reviewing all current laboratories and imaging studies, medical reconciliation, outpatient chart review and discussion with specialists Total Time Total Time Spent Total Time Spent (In Minutes): 40 minutes Discharge Plan Discharge Items Patient Disposition: Home - Self-Care Reason For Visit: CP Discharge Diagnosis: Pericarditis, odynophagia secondary to disordered esophageal motility, h/o ventricular tachycardia status post AICD placement Condition on Discharge: Fair Activity: Resume your previous activity Non-emergency contact: Primary Care Provider Call non-emergency contact if: you have any medication questions and your symptoms worsen Follow-up/Referrals: Vinny Montero DO [Primary Care Provider] - (Date & Time 04/24/2025 2:20 PM Provider: Vinny Montero DO [facility] ) Diet: Heart Healthy Addtl Attending Provider Instructions: Please take your medications as advised Take omeprazole 40 mg daily Colchicine as per advice Please take time eating, taking small bites, chewing food well and using plenty of fluids with meals Please keep appointments with your healthcare providers including GI evaluation in including GI evaluation in 3 months as per GI recommendation, You can take ibuprofen 400 mg 3 times daily for 3 days if chest pain continues Pending Studies at Discharge: No Stand-Alone Forms: My [facility] [employer], Smoking Cessation Medications and DC Order Prescriptions: New amlodipine 5 mg Tablet 2.5 mg PO BID Qty: 30 0RF colchicine [Colcrys] 0.6 mg Tablet 0.6 mg PO BID Qty: 60 0RF omeprazole 40 mg capsule,delayed release(DR/EC) 40 mg PO DAILY Qty: 30 0RF Continued multivitamin Tablet 1 tab PO QAM atorvastatin 20 mg Tablet 20 mg PO HS aspirin 81 mg Tablet 81 mg PO HS melatonin 10 mg Tablet 10 mg PO HS trazodone 100 mg Tablet 100 mg PO HS meclizine 25 mg tablet 25 mg PO TID PRN (Reason: dizziness) Qty: 30 0RF metoprolol succinate [Toprol XL] 50 mg tablet extended release 24 hr 50 mg PO QAM losartan 100 mg tablet 100 mg PO QAM montelukast 10 mg tablet 10 mg PO QAM fluorouracil 5 % cream 1 applic TOPICAL BID Rx Instructions: apply to skin cancer on ear for 2 weeks...keep tube away from pets...keep area out of sun cholecalciferol (vitamin D3) 50 mcg (2,000 unit) Tablet 50 mcg PO DAILY Discontinued omeprazole 20 mg Capsule,Delayed Release(Dr/Ec) 20 mg PO QAM Discharge Orders: Discharge Order (Routine); Ordered 04/19/25 Ordered By: Nicola Ramos Admission Data Admit Date/Time: 04/19/25 09:40 Attending Provider: Nicola Ramos Admit Provider: Guille Suresh Primary Care Provider: Vinny Montero Other Providers: Guille Suresh; Jadiel Tomlinson; Erasto Luke Other Interventions: Discharge Summary Assessment (RN) Last Done: 04/19/25 15:42
== END 2025-04-19 16:33 | disposition home or self-care (01) | DRG 282 ==
LOC: 2S 00:36 → ED 00:36 → SUATTDRO 03:22 → 2S 04:03

== ENCOUNTER 2025-04-20 17:41 | Inpatient (IN) ==
--- NOTE | 2025-04-20 17:54 | Emergency Department Note ---
Impression & Plan Chest pain ED Provider Note ED Provider Note NAME: LAKEISHA DUENAS AGE:70 SEX: Male : 1955 ARRIVES VIA: POV INFORMANT: Patient ED PROVIDER(s): Gurmeet Ruelas CHIEF COMPLAINT: CP HPI: 70-year-old male presents emergency room with complaints of chest pain. Patient with recent admissions for pericarditis, had some V. tach, had an AICD placed installed. He had been having some what he refers to as esophageal spasms. He stated he had severe pain in his esophagus. He states he has had a long history of GERD. He states that they had him on a half an inch Nitropaste and that did seem to keep this at bay in the hospital, but when he went home things got a lot worse. He is in significant pain. Reports it in the central part of his chest. PAST MEDICAL HISTORY:See Below PAST SURGICAL HISTORY:See Below FAMILY HISTORY:See Below SOCIAL HISTORY:See Below HOME MEDICATIONS:See Below ALLERGIES:See Below VITALS:See Below PHYSICAL EXAMINATION: GENERAL: alert, well appearing, well nourished, no distress, non-toxic EYE EXAM: normal conjunctiva, PERRL and EOM's grossly intact OROPHARYNX: no exudate, no erythema, lips, buccal mucosa, and tongue normal and mucous membranes are moist NECK: supple, no nuchal rigidity, no adenopathy, non-tender LUNGS: Clear to auscultation. Normal chest wall mechanics, no w/r/r HEART: no murmurs, S1 normal and S2 normal ABDOMEN: abdomen soft, non-tender, normo-active bowel sounds, no masses, no rebound or guarding. BACK: Back is symmetrical on inspection and there is no deformity, no midline tenderness, no CVA tenderness. SKIN: no rashes, petechiae, orbruising UPPER EXTREMITIES: upper extremities are grossly normal. FROM, nml pulses b/l. LOWER EXTREMITIES: No pitting edema. FROM, nml pulses b/l. NEURO EXAM: Normal sensorium, cranial nerves II-XII grossly intact, normal speech, no facial droop,nogross weakness of arms, no gross weakness of legs. Gross sensation intact. No ataxia. Vital Signs: reviewed and remarkable Differential Diagnosis: Cardiac ischemia, aortic dissection, pulmonary embolism, pneumothorax, pneumonia, pericarditis, myocarditis, esophageal rupture, GERD, cholecystitis, pancreatitis, musculoskeletal, as well as other pathologies. MEDICAL DECISION MAKIN-year-old male presents emergency room with complaints of chest pain Patient had some relief with nitro initially, then the pain came back. GI cocktail did not seem to help. He had some relief with Dilaudid and was agreeable to admission at this time. I spoke with hospitalist, they will admit. Spoke with patient and his family about results and plan, they are agreeable. Consultation(s): [] ER Treatment Provided: See below Diagnostics Interpreted By Me: -ECG: EKG shows normal sinus rhythm at a rate of 68 with a right bundle branch block and left anterior fascicular block pattern. No change from prior. -Cardiac Monitoring: An order was placed for continuous cardiac monitoring. The monitor shows a rate of 68 with NS rhythm. -Laboratory studies: As stated above and show below. -Imaging studies: CXR - no acute changes Triage Nursing Note Reviewed Prior/Outside Records Reviewed Past Med/Surg History Problem List (Updated 04/21/25 @ 01:20 by Maeve Ruelas DO) Odynophagia History of ventricular tachycardia (Acute) Left-sided chest pain (Acute) CAD (coronary artery disease) Pericarditis Paroxysmal ventricular tachycardia Coronary artery calcification Non-ST elevation (NSTEMI) myocardial infarction Dizziness (Acute) New onset a-fib (Acute) History of cardioversion (Acute) Chest pain (Acute) Ventricular tachycardia (Acute) H/O bilateral hip replacements Hypertension Prediabetes Dyslipidemia Cervical stenosis of spinal canal Encounter for pre-operative examination History of esophagogastroduodenoscopy (EGD) GERD (gastroesophageal reflux disease) (Chronic) Osteoarthritis (Chronic) Medical History Aortic root aneurysm Nausea and vomiting after administration of anesthetic agent Ocular migraine "a couple times a year" Surgical History History of mandibular surgery (~1984) to repair cartilage tear History of colonoscopy S/P epidural steroid injection Family History Daughter Leukemia Sister Multiple sclerosis Mother Hypertension Other No family history of adverse response to anesthesia Social History Smoking Status: Never smoker Second Hand Exposure: No; Do You Dip or Chew Tobacco: No; Hx Alcohol Use: Yes Alcohol type: hard liquor Alcohol Intake Frequency: 2-4 x/Month Hx Substance Use: No Preferred Language: Chadian Communication Ability: Effective 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 Beliefs That Will Affect Care: None Current Living Situation: Spouse Current Living Situation Comment: Lives w/ spouse at home Feels Safe at Home: Yes Assistive Devices: None Allergies Allergies Allergy/AdvReac Type Severity Reaction Status Date / Time oxycodone Allergy Intermediate itching/hyp Verified 04/20/25 22:37 eractivity lisinopril AdvReac Intermediate Cough Verified 04/20/25 22:37 Home Meds Home Medications Medication Instructions Recorded Confirmed aspirin 81 mg tablet 81 mg PO HS 10/03/20 04/20/25 atorvastatin 20 mg tablet 20 mg PO HS 10/03/20 04/20/25 melatonin 10 mg tablet 10 mg PO HS 10/03/20 04/20/25 multivitamin 1 tab PO QAM 10/03/20 04/20/25 trazodone 100 mg tablet 100 mg PO HS 10/03/20 04/20/25 cholecalciferol (vitamin D3) 50 50 mcg PO DAILY 04/03/25 04/20/25 mcg (2,000 unit) tablet fluorouracil 5 % topical cream 1 applic topical BID PRN NEEDED 04/03/25 04/20/25 montelukast 10 mg tablet 10 mg PO QAM 04/03/25 04/20/25 losartan 100 mg tablet 100 mg PO QAM 04/16/25 04/20/25 metoprolol succinate 50 mg 50 mg PO QAM 04/16/25 04/20/25 tablet,extended release 24 hr (Toprol XL) Previous Rx's Medication Instructions Recorded meclizine 25 mg tablet 25 mg PO TID PRN dizziness #30 tabs 06/14/22 amlodipine 5 mg tablet 2.5 mg (1/2 x 5 mg) PO BID #30 tabs 04/19/25 colchicine 0.6 mg tablet (Colcrys) 0.6 mg PO BID #60 tabs 04/19/25 omeprazole 40 mg capsule,delayed 40 mg PO DAILY #30 caps 04/19/25 release Results & Data (ED) Vital Signs Vital Signs - 24 hr 04/20/25 17:41 04/20/25 17:47 04/20/25 17:55 Temperature 36.1 C L Temperature Source Temporal Artery Scan Pulse Rate 79 63 Pulse Rate [Right Finger] Pulse Rate from SpO2 Sensor Pulse Rhythm Regular Pulse Rhythm [Right Finger] Pulse Strength [Right Finger] Respiratory Rate 18 16 Respiratory Effort / Characteristics Respiratory Depth Respiratory Pattern Blood Pressure 154/93 H Blood Pressure [Right Arm] Blood Pressure Mean 113 Blood Pressure Mean [Right Arm] Pulse Oximetry 94 98 Oxygen Delivery Method Room Air Room Air Sepsis Recent Fever Within 48 Hours No Sepsis New/Unexplained Change in Mental Status No Sepsis Action Taken by Nursing No Action Required 04/20/25 19:00 04/20/25 19:07 04/20/25 19:30 Temperature Temperature Source Pulse Rate 72 74 71 Pulse Rate [Right Finger] Pulse Rate from SpO2 Sensor 75 71 Pulse Rhythm Pulse Rhythm [Right Finger] Pulse Strength [Right Finger] Respiratory Rate 18 23 Respiratory Effort / Characteristics Respiratory Depth Respiratory Pattern Blood Pressure 114/87 126/90 Blood Pressure [Right Arm] Blood Pressure Mean 93 108 Blood Pressure Mean [Right Arm] Pulse Oximetry 93 93 Oxygen Delivery Method Sepsis Recent Fever Within 48 Hours Sepsis New/Unexplained Change in Mental Status Sepsis Action Taken by Nursing 04/20/25 21:00 04/20/25 23:00 04/20/25 23:24 Temperature Temperature Source Pulse Rate 73 Pulse Rate [Right Finger] 68 82 Pulse Rate from SpO2 Sensor Pulse Rhythm Pulse Rhythm [Right Finger] Regular Regular Pulse Strength [Right Finger] Normal Normal Respiratory Rate 16 16 Respiratory Effort / Characteristics Non-Labored Non-Labored Respiratory Depth Normal Normal Respiratory Pattern Regular Regular Blood Pressure Blood Pressure [Right Arm] 138/74 128/77 Blood Pressure Mean Blood Pressure Mean [Right Arm] 95 94 Pulse Oximetry 94 98 Oxygen Delivery Method Room Air Sepsis Recent Fever Within 48 Hours Sepsis New/Unexplained Change in Mental Status Sepsis Action Taken by Nursing Laboratory Data 04/20/25 Unknown 04/20/25 Unknown Lab Results 04/20/25 04/20/25 Range/Units 19:47 Unknown WBC 10.83 H (4.8-10.8) K/ul RBC 4.58 L (4.70-6.10) M/uL Hgb 15.5 (14.0-18.0) g/dL Hct 44.0 (42.0-52.0) % MCV 96.1 (80.0-100.0) fL MCH 33.8 (25.0-34.0) pg MCHC 35.2 (32.0-36.0) g/dL RDW Std Deviation 43.5 (36.4-46.3) fL RDW Coeff of Roney 12.2 (11.5-14.5) % Plt Count 187 (130-400) K/uL MPV 10.0 (9.4-12.4) fL Immature Gran % (Auto) 0.5 % Neut % (Auto) 76.2 % Lymph % (Auto) 13.1 % [place] % (Auto) 8.0 % Eos % (Auto) 1.8 % Baso % (Auto) 0.4 % Neut # (Auto) 8.26 H (1.40-6.50) K/uL Lymph # (Auto) 1.42 (1.20-3.40) K/uL [place] # (Auto) 0.87 H (0.11-0.59) K/uL Eos # (Auto) 0.19 (0.00-0.50) K/uL Baso # (Auto) 0.04 (0.00-0.20) K/uL Immature Gran # (Auto) 0.05 (0.01-0.20) K/uL Sodium 136 (136-145) mmol/L Potassium 4.0 (3.5-5.1) mmol/L Chloride 103 (98-107) mmol/L Carbon Dioxide 27 (21-32) mmol/L Anion Gap 6 (3-11) BUN 19 (6-23) mg/dl Creatinine 0.94 (0.6-1.4) mg/dl Est Cr Clr Drug Dosing 90.6 ml/min eGFR 86.13 BUN/Creatinine Ratio 20.2 H (10-20) Glucose 132 H (70-99(Fasting)) mg/dl Calcium 9.5 (8.6-10.3) mg/dl Total Bilirubin 2.4 H (0.2-1.0) mg/dl AST 26 (13-39) U/L ALT 21 (7-52) U/L Alkaline Phosphatase 74 (34-104) U/L Troponin I High Sens 17.5 19.4 (0-20) pg/ml Total Protein 7.5 (6.0-8.3) gm/dl Albumin 4.3 (3.4-5.0) gm/dl Globulin 3.2 (2.5-4.0) gm/dl Albumin/Globulin Ratio 1.3 (0.9-2) Lipase 35 (11-82) U/L Administered Medications Nitroglycerin (Nitroglycerin Sl 0.4 Mg/Tab Tab) 0.4 mg SL Q5M PRN PRN Reason: Chest Pain Stop: 05/20/25 17:54 Last Admin: 04/20/25 18:12 Dose: 0.4 mg Documented By: aileen Nitroglycerin (Nitroglycerin 2% Ointment 30gm Tube) 0.5 inch EXT Q6H FAISAL Stop: 05/20/25 19:29 Last Admin: 04/20/25 19:37 Dose: 0.5 inch Documented By: aileen Discontinued Medications Al Hydrox/Mg Hydrox/Simethicone (Aluminum/Magnesium Susp 30 Ml Udc) 30 ml PO NOW STA Stop: 04/20/25 18:01 Last Admin: 04/20/25 18:12 Dose: 30 ml Documented By: aileen Hydromorphone HCl (Hydromorphone Inj 0.5 Mg/0.5 Ml Syr) 0.5 mg IV NOW STA Stop: 04/20/25 20:07 Last Admin: 04/20/25 20:17 Dose: 0.5 mg Documented By: aileen Hydromorphone HCl (Hydromorphone Inj 0.5 Mg/0.5 Ml Syr) 0.5 mg IV NOW STA Stop: 04/21/25 00:45 Last Admin: 04/21/25 00:55 Dose: 0.5 mg Documented By: aileen Sodium Chloride (Nss) 1,000 mls @ 999 mls/hr IV .Q1H1M FAISAL Stop: 04/20/25 21:19 Last Admin: 04/20/25 23:25 Dose: Not Given Documented By: aileen Infusion: 04/20/25 20:48 Dose: Infused Documented By: aileen Admin: 04/20/25 19:37 Dose: 999 mls/hr Documented By: aileen Imaging Data Radiologist's Impression: Chest X-Ray 04/20/25 17:55 HISTORY: Chest pain TECHNIQUE: Portable AP radiograph of the chest. COMPARISON: Chest CT dated 04/16/2025. FINDINGS: Mild linear opacity at the left lung base Favoring atelectasis. Clear right lung. No pneumothorax or effusion. Left subclavian approach dual-lead pacer/AICD. Normal heart size. Left-sided aortic arch. Midline trachea. Cervical spine fusion hardware. No acute osseous abnormality. The included upper abdomen is unremarkable. IMPRESSION: * No acute cardiopulmonary findings. * Mild linear opacities involving the left lower lung favoring atelectasis. Electronically signed by Ricky Gonzales 04-20-2025 8:56 PM Discharge Plan Visit Data Chief Complaint: Chest Pain Stated Complaint: CHEST PAINS ED Provider: Maeve Ruelas Discharge Problem: Chest pain Patient Disposition: Admitted As Inpatient Condition: Good Forms Stand Alone Forms: My [facility] [employer] Software Prescriptions Prescriptions: No Action multivitamin Tablet 1 tab PO QAM atorvastatin 20 mg Tablet 20 mg PO HS aspirin 81 mg Tablet 81 mg PO HS melatonin 10 mg Tablet 10 mg PO HS trazodone 100 mg Tablet 100 mg PO HS meclizine 25 mg tablet 25 mg PO TID PRN (Reason: dizziness) Qty: 30 0RF metoprolol succinate [Toprol XL] 50 mg tablet extended release 24 hr 50 mg PO QAM losartan 100 mg tablet 100 mg PO QAM amlodipine 5 mg Tablet 2.5 mg PO BID Qty: 30 0RF Rx Instructions: PER PT "READ INSTRUCTION ON SCRIPT WRONG, TOOK 5 MG 04/19/25, PM DOSE, AND 5 MG 04/20/25, AM DOSE. 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
[2025-04-20] MEDS: NITROGLYCERIN SL 0.4 MG/TAB TAB SL PRN (18:12)
[2025-04-20] MEDS: ALUMINUM/MAGNESIUM SUSP 30 ML UDC PO STA (18:12)
[2025-04-20 18:21] LABS: Hematocrit (blood only) 44.0 % (42.0-52.0); Hemoglobin 15.5 g/dL (14.0-18.0); Immature Granulocytes # (auto) 0.05 K/uL (0.01-0.20); Immature Granulocytes % (auto) 0.5 %; Mean Corpuscular Hemoglobin 33.8 pg (25.0-34.0); Mean Corpuscular Volume 96.1 fL (80.0-100.0); Platelet Count 187 K/uL (130-400); RDW Standard Deviation 43.5 fL (36.4-46.3); Red Blood Count 4.58 M/uL (4.70-6.10); White Blood Count 10.83 K/ul (4.8-10.8)
[2025-04-20 18:37] LABS: Alanine Aminotransferase 21.0 U/L (7-52); Albumin Globulin Ratio 1.3 (0.9-2); Albumin Level 4.3 gm/dl (3.4-5.0); Alkaline Phosphatase 74.0 U/L (34-104); Anion Gap 6.0 (3-11); Bilirubin,Total 2.4 mg/dl (0.2-1.0); Blood Urea Nitrogen 19.0 mg/dl (6-23); Calcium 9.5 mg/dl (8.6-10.3); Carbon Dioxide 27.0 mmol/L (21-32); Chloride 103.0 mmol/L (98-107); Creatinine Clr Calc Pharmacy 90.6 ml/min; Globulin 3.2 gm/dl (2.5-4.0); Glucose 132.0 mg/dl (70-99(Fasting)); Lipase 35.0 U/L (11-82); Potassium 4.0 mmol/L (3.5-5.1); Sodium 136.0 mmol/L (136-145); Total Protein 7.5 gm/dl (6.0-8.3)
[2025-04-20] MEDS: SODIUM CHLORIDE 0.9% 1,000 ML IV SCH (19:37)
[2025-04-20] MEDS: NITROGLYCERIN 2% OINTMENT 30GM TUBE EXT SCH (19:37)
[2025-04-20] MEDS: HYDROmorphone INJ 0.5 MG/0.5 ML SYR IV STA (20:17)
--- NOTE | 2025-04-20 20:58 | XRay Report ---
HISTORY: Chest pain TECHNIQUE: Portable AP radiograph of the chest. COMPARISON: Chest CT dated 04/16/2025. FINDINGS: Mild linear opacity at the left lung base Favoring atelectasis. Clear right lung. No pneumothorax or effusion. Left subclavian approach dual-lead pacer/AICD. Normal heart size. Left-sided aortic arch. Midline trachea. Cervical spine fusion hardware. No acute osseous abnormality. The included upper abdomen is unremarkable. IMPRESSION: * No acute cardiopulmonary findings. * Mild linear opacities involving the left lower lung favoring atelectasis. Electronically signed by Ricky Gonzales 04-20-2025 8:56 PM
[2025-04-21] MEDS: HYDROmorphone INJ 0.5 MG/0.5 ML SYR IV STA ×2 (00:55→04:10)
--- NOTE | 2025-04-21 02:05 | History & Physical Report ---
Date of Service April 21, 2025 Assessment & Plan (1) Chest pain: Plan: 70-year-old male with past medical history significant for nonocclusive CAD, VT status post cardioversion status post ICD, history of PAF, hypertension, aortic root aneurysm/proximal ascending thoracic aorta enlargement, pulmonary hypertension, history of CVA, prediabetes, GERD who was recently in the hospital for chest pains thought to be from pericarditis and also possible esophageal spasms and is on amlodipine and also colchicine was discharged on 04/19/2025 comes back with chest pains. Patient states since discharge was doing okay. Was ambulating okay. At 3 PM he started again having chest pains. It occurred while he was sitting in the chair. Taking deep breath chest hurts. Its mostly in the central chest region and in his neck and jaws. He thinks it is esophageal spasms. In the ER Nitropaste was placed but did not helped the pain. Dilaudid helped the pain but thinks it is coming back. Has headache. No runny nose or sore throat. No cough. No fevers. No nausea. No abdominal pain. Normal bowel and bladder movements. Hemodynamics are okay.Patient thinks ICD slightly moved upwards from its original location. Chest pains EKG unremarkable 2 sets of troponin negative History of pericarditis and esophageal spasms Recent cardiac catheter nonocclusive CAD Will monitor on telemetry Will follow serial cardiac enzymes Check D-dimer- d dimer elevated, Will follow CT chest Pe study. N.p.o. Pain control Cardio consult in a.m. for further recommendations Possible esophageal spasms Continue omeprazole GI consult in a.m. History of pericarditis Continue colchicine Cardiology consulted Patient with history of recent non-ST elevated HI Cardiac cath showed nonobstructive CAD On aspirin, statin and metoprolol succinate History of VT History of cardioversion Status post AICD Pacemaker interrogation as per cardiology Hypertension On amlodipine, losartan and metoprolol succinate Will monitor DVT prophylaxis SCDs Disposition Telemetry Full code. History of Present Illness Chief Complaint: Chest pains Primary Care Provider: Vinny Montero DO 70-year-old male with past medical history significant for nonocclusive CAD, VT status post cardioversion status post ICD, history of PAF, hypertension, aortic root aneurysm/proximal ascending thoracic aorta enlargement, pulmonary hypertension, history of CVA, prediabetes, GERD who was recently in the hospital for chest pains thought to be from pericarditis and also possible esophageal spasms and is on amlodipine and also colchicine was discharged on 04/19/2025 comes back with chest pains. Patient states since discharge was doing okay. Was ambulating okay. At 3 PM he started again having chest pains. It occurred while he was sitting in the chair. Taking deep breath chest hurts. Its mostly in the central chest region and in his neck and jaws. He thinks it is esophageal spasms. In the ER Nitropaste was placed but did not helped the pain. Dilaudid helped the pain but thinks it is coming back. Has headache. No runny nose or sore throat. No cough. No fevers. No nausea. No abdominal pain. Normal bowel and bladder movements. Hemodynamics are okay.Patient thinks ICD slightly moved upwards from its original location. Past medical history. As mentioned above. Past surgical history. Left shoulder arthroscopy. Colonoscopy. EGD. Lumbar spine fusion surgery. Bilateral cataracts. Bilateral total hip replacements. Upper GI endoscopy. Social history. . No smoking. Alcohol rarely. No drug use. Family history. Daughter had ALL, recovered. Mother had hypertension. Maternal grandfather had diabetes. Allergies Allergy/AdvReac Type Severity Reaction Status Date / Time oxycodone Allergy Intermediate itching/hyp Verified 04/20/25 22:37 eractivity lisinopril AdvReac Intermediate Cough Verified 04/20/25 22:37 Home Medications Medication Instructions Recorded Confirmed Type aspirin 81 mg tablet 81 mg PO HS 10/03/20 04/20/25 History atorvastatin 20 mg tablet 20 mg PO HS 10/03/20 04/20/25 History melatonin 10 mg tablet 10 mg PO HS 10/03/20 04/20/25 History multivitamin 1 tab PO QAM 10/03/20 04/20/25 History trazodone 100 mg tablet 100 mg PO HS 10/03/20 04/20/25 History meclizine 25 mg tablet 25 mg PO TID PRN dizziness #30 tabs 06/14/22 04/20/25 Rx cholecalciferol (vitamin D3) 50 50 mcg PO DAILY 04/03/25 04/20/25 History mcg (2,000 unit) tablet fluorouracil 5 % topical cream 1 applic topical BID PRN NEEDED 04/03/25 04/20/25 History montelukast 10 mg tablet 10 mg PO QAM 04/03/25 04/20/25 History losartan 100 mg tablet 100 mg PO QAM 04/16/25 04/20/25 History metoprolol succinate 50 mg 50 mg PO QAM 04/16/25 04/20/25 History tablet,extended release 24 hr (Toprol XL) amlodipine 5 mg tablet 2.5 mg (1/2 x 5 mg) PO BID #30 tabs 04/19/25 04/20/25 Rx colchicine 0.6 mg tablet (Colcrys) 0.6 mg PO BID #60 tabs 04/19/25 04/20/25 Rx omeprazole 40 mg capsule,delayed 40 mg PO DAILY #30 caps 04/19/25 04/20/25 Rx release Past Med/Surg History Problem List (Updated 04/21/25 @ 01:20 by Maeve Ruelas DO) Odynophagia History of ventricular tachycardia (Acute) Left-sided chest pain (Acute) CAD (coronary artery disease) Pericarditis Paroxysmal ventricular tachycardia Coronary artery calcification Non-ST elevation (NSTEMI) myocardial infarction Dizziness (Acute) New onset a-fib (Acute) History of cardioversion (Acute) Chest pain (Acute) Ventricular tachycardia (Acute) H/O bilateral hip replacements Hypertension Prediabetes Dyslipidemia Cervical stenosis of spinal canal Encounter for pre-operative examination History of esophagogastroduodenoscopy (EGD) GERD (gastroesophageal reflux disease) (Chronic) Osteoarthritis (Chronic) Medical History Aortic root aneurysm Nausea and vomiting after administration of anesthetic agent Ocular migraine "a couple times a year" Surgical History History of mandibular surgery (~1984) to repair cartilage tear History of colonoscopy S/P epidural steroid injection Family History Daughter Leukemia Sister Multiple sclerosis Mother Hypertension Other No family history of adverse response to anesthesia Social History Smoking Status: Never smoker Second Hand Exposure: No; Do You Dip or Chew Tobacco: No; Hx Alcohol Use: Yes Alcohol type: hard liquor Alcohol Intake Frequency: 2-4 x/Month Hx Substance Use: No Preferred Language: Belarusian Communication Ability: Effective Application Security Consultant Required: No Beliefs That Will Affect Care: None Current Living Situation: Spouse Current Living Situation Comment: Lives w/ spouse at home Feels Safe at Home: Yes Assistive Devices: None Review of Systems Review of Systems: All systems reviewed & are unremarkable except as noted in HPI & below Physical Exam Physical Exam: General- Not in acute distress Head- atraumatic Eyes- PERRL. ENT- oropharynx clear Neck- supple, no JVD. Lungs- clear to auscultation no wheezing or crackles Heart- regular rhythm; no murmur, no gallop. Abdomen- normal bowel sounds, soft, nontender, no distension Extremities- no pretibial edema, no erythema seen Neuro- alert, oriented PERRL, no facial palsy; no dysarthria; moves extremities Results & Data Results & Data Vital Signs (Past 12 Hours) Vital Signs Temp Pulse Pulse Resp BP BP Pulse Ox 04/21/25 01:01 80 18 152/99 H 93 04/21/25 00:30 90 20 124/79 93 04/21/25 00:00 77 17 95/71 L 94 04/20/25 23:30 78 19 90/67 L 94 04/20/25 23:24 73 04/20/25 23:00 76 16 91/61 L 93 04/20/25 23:00 82 16 128/77 98 04/20/25 22:30 70 20 123/84 92 04/20/25 21:00 68 16 138/74 94 04/20/25 19:30 71 23 126/90 93 04/20/25 19:07 74 04/20/25 19:00 72 18 114/87 93 04/20/25 17:55 63 16 98 04/20/25 17:47 36.1 C L 79 18 154/93 H 94 04/20/25 17:41 O2 Del Method 04/21/25 01:01 04/21/25 00:30 04/21/25 00:00 04/20/25 23:30 04/20/25 23:24 04/20/25 23:00 04/20/25 23:00 Room Air 04/20/25 22:30 04/20/25 21:00 04/20/25 19:30 04/20/25 19:07 04/20/25 19:00 04/20/25 17:55 Room Air 04/20/25 17:47 04/20/25 17:41 Room Air Diagnostic Findings Laboratory Results WBC 10.83 K/ul (4.8-10.8) H 04/20/25 Unknown RBC 4.58 M/uL (4.70-6.10) L 04/20/25 Unknown Hgb 15.5 g/dL (14.0-18.0) 04/20/25 Unknown Hct 44.0 % (42.0-52.0) 04/20/25 Unknown MCV 96.1 fL (80.0-100.0) 04/20/25 Unknown MCH 33.8 pg (25.0-34.0) 04/20/25 Unknown MCHC 35.2 g/dL (32.0-36.0) 04/20/25 Unknown RDW Std Deviation 43.5 fL (36.4-46.3) 04/20/25 Unknown RDW Coeff of Roney 12.2 % (11.5-14.5) 04/20/25 Unknown Plt Count 187 K/uL (130-400) 04/20/25 Unknown MPV 10.0 fL (9.4-12.4) 04/20/25 Unknown Immature Gran % (Auto) 0.5 % 04/20/25 Unknown Neut % (Auto) 76.2 % 04/20/25 Unknown Lymph % (Auto) 13.1 % 04/20/25 Unknown Cass % (Auto) 8.0 % 04/20/25 Unknown Eos % (Auto) 1.8 % 04/20/25 Unknown Baso % (Auto) 0.4 % 04/20/25 Unknown Neut # (Auto) 8.26 K/uL (1.40-6.50) H 04/20/25 Unknown Lymph # (Auto) 1.42 K/uL (1.20-3.40) 04/20/25 Unknown Cass # (Auto) 0.87 K/uL (0.11-0.59) H 04/20/25 Unknown Eos # (Auto) 0.19 K/uL (0.00-0.50) 04/20/25 Unknown Baso # (Auto) 0.04 K/uL (0.00-0.20) 04/20/25 Unknown Immature Gran # (Auto) 0.05 K/uL (0.01-0.20) 04/20/25 Unknown Sodium 136 mmol/L (136-145) 04/20/25 Unknown Potassium 4.0 mmol/L (3.5-5.1) 04/20/25 Unknown Chloride 103 mmol/L (98-107) 04/20/25 Unknown Carbon Dioxide 27 mmol/L (21-32) 04/20/25 Unknown Anion Gap 6 (3-11) 04/20/25 Unknown BUN 19 mg/dl (6-23) 04/20/25 Unknown Creatinine 0.94 mg/dl (0.6-1.4) 04/20/25 Unknown Est Cr Clr Drug Dosing 90.6 ml/min 04/20/25 Unknown eGFR 86.13 04/20/25 Unknown BUN/Creatinine Ratio 20.2 (10-20) H 04/20/25 Unknown Glucose 132 mg/dl (70-99(Fasting)) H 04/20/25 Unknown Calcium 9.5 mg/dl (8.6-10.3) 04/20/25 Unknown Total Bilirubin 2.4 mg/dl (0.2-1.0) H 04/20/25 Unknown AST 26 U/L (13-39) 04/20/25 Unknown ALT 21 U/L (7-52) 04/20/25 Unknown Alkaline Phosphatase 74 U/L (34-104) 04/20/25 Unknown Troponin I High Sens 19.4 pg/ml (0-20) 04/20/25 Unknown Total Protein 7.5 gm/dl (6.0-8.3) 04/20/25 Unknown Albumin 4.3 gm/dl (3.4-5.0) 04/20/25 Unknown Globulin 3.2 gm/dl (2.5-4.0) 04/20/25 Unknown Albumin/Globulin Ratio 1.3 (0.9-2) 04/20/25 Unknown Lipase 35 U/L (11-82) 04/20/25 Unknown Impressions Chest X-Ray 04/20/25 17:55 HISTORY: Chest pain TECHNIQUE: Portable AP radiograph of the chest. COMPARISON: Chest CT dated 04/16/2025. FINDINGS: Mild linear opacity at the left lung base Favoring atelectasis. Clear right lung. No pneumothorax or effusion. Left subclavian approach dual-lead pacer/AICD. Normal heart size. Left-sided aortic arch. Midline trachea. Cervical spine fusion hardware. No acute osseous abnormality. The included upper abdomen is unremarkable. IMPRESSION: * No acute cardiopulmonary findings. * Mild linear opacities involving the left lower lung favoring atelectasis. Electronically signed by Ricky Gonzales 04-20-2025 8:56 PM ECG Additional Comments: ECG. Normal sinus rhythm rate of 68. Right bundle branch block. Left anterior fascicular block. Bifascicular block. QTc 440 Code Status & VTE Plan VTE Prophylaxis Plan VTE Prophylaxis will be ordered: Yes
[2025-04-21] MEDS: ASPIRIN 81 MG ECTAB PO STA (03:10)
[2025-04-21] MEDS: COLCHICINE 0.6 MG TAB PO ONE (03:11)
[2025-04-21] MEDS: MELATONIN 3 MG TAB PO STA (03:11)
[2025-04-21] MEDS: ATORVASTATIN 20 MG TAB PO STA (03:12)
[2025-04-21] MEDS ORDERED: POLYETHYLENE (MIRALAX) 17 GM PACK PO PRN (03:57)
[2025-04-21] MEDS ORDERED: NITROGLYCERIN SL 0.4 MG/TAB TAB SL PRN (03:57)
[2025-04-21] MEDS ORDERED: MECLIZINE HCL 25 MG TAB PO PRN (03:57)
[2025-04-21] MEDS: SODIUM CHLORIDE 0.9% 1,000 ML IV SCH (04:56)
[2025-04-21 05:13] LABS: Hematocrit (blood only) 38.0 % (42.0-52.0); Hemoglobin 13.4 g/dL (14.0-18.0); Immature Granulocytes # (auto) 0.06 K/uL (0.01-0.20); Immature Granulocytes % (auto) 0.6 %; Mean Corpuscular Hemoglobin 33.8 pg (25.0-34.0); Mean Corpuscular Volume 95.7 fL (80.0-100.0); Platelet Count 173 K/uL (130-400); RDW Standard Deviation 42.1 fL (36.4-46.3); Red Blood Count 3.97 M/uL (4.70-6.10); White Blood Count 9.86 K/ul (4.8-10.8)
[2025-04-21 05:48] LABS: Anion Gap 5.0 (3-11); Blood Urea Nitrogen 17.0 mg/dl (6-23); Calcium 8.6 mg/dl (8.6-10.3); Carbon Dioxide 24.0 mmol/L (21-32); Chloride 107.0 mmol/L (98-107); Creatinine Clr Calc Pharmacy 86.9 ml/min; Glucose 136.0 mg/dl (70-99(Fasting)); Magnesium 2.0 mg/dl (1.7-2.4); Potassium 4.9 mmol/L (3.5-5.1); Sodium 136.0 mmol/L (136-145)
[2025-04-21] MEDS: OPTIRAY 320 125ml IV ONE (07:20)
[2025-04-21] MEDS: HYDROmorphone INJ 0.5 MG/0.5 ML SYR IV PRN (07:30)
[2025-04-21] MEDS: LOSARTAN POTASSIUM 50 MG TAB PO SCH (07:51)
[2025-04-21] MEDS: MONTELUKAST SODIUM 10 MG TABLET PO SCH (07:52)
[2025-04-21] MEDS: CHOLECALCIFEROL 25 MCG (1000 UNITS) TAB PO SCH (07:53)
[2025-04-21] MEDS: COLCHICINE 0.6 MG TAB PO SCH (07:53)
[2025-04-21] MEDS: MULTIVITAMIN TAB PO SCH (07:53)
--- NOTE | 2025-04-21 08:27 | CT Scan Report ---
EXAM: CT angio chest PE protocol CLINICAL HISTORY: PE TECHNIQUE: Contiguous 3.[address] angiographic images of the chest were acquired with the administration of intravenous contrast. Coronal and sagittal reconstructions were obtained. Contrast was administered for post-contrast images. One of these 3D techniques was utilized: Maximum Intensity Pixel (MIP), 3D Reconstructed Images, Volume Rendered Images, and Surface Shaded Rendering. One of the following dose reduction techniques was utilized for this exam: Automated exposure control, adjustment of the mA and/or kV according to patient size, and use of iterative reconstruction. COMPARISON: 04/16/2025 FINDINGS: Pulmonary Arteries: Pulmonary arteries are normal in size and opacification. No evidence of pulmonary embolism. No stenosis or filling defects. Aorta: Mild mural atherosclerotic aortic calcification. Mildly dilated aortic root measuring approximately 4.5 cm. Superior Vena Cava (SVC) and Inferior Vena Cava (IVC): Normal opacification and caliber. No evidence of thrombus or obstruction. Coronary Arteries: Coronary arteries are well-opacified. No significant stenosis or atherosclerotic changes. Mediastinum: Few prevascular subcentimetric lymph nodes. Normal appearance of the thymus. Heart: Cardiomegaly. No pericardial effusion. The cardiac pacemaker device with its electrode terminals in situ. Lungs: Left lung lower lobe posterior basal subsegmental collapse- consolidation with minimal pleural effusion. New finding. Unchanged atelectatic changes in posterior basal segment of right lower lobe, right middle lobe and left lingula. Bones: Spondylotic changes in the spine. No fractures or lytic/sclerotic lesions of the visualized bony structures. Normal alignment and bone density. Soft Tissues: Normal appearance of the visualized soft tissues. No abnormal masses or fluid collections. Stable small hepatic focal lesions likely cysts. IMPRESSION: 1. No CT evidence of pulmonary embolism, unchanged. 2. Left lung lower lobe posterior basal subsegmental collapse- consolidation with minimal pleural effusion. New finding. 3. Unchanged atelectatic changes in posterior basal segment of right lower lobe, right middle lobe and left lingula. 4. Clinical correlation is suggested. Electronically signed by Han Red 04-21-2025 08:24 AM
[2025-04-21] MEDS: METOPROLOL SUCC 50MG EXT REL TAB PO SCH ×2 (08:47→18:27)
--- NOTE | 2025-04-21 11:19 | Gastrointestinal Consultation ---
Date of Consultation April 21, 2025 Assessment & Plan (1) Odynophagia: (2) Chest pain: Plan Patient with a return of chest pain yesterday accompanied with having a hard time taking a deep breath. Discussed case with Dr. Tomlinson. - increase protonix to 40mg bid. - would check with cardiology to see if they feel his amlodipine could be changed to diltiazem to trial for spasms. - patient with several cardiology concerns. will await cardiology consultation. - breathing issues may stem from left lung lower lobe subsegmental collapse seen on CTA. - Further recommendations to come with Supervising GI provider on medical rounds. Please see co-signature comments. Supervising Physician Co-Signing Physician Notes Patient discharged readmitted. History of non-STEMI TN. Recent defibrillator placement. Now with chest discomfort. There is a question of esophageal spasm based on his history please refer to previous GI consultation note. He states this began after triple day yesterday. CT of the chest on admission did not show any esophageal fluid or retention. The pain is retrosternal radiates into the jaw this could certainly be cardiac. He is being followed by cardiology. GI was consulted reviewed the possibility of this esophageal spasm. On his last admission he did undergo an upper GI series this did not show esophageal stricture or significant esophageal pathology. He did have some thickened gastric folds. This can be pursued at some point in the future though would not likely be the cause for any of his current symptoms. He was able to swallow barium tablet without hang up. Patient does have some dysmotility which may account for his symptoms on and off times years. The acute deterioration of symptoms occurred around the time of his heart attack and placement of his defibrillator and would seem that there related. In regards to esophageal spasm the management would be clinical at any rate. PPI therapy. Candidate potentially for diltiazem if cardiology in a greement. I do not think an endoscopy at this point will give us more information I would currently have plus there are significant contraindications related to atrial fibrillation, recent TN and recent defibrillator placement. Reviewed with the patient. History of Present Illness Reason for Consultation: ? esophageal spasm Requesting Physician: Mookie Geller MD Attending Physician: Nicola Ramos MD History of Present Illness Patient is a 70 year old male with a past medical history significant for nonocclusive CAD, VT status post cardioversion status post ICD, history of PAF, hypertension, aortic root aneurysm/proximal ascending thoracic aorta enlargement, pulmonary hypertension, history of CVA, prediabetes, GERD who was recently in the hospital for chest pains thought to be from pericarditis and also possible esophageal spasms. He was discharged on 04/19/2025 and had done well until 04/20 in the afternoon. He had been out with his and ate chipolt e and about 2 hours later developed sudden return of his chest pain. He also notes feeling difficulty with taking a deep breath and feels like he cannot take a whole breathe in. In the ER Nitropaste was placed but did not help the pain. Dilaudid was noted to have helped. Patient thinks ICD has moved upwards from its original location and questions if this could be a cause for symptoms. no heartburn. the remainder of GI ros are unremarkable. 04/21/25 wbc 9.86, hgb 13.4, hct 38, plts 173, D dimer 2840, Na 136, K 4.9, BUN 17, Cr 0.98, 04/21/25 CTA - 1. No CT evidence of pulmonary embolism, unchanged. 2. Left lung lower lobe posterior basal subsegmental collapse- consolidation with minimal pleural effusion. New finding. 3. Unchanged atelectatic changes in posterior basal segment of right lower lobe, right middle lobe and left lingula. 4. Clinical correlation is suggested. UGI 04/19/25 - IMPRESSION: 1. Disordered esophageal motility with trace reflux 2. Nonspecific mild gastric rugal fold thickening 3. Mild fold thickening within the duodenal bulb Allergies Allergy/AdvReac Type Severity Reaction Status Date / Time oxycodone Allergy Intermediate itching/hyp Verified 04/20/25 22:37 eractivity lisinopril AdvReac Intermediate Cough Verified 04/20/25 22:37 Home Medications Medication Instructions Recorded Confirmed Type aspirin 81 mg tablet 81 mg PO HS 10/03/20 04/20/25 History atorvastatin 20 mg tablet 20 mg PO HS 10/03/20 04/20/25 History melatonin 10 mg tablet 10 mg PO HS 10/03/20 04/20/25 History multivitamin 1 tab PO QAM 10/03/20 04/20/25 History trazodone 100 mg tablet 100 mg PO HS 10/03/20 04/20/25 History meclizine 25 mg tablet 25 mg PO TID PRN dizziness #30 tabs 06/14/22 04/20/25 Rx cholecalciferol (vitamin D3) 50 50 mcg PO DAILY 04/03/25 04/20/25 History mcg (2,000 unit) tablet fluorouracil 5 % topical cream 1 applic topical BID PRN NEEDED 04/03/25 04/20/25 History montelukast 10 mg tablet 10 mg PO QAM 04/03/25 04/20/25 History losartan 100 mg tablet 100 mg PO QAM 04/16/25 04/20/25 History metoprolol succinate 50 mg 50 mg PO QAM 04/16/25 04/20/25 History tablet,extended release 24 hr (Toprol XL) amlodipine 5 mg tablet 2.5 mg (1/2 x 5 mg) PO BID #30 tabs 04/19/25 04/20/25 Rx colchicine 0.6 mg tablet (Colcrys) 0.6 mg PO BID #60 tabs 04/19/25 04/20/25 Rx omeprazole 40 mg capsule,delayed 40 mg PO DAILY #30 caps 04/19/25 04/20/25 Rx release Patient History Medical History Aortic root aneurysm Nausea and vomiting after administration of anesthetic agent Ocular migraine "a couple times a year" Surgical History History of mandibular surgery (~1984) to repair cartilage tear History of colonoscopy S/P epidural steroid injection Family History Daughter Leukemia Sister Multiple sclerosis Mother Hypertension Other No family history of adverse response to anesthesia Social History Smoking Status: Never smoker Second Hand Exposure: No; Do You Dip or Chew Tobacco: No; Hx Alcohol Use: Yes Alcohol type: hard liquor Alcohol Intake Frequency: 2-4 x/Month Hx Substance Use: No Preferred Language: Vietnamese Communication Ability: Effective It Consulting Manager Required: No Beliefs That Will Affect Care: None Current Living Situation: Spouse Current Living Situation Comment: Lives w/ spouse at home Feels Safe at Home: Yes Assistive Devices: None Review of Systems Review of Systems: All systems reviewed & are unremarkable except as noted in HPI & below Physical Exam Constitutional: WD/WN, vitals as above Respiratory: difficulty with taking deep breath Cardiovascular: Rate/Rhythm: regular rate and regular rhythm Gastrointestinal (Abdomen): normal bowel sounds, soft, nontender, no hepatosplenomegaly Psychiatric: Orientation: alert and oriented x 3 Results & Data Vital Signs (Past 12 Hours) Vital Signs Temp Pulse Pulse Resp BP BP Pulse Ox 04/21/25 07:31 98.2 F 60 20 127/76 95 04/21/25 07:27 63 04/21/25 04:04 68 20 92/60 L 91 04/21/25 02:45 82 16 101/67 92 04/21/25 01:01 80 18 152/99 H 93 04/21/25 00:30 90 20 124/79 93 04/21/25 00:00 77 17 95/71 L 94 04/20/25 23:30 78 19 90/67 L 94 04/20/25 23:24 73 O2 Del Method O2 Flow Rate 04/21/25 07:31 Nasal Cannula 2 04/21/25 07:27 04/21/25 04:04 Nasal Cannula 2 04/21/25 02:45 Room Air 04/21/25 01:01 04/21/25 00:30 04/21/25 00:00 04/20/25 23:30 04/20/25 23:24 Coding Level of Care Code 51768 INT INP/OBS CARE 2/55MIN Diagnoses Odynophagia R13.10 Chest pain R07.9
--- NOTE | 2025-04-21 12:12 | Cardiology Consultation ---
Date of Consultation April 21, 2025 Assessment & Plan (1) Acute pleuropericarditis: (2) History of ventricular tachycardia: Plan 70-year-old male with recent procedures and interventions as outlined above. Presents once again with pleuritic pain. Clinical presentation and constellation consistent with pleuropericarditis. Patient concerned regarding possible esophageal spasm as well. Previous use of nonsteroidals avoided due to GI concerns. Recommendation 1. Acute pleuritic pain likely pleuropericarditis. Continue colchicine Add nonsteroidal anti-inflammatory drugs with 600 mg 3 times daily of ibuprofen first dose now. Some risk of aggravating esophageal issues if also a concern would continue pantoprazole. If symptoms worsen may require esophageal evaluation. Transiently used corticosteroids during last hospitalization and may restart depending on clinical course. 2. Status post pacer defibrillator. Leads in appropriate position on x-ray and CT 3. Ventricular tachycardia with preserved LV systolic function 4. History of esophageal spasm: Continue amlodipine History of Present Illness Reason for Consultation: Pleuritic chest pain Attending Physician: Nicola Ramos MD History of Present Illness Patient is a 70-year-old male with recent hospitalization with full records available. Presented with sustained ventricular tachycardia on 04/03/2025 and underwent pacer defibrillator implantation. Rehospitalized with recurrent chest pain only to return again today etiology oscillating between esophageal versus pleuropericarditis. Last evening once again had recurrence of symptoms worse with deep inspiration severe and sharp in discomfort though with radiation to the throat. No fevers or chills no bleeding issues. ER evaluation without acute ST segment changes on EKG. No white cell elevation Lead position stable on CT and chest x-ray Allergies Allergy/AdvReac Type Severity Reaction Status Date / Time oxycodone Allergy Intermediate itching/hyp Verified 04/20/25 22:37 eractivity lisinopril AdvReac Intermediate Cough Verified 04/20/25 22:37 Home Medications Medication Instructions Recorded Confirmed Type aspirin 81 mg tablet 81 mg PO HS 10/03/20 04/20/25 History atorvastatin 20 mg tablet 20 mg PO HS 10/03/20 04/20/25 History melatonin 10 mg tablet 10 mg PO HS 10/03/20 04/20/25 History multivitamin 1 tab PO QAM 10/03/20 04/20/25 History trazodone 100 mg tablet 100 mg PO HS 10/03/20 04/20/25 History meclizine 25 mg tablet 25 mg PO TID PRN dizziness #30 tabs 06/14/22 04/20/25 Rx cholecalciferol (vitamin D3) 50 50 mcg PO DAILY 04/03/25 04/20/25 History mcg (2,000 unit) tablet fluorouracil 5 % topical cream 1 applic topical BID PRN NEEDED 04/03/25 04/20/25 History montelukast 10 mg tablet 10 mg PO QAM 04/03/25 04/20/25 History losartan 100 mg tablet 100 mg PO QAM 04/16/25 04/20/25 History metoprolol succinate 50 mg 50 mg PO QAM 04/16/25 04/20/25 History tablet,extended release 24 hr (Toprol XL) amlodipine 5 mg tablet 2.5 mg (1/2 x 5 mg) PO BID #30 tabs 04/19/25 04/20/25 Rx colchicine 0.6 mg tablet (Colcrys) 0.6 mg PO BID #60 tabs 04/19/25 04/20/25 Rx omeprazole 40 mg capsule,delayed 40 mg PO DAILY #30 caps 04/19/25 04/20/25 Rx release Patient History Medical History Aortic root aneurysm Nausea and vomiting after administration of anesthetic agent Ocular migraine "a couple times a year" Surgical History History of mandibular surgery (~1984) to repair cartilage tear History of colonoscopy S/P epidural steroid injection Family History Daughter Leukemia Sister Multiple sclerosis Mother Hypertension Other No family history of adverse response to anesthesia Social History Smoking Status: Never smoker Second Hand Exposure: No; Do You Dip or Chew Tobacco: No; Hx Alcohol Use: Yes Alcohol type: hard liquor Alcohol Intake Frequency: 2-4 x/Month Hx Substance Use: No Preferred Language: Pakistani Communication Ability: Effective Bench Mover Required: No Beliefs That Will Affect Care: None Current Living Situation: Spouse Current Living Situation Comment: Lives w/ spouse at home Feels Safe at Home: Yes Assistive Devices: None Physical Exam Constitutional: Uncomfortable appearing Eyes: PERRL, conjunctivae normal, anicteric sclerae ENMT: external ear and nose normal, oropharynx normal Neck: trachea midline, no thyromegaly Respiratory: Respiratory splinting secondary to pain Cardiovascular: Rate/Rhythm: regular rate and regular rhythm Heart Sounds: normal S1 and normal S2 Vessels: no JVD Extremities: no edema Chest (Breasts): Chest: + pacemaker (Pacer defibrillator site without irritation or edema) Gastrointestinal (Abdomen): normal bowel sounds, soft, nontender, no hepatosplenomegaly Musculoskeletal: no cyanosis or clubbing, extremities motor strength 5/5 Results & Data Vital Signs (Past 12 Hours) Vital Signs Temp Pulse Pulse Resp BP BP Pulse Ox 04/21/25 11:49 63 16 108/75 94 04/21/25 07:31 36.8 C 60 20 127/76 95 04/21/25 07:27 63 04/21/25 04:04 68 20 92/60 L 91 04/21/25 02:45 82 16 101/67 92 04/21/25 01:01 80 18 152/99 H 93 04/21/25 00:30 90 20 124/79 93 O2 Del Method O2 Flow Rate 04/21/25 11:49 Nasal Cannula 2 04/21/25 07:31 Nasal Cannula 2 04/21/25 07:27 04/21/25 04:04 Nasal Cannula 2 04/21/25 02:45 Room Air 04/21/25 01:01 04/21/25 00:30 Laboratory Results Laboratory Results - last 24 hr 04/20/25 04/20/25 04/21/25 19:47 Unknown 04:52 WBC 10.83 H 9.86 RBC 4.58 L 3.97 L Hgb 15.5 13.4 L Hct 44.0 38.0 L MCV 96.1 95.7 MCH 33.8 33.8 MCHC 35.2 35.3 RDW Std Deviation 43.5 42.1 RDW Coeff of [place]oney 12.2 12.1 Plt Count 187 173 MPV 10.0 10.1 Immature Gran % (Auto) 0.5 0.6 Neut % (Auto) 76.2 80.2 Lymph % (Auto) 13.1 8.1 [place] % (Auto) 8.0 9.2 Eos % (Auto) 1.8 1.6 Baso % (Auto) 0.4 0.3 Neut # (Auto) 8.26 H 7.90 H Lymph # (Auto) 1.42 0.80 L [place] # (Auto) 0.87 H 0.91 H Eos # (Auto) 0.19 0.16 Baso # (Auto) 0.04 0.03 Immature Gran # (Auto) 0.05 0.06 D-Dimer 2840 H* Sodium 136 136 Potassium 4.0 4.9 D Chloride 103 107 Carbon Dioxide 27 24 Anion Gap 6 5 BUN 19 17 Creatinine 0.94 0.98 Est Cr Clr Drug Dosing 90.6 86.9 eGFR 86.13 81.93 BUN/Creatinine Ratio 20.2 H 17.3 Glucose 132 H 136 H Calcium 9.5 8.6 Magnesium 2.0 Total Bilirubin 2.4 H AST 26 ALT 21 Alkaline Phosphatase 74 Troponin I High Sens 17.5 19.4 14.3 Total Protein 7.5 Albumin 4.3 Globulin 3.2 Albumin/Globulin Ratio 1.3 Lipase 35 PG Care Time/CCT Total # of Minutes Spent Total Time Spent with Patient: Total time spent is greater than 50% in coordination of care (as documented) at patient's floor/unit and/or counseling patient: Coding Level of Care Code 44205 INT INP/OBS CARE 3/75MIN Diagnoses Acute pleuropericarditis I30.9 History of ventricular tachycardia Z86.79
[2025-04-21] MEDS: IBUPROFEN 600 MG TAB PO STA (13:36)
[2025-04-21] MEDS: IBUPROFEN 600 MG TAB PO SCH (15:30)
--- NOTE | 2025-04-21 15:56 | Communication Note ---
Date of Service: April 21, 2025 Patient seen posthospitalization clinically improved following single dose of ibuprofen. Less pleuritic pain and discomfort. Pacer defibrillator interrogated with normal lead function and resistance Transient atrial fibrillation noted this afternoon lasting 2 to 3 minutes asymptomatic. Recommendations: 1. Acute pleuropericarditis. Symptoms appear to improve responded to ibuprofen. Continue oral colchicine 2. Transient atrial fibrillation: Discussed treatment in detail with patient and family will increase metoprolol succinate now that patient has returned to sinus/AV paced rhythm. If persistent recurrence would load and treat with amiodarone though multiple drug-drug interactions including trazodone and colchicine. Holding anticoagulation given acute pleuropericarditis
--- NOTE | 2025-04-21 17:04 | Communication Note ---
Date of Service: April 21, 2025 The patient was seen and examined in telemetry unit in presence of the family members. He was admitted early this morning with chest pain and esophageal spasm causing the pain most likely. He has been feeling much better following administration of ibuprofen on top without medication He remains hemodynamically stable. A full progress note will be done tomorrow DR Sherie Ramos
[2025-04-21] MEDS: ACETAMINOPHEN 325 MG TAB PO PRN (18:27)
--- NOTE | 2025-04-21 19:08 | Electrocardiogram Report ---
Test Reason : Blood Pressure : */* mmHG Vent. Rate : 68 BPM Atrial Rate : 68 BPM P-R Int : 206 ms QRS Dur : 132 ms QT Int : 414 ms P-R-T Axes : * -68 33 degrees QTcB Int : 440 ms Normal sinus rhythm Right bundle branch block Left anterior fascicular block Bifascicular block Minimal voltage criteria for LVH, may be normal variant ( R in aVL ) Abnormal ECG When compared with ECG of 16-Apr-2025 08:28, Sinus rhythm has replaced Electronic atrial pacemaker Right bundle branch block has replaced Non-specific intra-ventricular conduction block Confirmed by Edin Awad ([id number]) on 04/21/2025 7:07:51 PM Referred By: REFERRED SELF Confirmed By: Edin Awad
[2025-04-21] MEDS: MELATONIN 3 MG TAB PO SCH (20:57)
[2025-04-21] MEDS: ASPIRIN 81 MG ECTAB PO SCH (20:58)
[2025-04-21] MEDS: ATORVASTATIN 20 MG TAB PO SCH (20:58)
[2025-04-21] MEDS: SODIUM CHLORIDE 0.9% 500 ML IV ONE (23:25)
--- NOTE | 2025-04-22 07:10 | Gastroenterology Progress Note ---
Date of Service April 22, 2025 Assessment & Plan (1) Chest pain: Plan: Clinically improved. Likely cardiac in etiology. No further GI workup warranted at this time. Can follow-up with GI as an outpatient if symptoms recur. Admission and Anticipated Discharge Date Admission Date: April 21, 2025 Subjective Chest pain improved no abdominal pain no shortness of breath Physical Exam Physical Exam: No acute distress Respiratory rate regular Cardiac rhythm regular Abdomen soft nontender Results & Data Results & Data Vital Signs (Past 12 Hours) Vital Signs Temp Pulse Pulse Resp BP BP Pulse Ox 04/22/25 03:17 36.9 C 67 16 109/60 96 04/21/25 23:57 105 H 107/73 04/21/25 23:15 110 H 100/64 04/21/25 22:53 92/68 L 04/21/25 22:39 36.6 C 16 94 04/21/25 22:00 124 H 04/21/25 20:00 04/21/25 19:26 36.8 C 79 16 106/77 94 04/21/25 19:11 128 H 20 119/79 97 O2 Del Method O2 Flow Rate 04/22/25 03:17 Room Air 04/21/25 23:57 04/21/25 23:15 04/21/25 22:53 04/21/25 22:39 Nasal Cannula 2 04/21/25 22:00 04/21/25 20:00 Nasal Cannula 2 04/21/25 19:26 Nasal Cannula 2 04/21/25 19:11 Nasal Cannula 2 PG Care Time/CCT Total # of Minutes Spent Total Time Spent with Patient: Total time spent is greater than 50% in coordination of care (as documented) at patient's floor/unit and/or counseling patient: Coding Level of Care Code 38086 SUB INP/OBS CARE 2/35MIN Diagnoses Chest pain R07.9
--- NOTE | 2025-04-22 09:43 | Electrocardiogram Report ---
Test Reason : Blood Pressure : */* mmHG Vent. Rate : 126 BPM Atrial Rate : * BPM P-R Int : * ms QRS Dur : 100 ms QT Int : 320 ms P-R-T Axes : * -68 58 degrees QTcB Int : 463 ms Accelerated Junctional rhythm with retrograde conduction with occasional Premature ventricular comple xes Left axis deviation Minimal voltage criteria for LVH, may be normal variant ( R in aVL ) Inferior infarct , age undetermined Anterolateral infarct , age undetermined Abnormal ECG When compared with ECG of 20-Apr-2025 17:55, Significant changes have occurred Confirmed by Timbo Dao ([id number]) on 04/22/2025 9:42:37 AM Referred By: REFERRED SELF Confirmed By: Timbo Dao
--- NOTE | 2025-04-22 12:57 | Hospitalist Progress Note ---
Date of Service April 22, 2025 Assessment & Plan (1) Chest pain: Plan: 70-year-old male with past medical history significant for nonocclusive CAD, VT status post cardioversion status post ICD, history of PAF, hypertension, aortic root aneurysm/proximal ascending thoracic aorta enlargement, pulmonary hypertension, history of CVA, prediabetes, GERD who was recently in the hospital for chest pains thought to be from pericarditis and also possible esophageal spasms and is on amlodipine and also colchicine was discharged on 04/19/2025 comes back with chest pains. Patient states since discharge was doing okay. Was ambulating okay. At 3 PM he started again having chest pains. It occurred while he was sitting in the chair. Taking deep breath chest hurts. Its mostly in the central chest region and in his neck and jaws. He thinks it is esophageal spasms. In the ER Nitropaste was placed but did not helped the pain. Dilaudid helped the pain but thinks it is coming back. Has headache. No runny nose or sore throat. No cough. No fevers. No nausea. No abdominal pain. Normal bowel and bladder movements. Hemodynamics are okay.Patient thinks ICD slightly moved upwards from its original location. Chest pains- pleuropericarditis versus esophageal spasm EKG unremarkable 2 sets of troponin negative History of pericarditis and esophageal spasms Recent cardiac catheter nonocclusive CAD Appreciate cardiology input and recommendationhas been getting ibuprofen 600 mg 3 times daily and helping Appreciate GI input and recommendationno plan for endoscopy and continue with current management He has been feeling much better since this morning Atrial flutter With a rate of around 120 noted to be last evening And also blood pressure low at the time and received some IV fluid Back to regular rhythm and the blood pressure remains on the lower side at 198/72 He was strongly advised to drink more fluid Possible esophageal spasms Continue omeprazole Has not been getting any diltiazem as was advised by the GI Denies any more pain History of pericarditis Continue colchicine Continue with colchicine and ibuprofen has been added No need to start steroid given the symptomatic improvement Patient with history of recent non-ST elevated ME Cardiac cath showed nonobstructive CAD On aspirin, statin and metoprolol succinate History of VT History of cardioversion Status post AICD Pacemaker interrogation as per cardiology Hypertension On amlodipine, losartan and metoprolol succinate Will monitor DVT prophylaxis SCDs Disposition Telemetry Full code. I spent a total of 53 minutes examining the patient, explaining findings of investigations, reviewing the chart and medications and planning care at the bedside. Admission and Anticipated Discharge Date Admission Date: April 21, 2025 Subjective 04/22/2025 The patient was seen and examined in telemetry unit He has had atrial flutter last evening but reverted to normal rhythm this morning Denies any more chest pain and/or palpitation Blood pressure remains stable at the lower side at 98/72 Review of Systems Review of Systems: All systems reviewed and are unremarkable except as noted below Physical Exam Physical Exam: Lying in bed without any acute distress Constitutional: well developed, well nourished and + ill appearing Eyes: PERRL, conjunctivae normal, anicteric sclerae ENMT: external ear and nose normal, oropharynx normal Neck: trachea midline, no thyromegaly Respiratory: no respiratory distress Auscultation: + lungs not clear to auscultation Cardiovascular: Rate/Rhythm: regular rate and regular rhythm; not tachycardic Heart Sounds: normal S1 and normal S2; no murmur Extremities: no edema Gastrointestinal (Abdomen): Inspection/Auscultation: normal bowel sounds; abdomen not distended Percussion/Palpation: abdomen soft; abdomen nontender Musculoskeletal: No acute arthritis involving any of the joint Neurologic: normal touch/pain/proprioception and moves all extremities; no focal motor deficits Psychiatric: A+Ox3, euthymic affect Lymphatic: no cervical or axillary lymphadenopathy Results & Data Results & Data Vital Signs (Past 12 Hours) Vital Signs Temp Pulse Pulse Resp BP Pulse Ox O2 Del Method 04/22/25 11:50 68 04/22/25 10:44 36.6 C 75 20 98/72 L 94 Room Air 04/22/25 10:32 95 Room Air 04/22/25 07:41 Nasal Cannula 04/22/25 07:41 96 H 04/22/25 07:38 36.6 C 80 20 127/68 92 Room Air 04/22/25 03:17 36.9 C 67 16 109/60 96 Room Air O2 Flow Rate 04/22/25 11:50 04/22/25 10:44 04/22/25 10:32 04/22/25 07:41 2 04/22/25 07:41 04/22/25 07:38 04/22/25 03:17 Medications Administered Current Inpatient Medications Acetaminophen (Acetaminophen 325 Mg Tab) 650 mg PO Q4H PRN PRN Reason: Pain or Fever Stop: 05/21/25 03:56 Last Admin: 04/21/25 18:27 Dose: 650 mg Amlodipine Besylate (Amlodipine Besylate 5 Mg Tab) 2.5 mg PO BID [facility] Stop: 05/21/25 08:59 Last Admin: 04/22/25 08:34 Dose: 2.5 mg Aspirin (Aspirin 81 Mg Ectab) 81 mg PO HS [facility] Stop: 05/21/25 20:59 Last Admin: 04/21/25 20:58 Dose: 81 mg Atorvastatin Calcium (Atorvastatin 20 Mg Tab) 20 mg PO HS [facility] Stop: 05/21/25 20:59 Last Admin: 04/21/25 20:58 Dose: 20 mg Colchicine (Colchicine 0.6 Mg Tab) 0.6 mg PO BID [facility] Stop: 05/21/25 08:59 Last Admin: 04/22/25 08:34 Dose: 0.6 mg Hydromorphone HCl (Hydromorphone Inj 0.5 Mg/0.5 Ml Syr) 0.5 mg IV Q4H PRN PRN Reason: Mod-Sev Pain (Scale 4-10) Stop: 05/05/25 03:56 Last Admin: 04/21/25 07:30 Dose: 0.5 mg Ibuprofen (Ibuprofen 600 Mg Tab) 600 mg PO TID [facility] Stop: 05/21/25 13:59 Last Admin: 04/22/25 08:32 Dose: 600 mg Losartan Potassium (Losartan Potassium 50 Mg Tab) [facility] [place] Stop: 05/21/25 08:59 Last Admin: 04/22/25 08:34 Dose: 100 mg Meclizine HCl (Meclizine Hcl 25 Mg Tab) 25 mg PO TID PRN PRN Reason: dizziness Stop: 05/21/25 03:56 Melatonin (Melatonin 3 Mg Tab) 9 mg PO [facility] Stop: 05/21/25 20:59 Last Admin: 04/21/25 20:57 Dose: 9 mg Metoprolol Succinate (Metoprolol Succ 50mg Ext Rel Tab) 50 mg PO BID [facility] Stop: 05/21/25 20:59 Last Admin: 04/22/25 08:33 Dose: 50 mg Montelukast Sodium (Montelukast Sodium 10 Mg Tablet) 10 mg PO QAM [facility] Stop: 05/21/25 08:59 Last Admin: 04/22/25 08:33 Dose: 10 mg Multivitamins (Multivitamin Tab) 1 tab PO QAM [facility] Stop: 05/21/25 08:59 Last Admin: 04/22/25 08:33 Dose: 1 tab Nitroglycerin (Nitroglycerin Sl 0.4 Mg/Tab Tab) 0.4 mg SL Q5M PRN PRN Reason: Chest Pain Stop: 05/21/25 03:56 Pantoprazole Sodium (Pantoprazole 40 Mg Tab) 40 mg PO BID [facility] Stop: 05/21/25 20:59 Last Admin: 04/22/25 08:33 Dose: 40 mg Polyethylene Glycol (Polyethylene (Miralax) 17 Gm Pack) 17 gm PO DAILY PRN PRN Reason: Constipation Stop: 05/21/25 03:56 Trazodone HCl (Trazodone Hcl 100 Mg Tab) 100 mg PO HS [facility] Stop: 05/21/25 20:59 Last Admin: 04/21/25 20:58 Dose: 100 mg Vitamin D (Cholecalciferol 25 Mcg (1000 Units) Tab) 50 mcg PO DAILY [facility] Stop: 05/21/25 08:59 Last Admin: 04/22/25 08:33 Dose: 50 mcg
--- NOTE | 2025-04-22 15:32 | Cardiology Progress Note ---
Date of Service April 22, 2025 Assessment & Plan (1) Acute pleuropericarditis: (2) History of ventricular tachycardia: Plan 70-year-old male with recent procedures and interventions as outlined above. Presents once again with pleuritic pain. Clinical presentation and const ellation consistent with pleuropericarditis. Patient concerned regarding possible esophageal spasm as well. Previous use of nonsteroidals avoided due to GI concerns. Recommendation 1. Acute pleuritic pain likely pleuropericarditis. Continue colchicine Add nonsteroidal anti-inflammatory drugs with 600 mg 3 times daily of ibuprofen first dose now. Some risk of aggravating esophageal issues if also a concern would continue pantoprazole. If symptoms worsen may require esophageal evaluation. Transiently used corticosteroids during last hospitalization and may restart depending on clinical course. 2. Status post pacer defibrillator. Leads in appropriate position on x-ray and CT 3. Ventricular tachycardia with preserved LV systolic function 4. History of esophageal spasm: Continue amlodipine 04/22/2025: -patient demonstrates improvement from a clinical perspective. Denies any recurrence of his chest discomfort since starting high dose NSAIDS and colc hicine. -Device interrogation yesterday showed transient episodes of A-fib lasting 2-3 minutes. -Review of telemetry this morning concerns for atrial flutter--Will discuss case with Dr. Avila and have her review telemetry to discuss ST vs Atypical Atrial flutter--patient is not currently on anticoagulation due to NSAID/colchicine regimen. Case has been discussed with Dr. Avila. Further recommendations regarding plan of care as per her assessment. I spent a total of 30 minutes on the date of service in preparation, delivery, documentation of the care provided to the patient excluding any time spent in the performance of separately billed services. YOSEF Goodman [facility] Cardiology [facility] Admission and Anticipated Discharge Date Admission Date: April 21, 2025 Supervising Physician Co-Signing Physician Notes I have reviewed the advanced practitioner's documentation on the date of service referenced in note, and I agree with, and take responsibility for the plan of care. I spent a total of [25] minutes coordinating, documenting, and providing care for this patient excluding time spent in the performance of separately billed services or time spent by another provider. 70-year-old male presented initially with chest pain April 03, 2025 with elevated troponins and sustained ventricular tachycardia cardiac cath at that time showed nonobstructive coronary artery disease mid LAD moderate stenosis. Patient underwent dual-chamber ICD implantation on 04/05/2025. He presented to the emergency room on April 16 with pleuritic chest pain was started on steroids and colchicine, concern of esophageal spasm .patient was discharged in April colchicine and steroids were discontinued on discharge. He presented back with chest pain pleuritic nature on 1218 patient was started on high-dose NSAIDs and with which he symptoms improved. He also underwent a device interrogation. Yesterday evening went into A-fib atrial flutter and converted back to sinus rhythm today in the morning around 11:30 AM. Currently patient reports that his chest pain has resolved he is back to his baseline has been walking in the corridor without any symptoms. Acute pleuropericarditis on colchicine on high-dose anti-inflammatories 600 mg 3 times daily started yesterday symptoms have significantly improved Paroxysmal atrial fibrillation and atrial flutter: Overnight went into A-fib a flutter but has spontaneously converted into sinus rhythm. Increase Toprol-XL to 75 mg twice daily .chadsvasc2 (hypertension 1, age 1, history of lacunar infarcts on MRI 2022 ) optimally would need to be on anticoagulation In view of pleuropericarditis and high-dose steroid holding on anticoag coagulation Will monitor for overnight. Risk-benefit ratio once Motrin dose is being reduced will need to start him on anticoagulation. Subjective 04/22/2025: Patient seen and examined in follow up today. Feeling "really well" per patient. He is resting in bed visiting with family. Has been out of bed and ambulated with PT. Denies any recurrence of chest pain, no pressure, no palpitations. Labs, vitals, diagnostics, telemetry and documentation reviewed. Telemetry reviewed showing Atrial flutter on telemetry rate 100--will discuss this with attending. Review of Systems Review of Systems: All systems reviewed & are unremarkable except as noted in HPI & below Physical Exam Constitutional: well developed and well nourished; no acute distress and not ill appearing Neck: normal visual inspection and trachea midline Respiratory: normal respiratory effort, lungs clear to auscultation Cardiovascular: Rate/Rhythm: + tachycardic (rate 100-105bpm ) Heart Sounds: normal S1 and normal S2 Vessels: dorsalis pedis pulses present; no JVD Skin: no rashes, warm and dry Psychiatric: A+Ox3, euthymic affect Results & Data Vital Signs (Past 12 Hours) Vital Signs Temp Pulse Pulse Resp BP Pulse Ox O2 Del Method 04/22/25 15:15 36.7 C 66 20 118/78 94 Room Air 04/22/25 14:50 67 04/22/25 11:50 68 04/22/25 10:44 36.6 C 75 20 98/72 L 94 Room Air 04/22/25 10:32 95 Room Air 04/22/25 07:41 Nasal Cannula 04/22/25 07:41 96 H 04/22/25 07:38 36.6 C 80 20 127/68 92 Room Air O2 Flow Rate 04/22/25 15:15 04/22/25 14:50 04/22/25 11:50 04/22/25 10:44 04/22/25 10:32 04/22/25 07:41 2 04/22/25 07:41 04/22/25 07:38 Laboratory Results Cardiac Enzymes 04/21/25 Range/Units 18:31 Troponin I High Sens 15.1 (0-20) pg/ml Intake and Output 04/22/25 04/22/25 04/22/25 06:59 14:59 22:59 Intake Total 650 / 1850 400 / 400 Balance 650 / 1250 400 / 400 Intake: IV 500 / 1500 Sodium Chloride 0.9% 500 ml @ 500 / 500 999 mls/hr IV .Q31M ONE Rx#: [id number] Oral 150 / 350 400 / 400 Other: Other Intake Source water # Unmeasured Voids 2 Weight 104.5 kg Weight Measurement Method Built in [facility] PG Care Time/CCT Total # of Minutes Spent Total Time Spent with Patient: Total time spent is greater than 50% in coordination of care (as documented) at patient's floor/unit and/or counseling patient: Coding Level of Care Code 22424 SUB INP/OBS CARE 3/50MIN Diagnoses Acute pleuropericarditis I30.9 History of ventricular tachycardia Z86.79
[2025-04-23 09:27] LABS: Alanine Aminotransferase 17.0 U/L (7-52); Albumin Globulin Ratio 1.5 (0.9-2); Albumin Level 3.8 gm/dl (3.4-5.0); Alkaline Phosphatase 52.0 U/L (34-104); Anion Gap 6.0 (3-11); Bilirubin,Total 1.4 mg/dl (0.2-1.0); Blood Urea Nitrogen 15.0 mg/dl (6-23); Calcium 8.9 mg/dl (8.6-10.3); Carbon Dioxide 27.0 mmol/L (21-32); Chloride 107.0 mmol/L (98-107); Creatinine Clr Calc Pharmacy 98.4 ml/min; Globulin 2.6 gm/dl (2.5-4.0); Glucose 126.0 mg/dl (70-99(Fasting)); Potassium 4.2 mmol/L (3.5-5.1); Sodium 140.0 mmol/L (136-145); Total Protein 6.4 gm/dl (6.0-8.3)
--- NOTE | 2025-04-23 09:33 | Electrocardiogram Report ---
Test Reason : Blood Pressure : */* mmHG Vent. Rate : 99 BPM Atrial Rate : 241 BPM P-R Int : * ms QRS Dur : 128 ms QT Int : 310 ms P-R-T Axes : 253 -71 61 degrees QTcB Int : 397 ms Atrial flutter with variable A-V block Left axis deviation Left ventricular hypertrophy with QRS widening ( R in aVL ) Abnormal ECG When compared with ECG of 21-Apr-2025 18:35, Atrial flutter has replaced Junctional rhythm QRS duration has increased Criteria for Anterior infarct are no longer Present Criteria for Anterolateral infarct are no longer Present ST elevation now present in Lateral leads Confirmed by Timbo Dao ([id number]) on 04/23/2025 9:32:57 AM Referred By: REFERRED SELF Confirmed By: Timbo Dao
--- NOTE | 2025-04-23 09:46 | Electrocardiogram Report ---
Test Reason : Blood Pressure : */* mmHG Vent. Rate : 62 BPM Atrial Rate : 62 BPM P-R Int : 230 ms QRS Dur : 136 ms QT Int : 456 ms P-R-T Axes : * -66 29 degrees QTcB Int : 462 ms Atrial-paced rhythm with prolonged AV conduction with Premature atrial complexes Left axis deviation Left ventricular hypertrophy with QRS widening ( R in aVL ) Abnormal ECG When compared with ECG of 21-Apr-2025 23:00, (unconfirmed) Electronic atrial pacemaker has replaced Atrial flutter Vent. rate has decreased by 37 bpm QT has lengthened Confirmed by Timbo Dao ([id number]) on 04/23/2025 9:46:08 AM Referred By: REFERRED SELF Confirmed By: Timbo Dao
[2025-04-23 10:40] VITALS: RESP 20; TEMP 98.1
--- NOTE | 2025-04-23 12:50 | Cardiology Progress Note ---
<Statement entered by Jenifer Avila MD - 04/23/25 17:49> I have reviewed the advanced practitioner's documentation on the date of service referenced in note, and I agree with, and take responsibility for the plan of care. I spent a total of [20] minutes coordinating, documenting, and providing care for this patient excluding time spent in the performance of separately billed services or time spent by another provider. 70-year-old male with history of sustained VT earlier this month underwent cardiac cath nonobstructive disease underwent ICD placement presents pleuritic chest pain diagnosed with acute pleuropericarditis also has been having paroxysmal A-fib Acute pleuropericarditis symptoms significantly improved with high-dose NSAIDs did discuss about the risks of NSAIDs and need for quick taper in 2 weeks 4 days of 600 mg 3 times daily followed by 400 mg 3 times daily for 4 days and then 400 mg twice daily for 4 days followed by 20 mg twice daily Will need to be started on anticoagulation once the dose is reduced Paroxysmal A-fib patient reports no prior history of clincial stroke however incidentally noted chronic infarct on MRI scan in 2022 Anticoagulation on hold because of acute pleuropericarditis and need to start Eliquis Date of Service April 23, 2025 Assessment & Plan (1) Acute pleuropericarditis: (2) History of ventricular tachycardia: Plan 70-year-old male with recent procedures and interventions as outlined above. Presents once again with pleuritic pain. Clinical presentation and constellation consistent with pleuropericarditis. Patient concerned regarding possible esophageal spasm as well. Previous use of nonsteroidals avoided due to GI concerns. Recommendation 1. Acute pleuritic pain likely pleuropericarditis. Continue colchicine Add nonsteroidal anti-inflammatory drugs with 600 mg 3 times daily of ibuprofen first dose now. Some risk of aggravating esophageal issues if also a concern would continue pantoprazole. If symptoms worsen may require esophageal evaluation. Transiently used corticosteroids during last hospitalization and may restart depending on clinical course. 2. Status post pacer defibrillator. Leads in appropriate position on x-ray and CT 3. Ventricular tachycardia with preserved LV systolic function 4. History of esophageal spasm: Continue amlodipine 04/22/2025: -patient demonstrates improvement from a clinical perspective. Denies any recurrence of his chest discomfort since starting high dose NSAIDS and colchicine. -Device interrogation yesterday showed transient episodes of A-fib lasting 2-3 minutes. -Review of telemetry this morning concerns for atrial flutter--Will discuss case with Dr. Avila and have her review telemetry to discuss ST vs Atypical Atrial flutter--patient is not currently on anticoagulation due to NSAID/colchicine regimen. 04/23/2025: -patient continues to demonstrate improvement from a cardiac perspective. He has been out of bed walking the halls without issue. He is able to lay flat with no discomfort. -Discussed telemetry findings with patient as well as device interrogation demonstrating intermittent episode of A-flutter on telemetry and a transient episode of A-fib prior to that on device interrogation. [id number] score: 2 -Patient and spouse are aware of the pathophysiology of A-fib and risk for a thromboembolic event in the setting of this irregular rhythm. Patient has not been started on anticoagulation due to high dose NSAID And colchcine regimen. As high dose NSAID is tapered down, the plan is for patient to start Eliquis for AC therapy. -Continue colchicine 0.6mg PO BID for a minimum of 3 months. -Continue Ibuprofen 600mg PO TID x1 week and then taper down by 400mg per day over the course of 1 week. -patient will need close lab monitoring of renal function outpatient, and once started on Eliquis will need a CBC within one week. Case has been discussed with Dr. Avila. Further recommendations regarding plan of care as per her assessment. I spent a total of 30 minutes on the date of service in preparation, delivery, documentation of the care provided to the patient excluding any time spent in the performance of separately billed services. YOSEF Goodman [facility] Cardiology [facility] Admission and Anticipated Discharge Date Admission Date: April 21, 2025 Subjective 04/23/2025: Patient seen and examined in follow up today. Feeling well from a cardiac perspective. offers no acute concerns. Labs, vitals, diagnostics, telemetry and documentation reviewed. Telemetry reviewed showing Paced, underlying sinus rhythm rate 60-70's. patient had converted from Atrial flutter to NSR yesterday at 1126 am with no recurrence since. Review of Systems Review of Systems: All systems reviewed & are unremarkable except as noted in HPI & below Physical Exam Constitutional: well developed and well nourished; no acute distress and not ill appearing Neck: normal visual inspection and trachea midline Respiratory: normal respiratory effort, lungs clear to auscultation Cardiovascular: Rate/Rhythm: + tachycardic (rate 100-105bpm ) Heart Sounds: normal S1 and normal S2 Vessels: dorsalis pedis pulses present; no JVD Skin: no rashes, warm and dry Psychiatric: A+Ox3, euthymic affect Results & Data Vital Signs (Past 12 Hours) Vital Signs Temp Pulse Pulse Resp BP Pulse Ox O2 Del Method 04/23/25 10:39 36.7 C 60 20 121/80 94 Room Air 04/23/25 08:56 60 04/23/25 07:07 36.3 C L 60 22 145/93 H 94 Room Air 04/23/25 02:59 36.4 C L 58 L 19 92/60 L 93 Room Air Laboratory Results Cardiac Enzymes 04/23/25 Range/Units 08:52 AST 20 (13-39) U/L Comprehensive Metabolic Panel 04/23/25 Range/Units 08:52 Sodium 140 (136-145) mmol/L Potassium 4.2 (3.5-5.1) mmol/L Chloride 107 (98-107) mmol/L Carbon Dioxide 27 (21-32) mmol/L BUN 15 (6-23) mg/dl Creatinine 0.86 (0.6-1.4) mg/dl Glucose 126 H (70-99(Fasting)) mg/dl Calcium 8.9 (8.6-10.3) mg/dl AST 20 (13-39) U/L ALT 17 (7-52) U/L Alkaline Phosphatase 52 (34-104) U/L Total Protein 6.4 (6.0-8.3) gm/dl Albumin 3.8 (3.4-5.0) gm/dl Intake and Output 04/22/25 04/23/25 04/23/25 22:59 06:59 14:59 Intake Total 240 / 640 Balance 240 / 640 Intake: Oral 240 / 640 Other: # Unmeasured Voids 2 Weight 104.2 kg Weight Measurement Method Built in [facility] PG Care Time/CCT Total # of Minutes Spent Total Time Spent with Patient: Total time spent is greater than 50% in coordination of care (as documented) at patient's floor/unit and/or counseling patient: Coding Level of Care Code 64573 SUB INP/OBS CARE 3/50MIN Diagnoses Acute pleuropericarditis I30.9 History of ventricular tachycardia Z86.79 Time Spent (min) 30
--- NOTE | 2025-04-23 14:24 | Hospitalist Progress Note ---
Date of Service April 23, 2025 Assessment & Plan (1) Chest pain: Plan: 70-year-old male with past medical history significant for nonocclusive CAD, VT status post cardioversion status post ICD, history of PAF, hypertension, aortic root aneurysm/proximal ascending thoracic aorta enlargement, pulmonary hypertension, history of CVA, prediabetes, GERD who was recently in the hospital for chest pains thought to be from pericarditis and also possible esophageal spasms and is on amlodipine and also colchicine was discharged on 04/19/2025 comes back with chest pains. Patient states since discharge was doing okay. Was ambulating okay. At 3 PM he started again having chest pains. It occurred while he was sitting in the chair. Taking deep breath chest hurts. Its mostly in the central chest region and in his neck and jaws. He thinks it is esophageal spasms. In the ER Nitropaste was placed but did not helped the pain. Dilaudid helped the pain but thinks it is coming back. Has headache. No runny nose or sore throat. No cough. No fevers. No nausea. No abdominal pain. Normal bowel and bladder movements. Hemodynamics are okay.Patient thinks ICD slightly moved upwards from its original location. Chest pains- pleuropericarditis versus esophageal spasm EKG unremarkable 2 sets of troponin negative History of pericarditis and esophageal spasms Recent cardiac catheter nonocclusive CAD Appreciate cardiology input and recommendationhas been getting ibuprofen 600 mg 3 times daily and helping Appreciate GI input and recommendationno plan for endoscopy and continue with current management He has been feeling much better since this morning Remains free from any chest pain and has been tolerating regular diet Atrial flutter With a rate of around 120 noted to be last evening And also blood pressure low at the time and received some IV fluid Back to regular rhythm and the blood pressure remains on the lower side at 198/72 He was strongly advised to drink more fluid Blood pressure remains stable and remains same sinus/paced rhythm without any more evidence of a flutter and/or fibrillation His beta-john has been increased recently and tolerating well Awaiting cardiology evaluation prior to likely discharge this afternoon Possible esophageal spasms Continue omeprazole Has not been getting any diltiazem as was advised by the GI Denies any more pain History of pericarditis Continue colchicine Continue with colchicine and ibuprofen has been added No need to start steroid given the symptomatic improvement Patient with history of recent non-ST elevated [place] Cardiac cath showed nonobstructive CAD On aspirin, statin and metoprolol succinate History of VT History of cardioversion Status post AICD Pacemaker interrogation as per cardiology Hypertension On amlodipine, losartan and metoprolol succinate Will monitor DVT prophylaxis SCDs Disposition Telemetry Full code. I spent a total of 37 Minutes examining the patient, explaining findings of investigations, reviewing the chart and medications and planning care at the bedside. Admission and Anticipated Discharge Date Admission Date: April 21, 2025 Subjective 04/22/2025 The patient was seen and examined in telemetry unit He has had atrial flutter last evening but reverted to normal rhythm this morning Denies any more chest pain and/or palpitation Blood pressure remains stable at the lower side at 98/72 04/23/2025 The patient was seen and examined in telemetry unit in presence of the He has been stable for the last 24 hours or more No more arrhythmias, A-fib and/or flutter No more spasm of the esophagus or any chest pain Review of Systems Review of Systems: All systems reviewed and are unremarkable except as noted below Physical Exam Physical Exam: Lying in bed without any acute distress Constitutional: well developed, well nourished and + ill appearing Eyes: PERRL, conjunctivae normal, anicteric sclerae ENMT: external ear and nose normal, oropharynx normal Neck: trachea midline, no thyromegaly Respiratory: no respiratory distress Auscultation: + lungs not clear to auscultation Cardiovascular: Rate/Rhythm: regular rate and regular rhythm; not tachycardic Heart Sounds: normal S1 and normal S2; no murmur Extremities: no edema Gastrointestinal (Abdomen): Inspection/Auscultation: normal bowel sounds; abdomen not distended Percussion/Palpation: abdomen soft; abdomen nontender Neurologic: normal touch/pain/proprioception and moves all extremities; no focal motor deficits Psychiatric: A+Ox3, euthymic affect Lymphatic: no cervical or axillary lymphadenopathy Results & Data Results & Data Vital Signs (Past 12 Hours) Vital Signs Temp Pulse Pulse Resp BP Pulse Ox O2 Del Method 04/23/25 13:00 60 04/23/25 10:39 36.7 C 60 20 121/80 94 Room Air 04/23/25 08:56 60 04/23/25 07:07 36.3 C L 60 22 145/93 H 94 Room Air 04/23/25 02:59 36.4 C L 58 L 19 92/60 L 93 Room Air Laboratory Results [facility] 04/23/25 08:52 Sodium 140 Potassium 4.2 Chloride 107 Carbon Dioxide 27 BUN 15 Creatinine 0.86 Glucose 126 H Calcium 8.9 Liver Function 04/23/25 Range/Units 08:52 Total Bilirubin 1.4 H (0.2-1.0) mg/dl AST 20 (13-39) U/L ALT 17 (7-52) U/L Alkaline Phosphatase 52 (34-104) U/L Albumin 3.8 (3.4-5.0) gm/dl Medications Administered Current Inpatient Medications Acetaminophen (Acetaminophen 325 Mg Tab) 650 mg PO Q4H PRN PRN Reason: Pain or Fever Stop: 05/21/25 03:56 Last Admin: 04/21/25 18:27 Dose: 650 mg Amlodipine Besylate (Amlodipine Besylate 5 Mg Tab) 2.5 mg PO BID [facility] Stop: 05/21/25 08:59 Last Admin: 04/23/25 08:00 Dose: 2.5 mg Aspirin (Aspirin 81 Mg Ectab) 81 mg PO HS [facility] Stop: 05/21/25 20:59 Last Admin: 04/22/25 21:09 Dose: 81 mg Atorvastatin Calcium (Atorvastatin 20 Mg Tab) 20 mg PO HS [facility] Stop: 05/21/25 20:59 Last Admin: 04/22/25 21:08 Dose: 20 mg Colchicine (Colchicine 0.6 Mg Tab) 0.6 mg PO BID [facility] Stop: 05/21/25 08:59 Last Admin: 04/23/25 08:00 Dose: 0.6 mg Hydromorphone HCl (Hydromorphone Inj 0.5 Mg/0.5 Ml Syr) 0.5 mg IV Q4H PRN PRN Reason: Mod-Sev Pain (Scale 4-10) Stop: 05/05/25 03:56 Last Admin: 04/21/25 07:30 Dose: 0.5 mg Ibuprofen (Ibuprofen 600 Mg Tab) 600 mg PO TID [facility] Stop: 05/21/25 13:59 Last Admin: 04/23/25 07:59 Dose: 600 mg Losartan Potassium (Losartan Potassium 50 Mg Tab) 100 mg PO QAM [facility] Stop: 05/21/25 08:59 Last Admin: 04/23/25 08:00 Dose: 100 mg Meclizine HCl (Meclizine Hcl 25 Mg Tab) 25 mg PO TID PRN PRN Reason: dizziness Stop: 05/21/25 03:56 Melatonin (Melatonin 3 Mg Tab) 9 mg PO HS [facility] Stop: 05/21/25 20:59 Last Admin: 04/22/25 21:14 Dose: 9 mg Metoprolol Succinate (Metoprolol Succ 50mg Ext Rel Tab) 50 mg PO BID [facility] Stop: 05/21/25 20:59 Last Admin: 04/23/25 08:00 Dose: 50 mg Montelukast Sodium (Montelukast Sodium 10 Mg Tablet) 10 mg PO QAM [facility] Stop: 05/21/25 08:59 Last Admin: 04/23/25 08:00 Dose: 10 mg Multivitamins (Multivitamin Tab) 1 tab PO QAM [facility] Stop: 05/21/25 08:59 Last Admin: 04/23/25 08:01 Dose: 1 tab Nitroglycerin (Nitroglycerin Sl 0.4 Mg/Tab Tab) 0.4 mg SL Q5M PRN PRN Reason: Chest Pain Stop: 05/21/25 03:56 Pantoprazole Sodium (Pantoprazole 40 Mg Tab) 40 mg PO BID [facility] Stop: 05/21/25 20:59 Last Admin: 04/23/25 08:00 Dose: 40 mg Polyethylene Glycol (Polyethylene (Miralax) 17 Gm Pack) 17 gm PO DAILY PRN PRN Reason: Constipation Stop: 05/21/25 03:56 Trazodone HCl (Trazodone Hcl 100 Mg Tab) 100 mg PO HS [facility] Stop: 05/21/25 20:59 Last Admin: 04/22/25 21:09 Dose: 100 mg Vitamin D (Cholecalciferol 25 Mcg (1000 Units) Tab) 50 mcg PO DAILY [facility] Stop: 05/21/25 08:59 Last Admin: 04/23/25 07:59 Dose: 50 mcg
[2025-04-23 15:54] VITALS: PULSE 63; O2SAT 95
[2025-04-23 16:07] VITALS: BP 106/77
--- NOTE | 2025-04-24 08:02 | Discharge Summary ---
Date of Service April 24, 2025 Admission HPI Per Admitting Provider 70-year-old male with past medical history significant for nonocclusive CAD, VT status post cardioversion status post ICD, history of PAF, hypertension, aortic root aneurysm/proximal ascending thoracic aorta enlargement, pulmonary hypertension, history of CVA, prediabetes, GERD who was recently in the hospital for chest pains thought to be from pericarditis and also possible esophageal spasms and is on amlodipine and also colchicine was discharged on 04/19/2025 comes back with chest pains. Patient states since discharge was doing okay. Was ambulating okay. At 3 PM he started again having chest pains. It occurred while he was sitting in the chair. Taking deep breath chest hurts. Its mostly in the central chest region and in his neck and jaws. He thinks it is esophageal spasms. In the ER Nitropaste was placed but did not helped the pain. Dilaudid helped the pain but thinks it is coming back. Has headache. No runny nose or sore throat. No cough. No fevers. No nausea. No abdominal pain. Normal bowel and bladder movements. Hemodynamics are okay.Patient thinks ICD slightly moved upwards from its original location. Past medical history. As mentioned above. Past surgical history. Left shoulder arthroscopy. Colonoscopy. EGD. Lumbar spine fusion surgery. Bilateral cataracts. Bilateral total hip replacements. Upper GI endoscopy. Social history. . No smoking. Alcohol rarely. No drug use. Family history. Daughter had ALL, recovered. Mother had hypertension. Maternal grandfather had diabetes. Admission Exam Per Admitting Provider Physical Exam: General- Not in acute distress Head- atraumatic Eyes- PERRL. ENT- oropharynx clear Neck- supple, no JVD. Lungs- clear to auscultation no wheezing or crackles Heart- regular rhythm; no murmur, no gallop. Abdomen- normal bowel sounds, soft, nontender, no distension Extremities- no pretibial edema, no erythema seen Neuro- alert, oriented PERRL, no facial palsy; no dysarthria; moves extremities Principal Diagnosis Pleuropericarditis, possible esophageal spasm, history of DVT status post AICD placement, paroxysmal atrial fibrillation/flutter Discharge Exam Lying in bed without any acute distress Constitutional well developed, well nourished and + ill appearing Eyes PERRL, conjunctivae normal, anicteric sclerae ENMT external ear and nose normal, oropharynx normal Neck trachea midline, no thyromegaly Respiratory no respiratory distress Auscultation: + lungs not clear to auscultation Cardiovascular Rate/Rhythm: regular rate and regular rhythm; not tachycardic Heart Sounds: normal S1 and normal S2; no murmur Extremities: no edema Gastrointestinal (Abdomen) Inspection/Auscultation: normal bowel sounds; abdomen not distended Percussion/Palpation: abdomen soft; abdomen nontender Neurologic normal touch/pain/proprioception and moves all extremities; no focal motor deficits Psychiatric A+Ox3, euthymic affect Lymphatic no cervical or axillary lymphadenopathy Discharge Data Allergies Allergy/AdvReac Type Severity Reaction Status Date / Time oxycodone Allergy Intermediate itching/hyp Verified 04/20/25 22:37 eractivity lisinopril AdvReac Intermediate Cough Verified 04/20/25 22:37 Consultations 04/20/25 23:01 ED Decision to Admit Stat 04/21/25 08:00 Consult Cardiology Routine Consult Gastroenterology Routine Ordered Studies 04/21/25 06:14 CT angio chest PE protocol Urgent Hospital Course (1) Chest pain: 70-year-old male with past medical history significant for nonocclusive CAD, VT status post cardioversion status post ICD, history of PAF, hypertension, aortic root aneurysm/proximal ascending thoracic aorta enlargement, pulmonary hypertension, history of CVA, prediabetes, GERD who was recently in the hospital for chest pains thought to be from pericarditis and also possible esophageal spasms and is on amlodipine and also colchicine was discharged on 04/19/2025 comes back with chest pains. Patient states since discharge was doing okay. Was ambulating okay. At 3 PM he started again having chest pains. It occurred while he was sitting in the chair. Taking deep breath chest hurts. Its mostly in the central chest region and in his neck and jaws. He thinks it is esophageal spasms. In the ER Nitropaste was placed but did not helped the pain. Dilaudid helped the pain but thinks it is coming back. Has headache. No runny nose or sore throat. No cough. No fevers. No nausea. No abdominal pain. Normal bowel and bladder movements. Hemodynamics are okay.Patient thinks ICD slightly moved upwards from its original location. Chest pains- pleuropericarditis versus esophageal spasm EKG unremarkable 2 sets of troponin negative History of pericarditis and esophageal spasms Recent cardiac catheter nonocclusive CAD Appreciate cardiology input and recommendationhas been getting ibuprofen 600 mg 3 times daily and helping Appreciate GI input and recommendationno plan for endoscopy and continue with current management He has been feeling much better since this morning Remains free from any chest pain and has been tolerating regular diet Atrial flutter With a rate of around 120 noted to be last evening And also blood pressure low at the time and received some IV fluid Back to regular rhythm and the blood pressure remains on the lower side at 198/72 He was strongly advised to drink more fluid Blood pressure remains stable and remains same sinus/paced rhythm without any more evidence of a flutter and/or fibrillation His beta-john has been increased recently and tolerating well Awaiting cardiology evaluation prior to likely discharge this afternoon Possible esophageal spasms Continue omeprazole Has not been getting any diltiazem as was advised by the GI Denies any more pain History of pericarditis Continue colchicine Continue with colchicine and ibuprofen has been added No need to start steroid given the symptomatic improvement Patient with history of recent non-ST elevated GA Cardiac cath showed nonobstructive CAD On aspirin, statin and metoprolol succinate History of VT History of cardioversion Status post AICD Pacemaker interrogation as per cardiology Hypertension On amlodipine, losartan and metoprolol succinate Will monitor DVT prophylaxis SCDs Disposition Telemetry Full code. I spent a total of 37 Minutes examining the patient, explaining findings of investigations, reviewing the chart and medications and planning care at the bedside. Total Time Total Time Spent Total Time Spent (In Minutes): 40 minutes Discharge Plan Discharge Items Patient Disposition: Home - Self-Care Reason For Visit: CHEST PAINS Discharge Diagnosis: Pleuropericarditis, possible esophageal spasm, history of DVT status post AICD placement, paroxysmal atrial fibrillation/flutter Condition on Discharge: Good Activity: Resume your previous activity Non-emergency contact: Primary Care Provider Call non-emergency contact if: you have any medication questions and your symptoms worsen Follow-up/Referrals: Vinny Montero, DO [Primary Care Provider] - (Your doctor's office will give you a call tomorrow with an appointment within 7 days) Diet: Heart Healthy Addtl Attending Provider Instructions: Please take precautions to avoid falls Take your medications as advisedyour Toprol-XL has been increased to 50 mg twice daily You are advised to take ibuprofen 600 mg 3 times daily daily for today, from tomorrow 04/24 400 mg 3 times daily for 4 days, 400 mg twice daily for next 4 days, 200 mg twice daily for next 4 days and 200 mg daily for next 4 days to finish. Please keep appointment with a healthcare provider Pending Studies at Discharge: No Stand-Alone Forms: [facility] [employer], Smoking Cessation Medications and DC Order Prescriptions: New metoprolol succinate 50 mg Tablet Extended Release 24 Hr 50 mg PO BID Qty: 60 0RF Continued multivitamin Tablet 1 tab PO QAM atorvastatin 20 mg Tablet 20 mg PO HS aspirin 81 mg Tablet 81 mg PO HS melatonin 10 mg Tablet 10 mg PO HS trazodone 100 mg Tablet 100 mg PO HS meclizine 25 mg tablet 25 mg PO TID PRN (Reason: dizziness) Qty: 30 0RF losartan 100 mg tablet 100 mg PO QAM amlodipine 5 mg Tablet 2.5 mg PO BID Qty: 30 0RF Rx Instructions: PER PT "READ INSTRUCTION ON SCRIPT WRONG, TOOK 5 MG 04/19/25, PM DOSE, AND 5 MG 04/20/25, AM DOSE. colchicine [Colcrys] 0.6 mg Tablet 0.6 mg PO BID Qty: 60 0RF omeprazole 40 mg capsule,delayed release(DR/EC) 40 mg PO DAILY Qty: 30 0RF montelukast 10 mg tablet 10 mg PO QAM fluorouracil 5 % cream 1 applic TOPICAL BID PRN (Reason: NEEDED) Rx Instructions: apply to skin cancer on ear for 2 weeks...keep tube away from pets...keep area out of sun cholecalciferol (vitamin D3) 50 mcg (2,000 unit) Tablet 50 mcg PO DAILY Discontinued metoprolol succinate [Toprol XL] 50 mg tablet extended release 24 hr 50 mg PO QAM Discharge Orders: Discharge Order (Routine); Ordered 04/23/25 Ordered By: Nicola Ramos Admission Data Admit Date/Time: 04/21/25 01:45 Attending Provider: Nicola Ramos Admit Provider: Mookie Geller Primary Care Provider: Vinny Montero Other Providers: Mookie Geller; Roslyn Harmon; Johnny Albarado; Blade Mcgee; Tej Huggins; Gamaliel Loya; Mina Muir; Nicole Land; Dolores Emanuel; Lor Peraza; Jenifer Avila; Roslyn Marie; Rashard Rodriguez; Jon Sanders; Cris Chu; Katrin Benavidez; Sera Saha; Hilda Gillette; Nico Lindquist; Cassy Mcgee; Vanita Carias; Norberto Stubbs; Atif Oneal; Jessie Barron; Helio Valdez Other Interventions: Discharge Summary Assessment (RN) Last Done: 04/23/25 16:06
--- NOTE | 2025-04-24 14:32 | Electrocardiogram Report ---
Test Reason : Blood Pressure : */* mmHG Vent. Rate : 86 BPM Atrial Rate : 234 BPM P-R Int : * ms QRS Dur : 120 ms QT Int : 392 ms P-R-T Axes : 258 -71 37 degrees QTcB Int : 469 ms Atrial flutter with variable A-V block Pulmonary disease pattern Left anterior fascicular block Left ventricular hypertrophy with QRS widening Abnormal ECG When compared with ECG of 21-Apr-2025 23:00, QT has lengthened Confirmed by Norberto Puga ([id number]) on 04/24/2025 2:31:36 PM Referred By: REFERRED SELF Confirmed By: Norberto Puga
== END 2025-04-23 16:59 | disposition home or self-care (01) | DRG 315 ==
LOC: ED 17:41 → EDINP 04-21 01:45 → 2S 04-21 13:16